=== PATIENT | female | born 1940 | race Caucasian/White ===

== ENCOUNTER → 2017-12-20 08:28 | Outpatient (CLI) | payer OTHER, MEDICARE, SELFPAY ==
[2017-12-20 09:33] LABS: Alanine Aminotransferase 24 IU/L (9-52); Albumin 4.3 g/dL (3.5-5.0); Albumin Globulin Ratio 1.3 (1.0-2.8); Alkaline Phosphatase 76 U/L (38-126); Aspartate Aminotransferase 29 IU/L (14-36); BUN Creatinine Ratio 16.3 (6-22); Bilirubin Total 0.6 mg/dL (0.2-1.3); Blood Urea Nitrogen 13 mg/dL (7-17); Calcium 9.3 mg/dL (8.4-10.2); Carbon Dioxide 28 mmol/L (22-32); Chloride 103 mmol/L (98-107); Cholesterol 238 mg/dL (140-199); Estimated Glomerular Filt Rate > 60.0 mL/min (>60); Globulin 3.3 g/dL (1.7-4.1); Glucose 97 mg/dL (80-110); HDL Cholesterol 75 mg/dL (40-60); HEMOLYSIS < 15 (0-50); LDL Cholesterol Calculated 138 mg/dL (<100); Potassium 4.2 mmol/L (3.4-5.1); Sodium 141 mmol/L (137-145); Total Protein 7.6 g/dL (6.3-8.2); Triglycerides 125 mg/dL (35-150)
[2017-12-20 09:49] LABS: Vitamin D 25 Hydroxy (D3) 48.3 ng/mL (30.0-100.0)
[2017-12-20 10:40] LABS: Folate 6.3 ng/mL (2.76-20.0); Vitamin B12 503 pg/mL (239-931)
== END ==
PROVIDERS: PCP Family Medicine; Visit Provider Physician Assistant
DX: E78.5 Hyperlipidemia, unspecified (principal); M81.0 Age-related osteoporosis without current pathological fracture; E55.9 Vitamin D deficiency, unspecified; R53.83 Other fatigue
CPT/HCPCS: 36415; 80053; 80061; 82306; 82607; 82746

== ENCOUNTER → 2017-12-28 07:53 | Outpatient (CLI) | payer OTHER, MEDICARE, SELFPAY | PROVIDERS: PCP Family Medicine; Visit Provider Internal Medicine | DX: E27.8 Other specified disorders of adrenal gland (principal) | CPT/HCPCS: 36415; 80299 ==

== ENCOUNTER → 2018-09-01 08:25 | Outpatient (CLI) | payer OTHER, MEDICARE, SELFPAY ==
[2018-09-01 09:17] LABS: Add Manual Diff / Slide Review NO; Basophils Absolute Auto 100 /uL (0-100); Basophils Percent Auto 1.4 % (0-2); Eosinophils Absolute Auto 100 /uL (0-450); Eosinophils Percent Auto 1.9 % (2-4); Hematocrit 44.1 % (36-46); Hemoglobin 14.6 g/dL (12.0-16.0); Lymphocytes Absolute Auto 1800 /uL (1100-4500); Lymphocytes Percent Auto 33.7 % (25-40); Mean Corpuscular HGB Conc 33.1 % (30-36); Mean Corpuscular Hemoglobin 29.9 PG (26-34); Mean Corpuscular Volume 90.2 fL (80-100); Monocytes Absolute Auto 400 /uL (0-900); Neutrophils Absolute Auto 3000 /uL (1500-7000); Platelet Count 214 X10^3/uL (150-400); Red Blood Cell Count 4.89 X10^6/uL (4.0-5.2); White Blood Cell Count 5.4 X10^3/uL (4.5-11.0)
[2018-09-01 09:25] LABS: Alanine Aminotransferase 23 IU/L (9-52); Albumin 4.4 g/dL (3.5-5.0); Albumin Globulin Ratio 1.4 (1.0-2.8); Alkaline Phosphatase 69 U/L (38-126); Aspartate Aminotransferase 26 IU/L (14-36); BUN Creatinine Ratio 18.8 (6-22); Bilirubin Total 0.8 mg/dL (0.2-1.3); Blood Urea Nitrogen 15 mg/dL (7-17); Calcium 9.5 mg/dL (8.4-10.2); Carbon Dioxide 29 mmol/L (22-32); Chloride 103 mmol/L (98-107); Cholesterol 248 mg/dL (140-199); Estimated Glomerular Filt Rate > 60.0 mL/min (>60); Globulin 3.1 g/dL (1.7-4.1); Glucose 104 mg/dL (80-110); HDL Cholesterol 93 mg/dL (40-60); HEMOLYSIS < 15 (0-50); LDL Cholesterol Calculated 138 mg/dL (<100); Potassium 4.2 mmol/L (3.4-5.1); Sodium 140 mmol/L (137-145); Total Protein 7.5 g/dL (6.3-8.2); Triglycerides 85 mg/dL (35-150)
== END ==
PROVIDERS: PCP Family Medicine; Visit Provider Family Medicine
DX: E78.5 Hyperlipidemia, unspecified (principal)
CPT/HCPCS: 36415; 80053; 80061; 85025

== ENCOUNTER → 2018-09-02 13:20 | Outpatient (CLI) | payer OTHER, MEDICARE, SELFPAY | PROVIDERS: PCP Family Medicine; Visit Provider Family Medicine ==

== ENCOUNTER → 2018-12-23 07:34 | Outpatient (CLI) | payer OTHER, MEDICARE, SELFPAY ==
[2018-12-23 09:04] LABS: Cortisol AM (Before 10AM) 1.67 ug/dL (4.46-22.7)
== END ==
PROVIDERS: Family Provider Internal Medicine; PCP Internal Medicine; Visit Provider Internal Medicine Endocrinology, Diabetes & Metabolism
DX: E27.8 Other specified disorders of adrenal gland (principal)
CPT/HCPCS: 36415; 80299; 82533

== ENCOUNTER → 2019-01-30 13:56 | Outpatient (CLI) | payer OTHER, MEDICARE, SELFPAY | PROVIDERS: Family Provider Internal Medicine; PCP Internal Medicine; Visit Provider Internal Medicine | DX: Z13.820 Encounter for screening for osteoporosis (principal); M81.0 Age-related osteoporosis without current pathological fracture; Z78.0 Asymptomatic menopausal state; Z90.722 Acquired absence of ovaries, bilateral | CPT/HCPCS: 77080 ==

== ENCOUNTER → 2019-07-21 13:15 | Outpatient (CLI) | payer OTHER, MEDICARE, SELFPAY ==
--- NOTE | 2019-08-14 15:59 | PM.CARDMON.1 ---
Treasury Management Sales Consultant Report Referral & Results Date Patient Seen: 07/21/19 Requesting provider: Chitra Lr Indication: Palpitations Duration of monitoring (days): 14 Diary information: There were 4 patient triggered events and 3 patient diary entries. These events were all associated with sinus rhythm and or PACs Data: Minimum heart rate identified was 50 beats per minute at 23:05 on 07/31/2019 Maximum sinus heart rate was 134 beats per minute at 07:50 on 07/27/2019 Maximum overall heart rate was 210 beats per minute at 10:14 on 07/23/2019 during a 5 beat run of SVT Approximately 1.4% of identified beats were supraventricular ectopic in origin or PACs Less than 1% of identified beats were PVCs or ventricular ectopic beats There were 9 runs of SVT/atrial tachycardia the longest lasting 13 beats at a rate of 121 beats per minute which was probably atrial tachycardia rather than true SVT Impression: Occasional PACs as above, perhaps associated patient's symptoms Clinical correlation suggested
== END ==
PROVIDERS: Family Provider Family Medicine; PCP Internal Medicine; Referring Provider Family Medicine; Visit Provider Family Medicine
DX: R00.2 Palpitations (principal)
CPT/HCPCS: 0296T; 0298T

== ENCOUNTER 2019-08-10 15:15 | Outpatient (RCR) | payer OTHER, MEDICARE, SELFPAY ==
--- NOTE | 2019-06-10 10:30 | PT.OPPOC ---
Physical, Occupational & Speech Therapy At [facility] Current Diagnoses Pain in right hip (06/10/19) Sacroiliitis, not elsewhere classified (06/10/19) Spinal stenosis, lumbar region without neurogenic claudication (06/10/19) Weakness (06/10/19) Visit Care Team Role Provider Type CARL Santana Primary Care Provider Advanced Supervisor [employer] Specialty: Family Practice Address: [address] [place] [address], [facility] [place], [address] Email: [email or web address] Jayy Zelaya MD Attending Provider Non-Staff Specialty: Orthopedics Address: [address] [place] [address], [id number] Email: Plan Of Care PT-OP-T Assessment and Plan Start: 06/10/19 12:29 Freq: Status: Active Protocol: Document 06/10/19 09:45 DCW (Rec: 06/11/19 11:21 DCW [id number]) Physical Therapy Assessment Rehab Potential Rehabilitation Potential Good Evaluation Complexity Number of Personal Factors/Comorbidities 1-2 Number of Body Systems Impaired 3 Clinical Presentation at Evaluation Stable Impairments Impairments Activity Tolerance,Pain,ROM, Soft Tissue Mobility,Strength, Tone Other Impairments history of R anterior-approach PATTI Goals Four Impairment Pt exhibits a 3-/5 MMT of her right hip internal rotators Usp Goal (LTG) Pt to present with a gross LE MMT of 4+/5 LTG Duration 08/09/19 Three Impairment Pt experiences increased pain when carrying a half gallon of milk Usp Goal (LTG) Pt to tolerate lifting ten pounds with no increased back or hip pain to improve her ability to carry groceries in from her car. LTG Duration 08/09/19 Two Impairment Pt unable to ascend and descend stairs with a step- over gait pattern Usp Goal (LTG) Pt to utilizer a step-over- step gait pattern 100% of the time when ascending or descending stairs LTG Duration 08/09/19 One Impairment Pt does not have an appropiate home exercise program Short Term Goal (STG) Pt to be independent and compliant with an appropriate HEP STG Duration 07/11/19 Assessment Summary Assessment Pt presents with right hip dysfunction caused by very weak R internal rotators combined with hypertonic external rotators, resulting in a changed gait pattern and sciaticia along her bilateral LEs, R>L. Pt has difficulty with ascending and descending stairs secondary to right leg weakness, and also struggles with lifting/carrying anything heavier than 4-5 pounds. Pt should benefit from skilled therapy focusing on hip strengthening, decreasing tone in her piriformis, QL, and ITB, core strengthening, and flexibility training. Physical Therapy Plan Frequency and Duration Frequency of Treatment 2x/Week Duration of Treatment 12 weeks Plan of Care Start Date 06/10/19 Plan of Care End Date 09/02/19 Therapeutic Interventions Therapeutic Interventions Gait Training,Home Exercise Program,Joint Mobilizations, Manual Therapy,Neuromuscular Re-education,Patient/Caregiver Education,Self-Care/Home Management,Soft Tissue Mobilization,Therapeutic Exercises Modalities Cold Pack/Ice Massage,Electric Stimulation,Hot Packs, Ultrasound Plan of Care Dates Plan of Care Start Date 06/10/19 Plan of Care End Date 09/02/19 Electronically Signed by: Rosendo Galan, PT 06/11/19 1125 Please Sign and Return: I have reviewed this Plan of Care and certify that the skilled therapy services above are required to meet the patient?s needs. Physician Signature Date Printed Name and Credentials Clinical Instructor Signature Printed Name and Credentials
--- NOTE | 2019-06-10 10:30 | PT.OIE ---
Current Diagnoses Pain in right hip (06/10/19) Sacroiliitis, not elsewhere classified (06/10/19) Spinal stenosis, lumbar region without neurogenic claudication (06/10/19) Weakness (06/10/19) Past Medical History (Last Updated 11/05/17 @ 16:30 by Rose Justin LPN) Abnormal Pap smear of cervix (Resolved ~1986) Bilateral tinnitus (Chronic Unknown) Cataracts, bilateral (Resolved 2014) Chickenpox (Resolved Unknown) Chronic back pain (Chronic 2006) Depression (Chronic Unknown) Fractures (Resolved 1999) GERD (gastroesophageal reflux disease) (Chronic ~2004) Hypercholesterolemia (Chronic ~2017) Measles (Resolved Unknown) Mumps (Resolved Unknown) Muscle spasm (Resolved 2011) Osteoarthritis (Chronic Unknown) Vertigo (Chronic 1981) Past Surgical History History of hip replacement History of total mastectomy Status post hysterectomy with oophorectomy Visit Care Team Role Provider Type CARL Santana Primary Care Provider Advanced Dry Cleaning Attendant Specialty: Family Practice Address: [address] [place] [address], [facility] Email: [email or web address] Jayy Zelaya MD Attending Provider Non-Staff Specialty: Orthopedics Address: [address] [place] [address], [facility] Email: Physical Therapy Initial Evaluation PT-OP-A Visit Information Start: 06/10/19 12:29 Freq: Status: Active Protocol: Document 06/10/19 09:45 DCW (Rec: 06/10/19 18:26 [facility] [id number]) Out-Patient Physical Therapy Visit Information Visit Information Visit Type Initial Evaluation Visit Start Time 09:45 Visit Stop Time 10:30 Total Visit Minutes 45 Visit Number 1 Number of PLASTERER APPRENTICE Visits 0 Evaluation Information Evaluation Date 06/10/19 PT-OP-B Current Condition Start: 06/10/19 12:29 Freq: Status: Active Protocol: Document 06/10/19 09:45 DCW (Rec: 06/10/19 18:26 [facility] [id number]) Current Condition History of Current Condition Onset Date one year Current Complaints Back pain and R leg pain/ weakness History of Current Condition Pt is a 78 year old female presenting with a one year history of low back and leg pain R>L, complete with occasional weakness. Pt reports that it feels like something slips out around L4, L5, and goes down my leg, mostly the right, sometimes bilaterally, and my right leg just gets really weak, and I can't go up stairs with it. I will go to the chiropractor, and he'll get me back in place , and it lasts about a day. I' ll go to a massage therapist, and she'll really work on soft tissue, and I'll feel better , but it still only lasts about one day. Pt also reports that if she lifts something, even carrying a half gallon of milk in from her car, she'll feel it in my SI. Prior Treatments and Tests 4 years s/p R anterior approach PATTI PT-OP-C Subjective Start: 06/10/19 12:29 Freq: Status: Active Protocol: Document 06/10/19 09:45 DCW (Rec: 06/10/19 18:26 [facility] [id number]) OP-PT Subjective Patient Comments Patient Comments Pt reports that the difficulty lifting is probably the worst thing about it, but that the difficulty on stairs affects her more frequently. Patient Reported Progress Worse Patient Questionnaires Oswestry Low Back Index Oswestry Score 19/50 = 38% OP-PT Pain Assessment Pain Assessment Grid Paper Pain Assessment Grid Completed Yes Location Right Lower Back Intensity 5 Scale Used Numeric (1 - 10) PT-OP-F Manual Assessment Start: 06/10/19 12:29 Freq: Status: Active Protocol: Document 06/10/19 09:45 DCW (Rec: 06/10/19 18:26 [facility] [id number]) Manual Assessments Soft Tissue Assessment Soft Tissue Mobility Assessment Severe tone and tenderness to palpation 3/4 - pain with wincing along right QL, right piriformis, right ITB Mild tone and tenderness to palpation 1/4 - complaint of pain along left QL and Piriformis PT-OP-K Range of Motion Start: 06/10/19 12:29 Freq: Status: Active Protocol: Document 06/10/19 09:45 DCW (Rec: 06/10/19 18:26 [facility] [id number]) Lumbar Spine Range of Motion Lumbar Spine Active Degrees Testing Position Standing Flexion 53 Extension 25 Lateral Flexion Left 45 Lateral Flexion Right 41 ROM Limitations Muscle Tone,Pain Comments Lateral flexion measured in cm from floor to finger tips PT-OP-L Special Tests Start: 06/10/19 12:29 Freq: Status: Active Protocol: Document 06/10/19 09:45 DCW (Rec: 06/10/19 18:26 [facility] [id number]) Special Tests Lumbar Spine Special Tests Straight Leg Raise Test Results HS tightness Comments R=50?, L=65? Slump Test Results Negative A-P Shearing Test Results R SI pain Compression Test Results Negative Hip Special Tests Nona's Test Test Results B positive Piriformis Test Results R positive IFEOMA Test Results R posterior hip pain PT-OP-M Strength Start: 06/10/19 12:29 Freq: Status: Active Protocol: Document 06/10/19 09:45 DC (Rec: 06/10/19 18:26 [facility] [id number]) Hip Strength Hip Manual Muscle Testing Right Flexion (L2) 4 Good Abduction 4 Good Adduction 4+ Good+ External Rotation 4 Good Internal Rotation 3- Fair- Left Flexion (L2) 4+ Good+ Abduction 4+ Good+ Adduction 4+ Good+ External Rotation 4+ Good+ Internal Rotation 4+ Good+ Knee Strength Knee Manual Muscle Testing Right Flexion (S2) 4+ Good+ Extension (L3) 4+ Good+ Left Flexion (S2) 4+ Good+ Extension (L3) 4+ Good+ PT-OP-Q Treatments Start: 06/10/19 12:29 Freq: Status: Active Protocol: Document 06/10/19 09:45 DC (Rec: 06/10/19 18:26 [facility] [id number]) Therapeutic Exercises Sitting Exercises 2 Sitting Exercise Name Resisted hip IR Side right 1 Sitting Exercise Name Seated Figure-4 piriformis stretch Side bilateral PT-OP-T Assessment and Plan Start: 06/10/19 12:29 Freq: Status: Active Protocol: Document 06/10/19 09:45 DC (Rec: 06/11/19 11:21 [facility] [id number]) Physical Therapy Assessment Rehab Potential Rehabilitation Potential Good Evaluation Complexity Number of Personal Factors/Comorbidities 1-2 Number of Body Systems Impaired 3 Clinical Presentation at Evaluation Stable Impairments Impairments Activity Tolerance,Pain,ROM, Soft Tissue Mobility,Strength, Tone Other Impairments history of R anterior-approach PATTI Goals Four Impairment Pt exhibits a 3-/5 MMT of her right hip internal rotators Jail Goal (LTG) Pt to present with a gross LE MMT of 4+/5 LTG Duration 08/09/19 Three Impairment Pt experiences increased pain when carrying a half gallon of milk Retail [employer] Specialist Goal (LTG) Pt to tolerate lifting ten pounds with no increased back or hip pain to improve her ability to carry groceries in from her car. LTG Duration 08/09/19 Two Impairment Pt unable to ascend and descend stairs with a step- over gait pattern Jail Goal (LTG) Pt to utilizer a step-over- step gait pattern 100% of the time when ascending or descending stairs LTG Duration 08/09/19 One Impairment Pt does not have an appropiate home exercise program Short Term Goal (STG) Pt to be independent and compliant with an appropriate HEP STG Duration 07/11/19 Assessment Summary Assessment Pt presents with right hip dysfunction caused by very weak R internal rotators combined with hypertonic external rotators, resulting in a changed gait pattern and sciaticia along her bilateral LEs, R>L. Pt has difficulty with ascending and descending stairs secondary to right leg weakness, and also struggles with lifting/carrying anything heavier than 4-5 pounds. Pt should benefit from skilled therapy focusing on hip strengthening, decreasing tone in her piriformis, QL, and ITB , core strengthening, and flexibility training. Physical Therapy Plan Frequency and Duration Frequency of Treatment 2x/Week Duration of Treatment 12 weeks Plan of Care Start Date 06/10/19 Plan of Care End Date 09/02/19 Therapeutic Interventions Therapeutic Interventions Gait Training,Home Exercise Program,Joint Mobilizations, Manual Therapy,Neuromuscular Re-education,Patient/Caregiver Education,Self-Care/Home Management,Soft Tissue Mobilization,Therapeutic Exercises Modalities Cold Pack/Ice Massage,Electric Stimulation,Hot Packs, Ultrasound
--- NOTE | 2019-06-12 09:43 | PT.OTN ---
Current Diagnoses Pain in right hip (06/12/19) Sacroiliitis, not elsewhere classified (06/12/19) Spinal stenosis, lumbar region without neurogenic claudication (06/12/19) Weakness (06/12/19) Physical Therapy Treatment Note PT-OP-A Visit Information Start: 06/10/19 12:29 Freq: Status: Active Protocol: Document 06/12/19 09:00 DCW (Rec: 06/12/19 09:43 DCW [id number]) Out-Patient Physical Therapy Visit Information Visit Information Visit Type Treatment Note Visit Start Time 09:00 Visit Stop Time 09:45 Total Visit Minutes 45 Visit Number 2 Number of DELIVERER MERCHANDISE Visits 0 Evaluation Information Evaluation Date 06/10/19 PT-OP-B Current Condition Start: 06/10/19 12:29 Freq: Status: Active Protocol: Document 06/10/19 09:45 DCW (Rec: 06/10/19 18:26 DCW [id number]) Current Condition History of Current Condition Onset Date one year Current Complaints Back pain and R leg pain/ weakness History of Current Condition Pt is a 78 year old female presenting with a one year history of low back and leg pain R>L, complete with occasional weakness. Pt reports that it feels like something slips out around L4, L5, and goes down my leg, mostly the right, sometimes bilaterally, and my right leg just gets really weak, and I can't go up stairs with it. I will go to the chiropractor, and he'll get me back in place , and it lasts about a day. I' ll go to a massage therapist, and she'll really work on soft tissue, and I'll feel better, but it still only lasts about one day. Pt also reports that if she lifts something, even carrying a half gallon of milk in from her car, she'll feel it in my SI. Prior Treatments and Tests 4 years s/p R anterior approach PATTI PT-OP-C Subjective Start: 06/10/19 12:29 Freq: Status: Active Protocol: Document 06/12/19 09:00 DCW (Rec: 06/12/19 09:43 DCW [id number]) OP-PT Subjective Patient Comments Patient Comments Surprisingly, it is feeling better. I was able to get up in the middle of the night and stretch it out, and I've already noticed that steps have been easier. PT-OP-F Manual Assessment Start: 06/10/19 12:29 Freq: Status: Active Protocol: Document 06/10/19 09:45 DCW (Rec: 06/10/19 18:26 DCW [id number]) Manual Assessments Soft Tissue Assessment Soft Tissue Mobility Assessment Severe tone and tenderness to palpation 3/4 - pain with wincing along right QL, right piriformis, right ITB Mild tone and tenderness to palpation 1/4 - complaint of pain along left QL and Piriformis PT-OP-K Range of Motion Start: 06/10/19 12:29 Freq: Status: Active Protocol: Document 06/10/19 09:45 DCW (Rec: 06/10/19 18:26 DCW [id number]) Lumbar Spine Range of Motion Lumbar Spine Active Degrees Testing Position Standing Flexion 53 Extension 25 Lateral Flexion Left 45 Lateral Flexion Right 41 ROM Limitations Muscle Tone,Pain Comments Lateral flexion measured in cm from floor to finger tips PT-OP-L Special Tests Start: 06/10/19 12:29 Freq: Status: Active Protocol: Document 06/10/19 09:45 DCW (Rec: 06/10/19 18:26 DCW [id number]) Special Tests Lumbar Spine Special Tests Straight Leg Raise Test Results HS tightness Comments R=50?, L=65? Slump Test Results Negative A-P Shearing Test Results R SI pain Compression Test Results Negative Hip Special Tests Nona's Test Test Results B positive Piriformis Test Results R positive IFEOMA Test Results R posterior hip pain PT-OP-M Strength Start: 06/10/19 12:29 Freq: Status: Active Protocol: Document 06/10/19 09:45 DCW (Rec: 06/10/19 18:26 DCW [id number]) Hip Strength Hip Manual Muscle Testing Right Flexion (L2) 4 Good Abduction 4 Good Adduction 4+ Good+ External Rotation 4 Good Internal Rotation 3- Fair- Left Flexion (L2) 4+ Good+ Abduction 4+ Good+ Adduction 4+ Good+ External Rotation 4+ Good+ Internal Rotation 4+ Good+ Knee Strength Knee Manual Muscle Testing Right Flexion (S2) 4+ Good+ Extension (L3) 4+ Good+ Left Flexion (S2) 4+ Good+ Extension (L3) 4+ Good+ PT-OP-Q Treatments Start: 06/10/19 12:29 Freq: Status: Active Protocol: Document 06/12/19 09:00 DCW (Rec: 06/12/19 09:43 DCW [id number]) Cardio Equipment Recumbent Elliptical (Biodex) Duration (Minutes) 5 Resistance 3 Seat Position 7 Gym Equipment Cable Column (Body Solid) Hip Adduction Resistance 40# Hip Abduction Resistance 20# Shuttle Recovery Unilateral Squats Resistance 37# Shuttle Recovery Platform Stable Bilateral Squats Resistance 75# Shuttle Recovery Platform Stable Therapeutic Exercises Supine Exercises Piriformis Stretch Supine Exercise Name [id number] chest Side right Standing Exercises Resisted hip rotation Standing Exercise Name Knee on stool, rotate ER/IR vs resistance Side right Resistance Lv 1 Equipment Used T-band Other Exercises Resisted Ambulation Other Exercise Name Resisted side-stepping, forward, backward Manual Therapy Treatment Soft Tissue Mobilization Piriformis Body Location R Piriformis Mobilization Type Strumming,Sustained Pressure Intensity/Depth Deep Psoas Body Location R Psoas Mobilization Type Strumming,Sustained Pressure Intensity/Depth Deep PT-OP-T Assessment and Plan Start: 06/10/19 12:29 Freq: Status: Active Protocol: Document 06/12/19 09:00 DCW (Rec: 06/12/19 09:43 DCW [id number]) Physical Therapy Assessment Impairments Impairments Activity Tolerance,Pain,ROM, Soft Tissue Mobility,Strength, Tone Other Impairments history of R anterior-approach PATTI Goals Four Impairment Pt exhibits a 3-/5 MMT of her right hip internal rotators Silk Soaker Goal (LTG) Pt to present with a gross LE MMT of 4+/5 LTG Duration 08/09/19 Three Impairment Pt experiences increased pain when carrying a half gallon of milk Group Home Goal (LTG) Pt to tolerate lifting ten pounds with no increased back or hip pain to improve her ability to carry groceries in from her car. LTG Duration 08/09/19 Two Impairment Pt unable to ascend and descend stairs with a step- over gait pattern Silk Soaker Goal (LTG) Pt to utilizer a step-over- step gait pattern 100% of the time when ascending or descending stairs LTG Duration 08/09/19 One Impairment Pt does not have an appropiate home exercise program Short Term Goal (STG) Pt to be independent and compliant with an appropriate HEP STG Duration 07/11/19 Assessment Summary Assessment Pt tolerated treatment very well, still demonstrates very limited IR strength, but improving overall with piriformis tone and gross LE strength. Physical Therapy Plan Frequency and Duration Frequency of Treatment 2x/Week Duration of Treatment 12 weeks Plan of Care Start Date 06/10/19 Plan of Care End Date 09/02/19 Therapeutic Interventions Therapeutic Interventions Gait Training,Home Exercise Program,Joint Mobilizations, Manual Therapy,Neuromuscular Re-education,Patient/Caregiver Education,Self-Care/Home Management,Soft Tissue Mobilization,Therapeutic Exercises Modalities Cold Pack/Ice Massage,Electric Stimulation,Hot Packs, Ultrasound
--- NOTE | 2019-06-29 10:30 | PT.OTN ---
Current Diagnoses Pain in right hip (06/29/19) Sacroiliitis, not elsewhere classified (06/29/19) Spinal stenosis, lumbar region without neurogenic claudication (06/29/19) Weakness (06/29/19) Physical Therapy Treatment Note PT-OP-A Visit Information Start: 06/10/19 12:29 Freq: Status: Active Protocol: Document 06/29/19 09:45 DCW (Rec: 06/29/19 10:30 DCW [id number]) Out-Patient Physical Therapy Visit Information Visit Information Visit Type Treatment Note Visit Start Time 09:45 Visit Stop Time 10:30 Total Visit Minutes 45 Visit Number 3 Number of BALANCE CLERK Visits 0 Evaluation Information Evaluation Date 06/10/19 PT-OP-B Current Condition Start: 06/10/19 12:29 Freq: Status: Active Protocol: Document 06/10/19 09:45 DCW (Rec: 06/10/19 18:26 DCW [id number]) Current Condition History of Current Condition Onset Date one year Current Complaints Back pain and R leg pain/ weakness History of Current Condition Pt is a 78 year old female presenting with a one year history of low back and leg pain R>L, complete with occasional weakness. Pt reports that it feels like something slips out around L4, L5, and goes down my leg, mostly the right, sometimes bilaterally, and my right leg just gets really weak, and I can't go up stairs with it. I will go to the chiropractor, and he'll get me back in place , and it lasts about a day. I' ll go to a massage therapist, and she'll really work on soft tissue, and I'll feel better, but it still only lasts about one day. Pt also reports that if she lifts something, even carrying a half gallon of milk in from her car, she'll feel it in my SI. Prior Treatments and Tests 4 years s/p R anterior approach PATTI PT-OP-C Subjective Start: 06/10/19 12:29 Freq: Status: Active Protocol: Document 06/29/19 09:45 DCW (Rec: 06/29/19 10:30 DCW [id number]) OP-PT Subjective Patient Comments Patient Comments Whatever you did last time worked wonders, so I've felt a big leap forward. PT-OP-F Manual Assessment Start: 06/10/19 12:29 Freq: Status: Active Protocol: Document 06/10/19 09:45 DCW (Rec: 06/10/19 18:26 [facility] [id number]) Manual Assessments Soft Tissue Assessment Soft Tissue Mobility Assessment Severe tone and tenderness to palpation 3/4 - pain with wincing along right QL, right piriformis, right ITB Mild tone and tenderness to palpation 1/4 - complaint of pain along left QL and Piriformis PT-OP-K Range of Motion Start: 06/10/19 12:29 Freq: Status: Active Protocol: Document 06/10/19 09:45 DCW (Rec: 06/10/19 18:26 DC [id number]) Lumbar Spine Range of Motion Lumbar Spine Active Degrees Testing Position Standing Flexion 53 Extension 25 Lateral Flexion Left 45 Lateral Flexion Right 41 ROM Limitations Muscle Tone,Pain Comments Lateral flexion measured in cm from floor to finger tips PT-OP-L Special Tests Start: 06/10/19 12:29 Freq: Status: Active Protocol: Document 06/10/19 09:45 DCW (Rec: 06/10/19 18:26 [facility] [id number]) Special Tests Lumbar Spine Special Tests Straight Leg Raise Test Results HS tightness Comments R=50?, L=65? Slump Test Results Negative A-P Shearing Test Results R SI pain Compression Test Results Negative Hip Special Tests Nona's Test Test Results B positive Piriformis Test Results R positive IFEOMA Test Results R posterior hip pain PT-OP-M Strength Start: 06/10/19 12:29 Freq: Status: Active Protocol: Document 06/10/19 09:45 DCW (Rec: 06/10/19 18:26 DC [id number]) Hip Strength Hip Manual Muscle Testing Right Flexion (L2) 4 Good Abduction 4 Good Adduction 4+ Good+ External Rotation 4 Good Internal Rotation 3- Fair- Left Flexion (L2) 4+ Good+ Abduction 4+ Good+ Adduction 4+ Good+ External Rotation 4+ Good+ Internal Rotation 4+ Good+ Knee Strength Knee Manual Muscle Testing Right Flexion (S2) 4+ Good+ Extension (L3) 4+ Good+ Left Flexion (S2) 4+ Good+ Extension (L3) 4+ Good+ PT-OP-Q Treatments Start: 06/10/19 12:29 Freq: Status: Active Protocol: Document 06/29/19 09:45 DCW (Rec: 06/29/19 10:30 DCW [id number]) Cardio Equipment Recumbent Elliptical (Biodex) Duration (Minutes) 5 Resistance 5 Seat Position 6 Gym Equipment Cable Column (Body Solid) Hip Adduction Resistance 40# Hip Abduction Resistance 20# Shuttle Recovery Unilateral Squats Resistance 37# Shuttle Recovery Platform Stable Bilateral Squats Resistance 75# Shuttle Recovery Platform Stable Therapeutic Exercises Standing Exercises Resisted hip rotation Standing Exercise Name Knee on stool, rotate ER/IR vs resistance Side right Resistance Lv 1 Equipment Used T-band Other Exercises Resisted Ambulation Other Exercise Name Resisted side-stepping, forward, backward Resistance Yellow Equipment Used T-band Manual Therapy Treatment Soft Tissue Mobilization Piriformis Body Location R Piriformis Mobilization Type Strumming,Sustained Pressure Intensity/Depth Deep Psoas Body Location R Psoas Mobilization Type Strumming,Sustained Pressure Intensity/Depth Deep PT-OP-T Assessment and Plan Start: 06/10/19 12:29 Freq: Status: Active Protocol: Document 06/29/19 09:45 DCW (Rec: 06/29/19 10:30 DCW [id number]) Physical Therapy Assessment Impairments Impairments Activity Tolerance,Pain,ROM, Soft Tissue Mobility,Strength, Tone Other Impairments history of R anterior-approach PATTI Goals Four Impairment Pt exhibits a 3-/5 MMT of her right hip internal rotators Group Home Goal (LTG) Pt to present with a gross LE MMT of 4+/5 LTG Duration 08/09/19 Three Impairment Pt experiences increased pain when carrying a half gallon of milk Marble Rubber Goal (LTG) Pt to tolerate lifting ten pounds with no increased back or hip pain to improve her ability to carry groceries in from her car. LTG Duration 08/09/19 Two Impairment Pt unable to ascend and descend stairs with a step- over gait pattern Group Home Goal (LTG) Pt to utilizer a step-over- step gait pattern 100% of the time when ascending or descending stairs LTG Duration 08/09/19 One Impairment Pt does not have an appropriate home exercise program Short Term Goal (STG) Pt to be independent and compliant with an appropriate HEP STG Duration 07/11/19 Assessment Summary Assessment Pt noticeably improved from her last appointment, moving with less pain and stiffness, able to perform exercises with minimal complaints of difficulty. Physical Therapy Plan Frequency and Duration Frequency of Treatment 2x/Week Duration of Treatment 12 weeks Plan of Care Start Date 06/10/19 Plan of Care End Date 09/02/19 Therapeutic Interventions Therapeutic Interventions Gait Training,Home Exercise Program,Joint Mobilizations, Manual Therapy,Neuromuscular Re-education,Patient/Caregiver Education,Self-Care/Home Management,Soft Tissue Mobilization,Therapeutic Exercises Modalities Cold Pack/Ice Massage,Electric Stimulation,Hot Packs, Ultrasound
--- NOTE | 2019-07-08 16:00 | PT.OTN ---
Current Diagnoses Pain in right hip (07/08/19) Sacroiliitis, not elsewhere classified (07/08/19) Spinal stenosis, lumbar region without neurogenic claudication (07/08/19) Weakness (07/08/19) Physical Therapy Treatment Note PT-OP-A Visit Information Start: 06/10/19 12:29 Freq: Status: Active Protocol: Document 07/08/19 15:15 DCW (Rec: 07/08/19 16:00 DCW [id number]) Out-Patient Physical Therapy Visit Information Visit Information Visit Type Treatment Note Visit Start Time 15:15 Visit Stop Time 16:00 Total Visit Minutes 45 Visit Number 4 Number of CRUSHER LOADER OPERATOR Visits 0 Evaluation Information Evaluation Date 06/10/19 PT-OP-B Current Condition Start: 06/10/19 12:29 Freq: Status: Active Protocol: Document 06/10/19 09:45 DCW (Rec: 06/10/19 18:26 DCW [id number]) Current Condition History of Current Condition Onset Date one year Current Complaints Back pain and R leg pain/ weakness History of Current Condition Pt is a 78 year old female presenting with a one year history of low back and leg pain R>L, complete with occasional weakness. Pt reports that it feels like something slips out around L4, L5, and goes down my leg, mostly the right, sometimes bilaterally, and my right leg just gets really weak, and I can't go up stairs with it. I will go to the chiropractor, and he'll get me back in place , and it lasts about a day. I' ll go to a massage therapist, and she'll really work on soft tissue, and I'll feel better, but it still only lasts about one day. Pt also reports that if she lifts something, even carrying a half gallon of milk in from her car, she'll feel it in my SI. Prior Treatments and Tests 4 years s/p R anterior approach PATTI PT-OP-C Subjective Start: 06/10/19 12:29 Freq: Status: Active Protocol: Document 07/08/19 15:15 DCW (Rec: 07/08/19 16:00 DCW [id number]) OP-PT Subjective Patient Comments Patient Comments My back hasn't hurt since my first visit. Pt notes she woke up today with everything hurting, but that her hip and back are not the issue. PT-OP-F Manual Assessment Start: 06/10/19 12:29 Freq: Status: Active Protocol: Document 06/10/19 09:45 DCW (Rec: 06/10/19 18:26 DCW [id number]) Manual Assessments Soft Tissue Assessment Soft Tissue Mobility Assessment Severe tone and tenderness to palpation 3/4 - pain with wincing along right QL, right piriformis, right ITB Mild tone and tenderness to palpation 1/4 - complaint of pain along left QL and Piriformis PT-OP-K Range of Motion Start: 06/10/19 12:29 Freq: Status: Active Protocol: Document 06/10/19 09:45 DCW (Rec: 06/10/19 18:26 DCW [id number]) Lumbar Spine Range of Motion Lumbar Spine Active Degrees Testing Position Standing Flexion 53 Extension 25 Lateral Flexion Left 45 Lateral Flexion Right 41 ROM Limitations Muscle Tone,Pain Comments Lateral flexion measured in cm from floor to finger tips PT-OP-L Special Tests Start: 06/10/19 12:29 Freq: Status: Active Protocol: Document 06/10/19 09:45 DCW (Rec: 06/10/19 18:26 DCW [id number]) Special Tests Lumbar Spine Special Tests Straight Leg Raise Test Results HS tightness Comments R=50?, L=65? Slump Test Results Negative A-P Shearing Test Results R SI pain Compression Test Results Negative Hip Special Tests Nona's Test Test Results B positive Piriformis Test Results R positive IFEOMA Test Results R posterior hip pain PT-OP-M Strength Start: 06/10/19 12:29 Freq: Status: Active Protocol: Document 06/10/19 09:45 DCW (Rec: 06/10/19 18:26 DCW [id number]) Hip Strength Hip Manual Muscle Testing Right Flexion (L2) 4 Good Abduction 4 Good Adduction 4+ Good+ External Rotation 4 Good Internal Rotation 3- Fair- Left Flexion (L2) 4+ Good+ Abduction 4+ Good+ Adduction 4+ Good+ External Rotation 4+ Good+ Internal Rotation 4+ Good+ Knee Strength Knee Manual Muscle Testing Right Flexion (S2) 4+ Good+ Extension (L3) 4+ Good+ Left Flexion (S2) 4+ Good+ Extension (L3) 4+ Good+ PT-OP-Q Treatments Start: 06/10/19 12:29 Freq: Status: Active Protocol: Document 07/08/19 15:15 DCW (Rec: 07/08/19 16:00 DCW [id number]) Cardio Equipment Recumbent Elliptical (Biodex) Duration (Minutes) 6 Resistance 5 Seat Position 6 Gym Equipment Cable Column (Body Solid) Hip Adduction Resistance 40# Hip Abduction Resistance 30# Shuttle Recovery Unilateral Squats Resistance 50# Shuttle Recovery Platform Stable Bilateral Squats Resistance 87# Shuttle Recovery Platform Stable Therapeutic Exercises Standing Exercises Resisted hip rotation Standing Exercise Name Knee on stool, rotate ER/IR vs resistance Side right Resistance Lv 2 Equipment Used T-band Other Exercises Resisted Ambulation Other Exercise Name Resisted side-stepping, forward, backward Resistance Green Equipment Used T-band Manual Therapy Treatment Soft Tissue Mobilization Piriformis Body Location R Piriformis Mobilization Type Strumming,Sustained Pressure Intensity/Depth Deep Psoas Body Location R Psoas Mobilization Type Strumming,Sustained Pressure Intensity/Depth Deep PT-OP-T Assessment and Plan Start: 06/10/19 12:29 Freq: Status: Active Protocol: Document 07/08/19 15:15 DCW (Rec: 07/08/19 16:00 DCW [id number]) Physical Therapy Assessment Impairments Impairments Activity Tolerance,Pain,ROM, Soft Tissue Mobility,Strength, Tone Other Impairments history of R anterior-approach PATTI Goals Four Impairment Pt exhibits a 3-/5 MMT of her right hip internal rotators Skilled Nursing Goal (LTG) Pt to present with a gross LE MMT of 4+/5 LTG Duration 08/09/19 Three Impairment Pt experiences increased pain when carrying a half gallon of milk Skilled Nursing Goal (LTG) Pt to tolerate lifting ten pounds with no increased back or hip pain to improve her ability to carry groceries in from her car. LTG Duration 08/09/19 Two Impairment Pt unable to ascend and descend stairs with a step- over gait pattern Skilled Nursing Goal (LTG) Pt to utilize a step-over- step gait pattern 100% of the time when ascending or descending stairs LTG Duration 08/09/19 One Impairment Pt does not have an appropriate home exercise program Short Term Goal (STG) Pt to be independent and compliant with an appropriate HEP STG Duration 07/11/19 Assessment Summary Assessment Pt continuing to show progress with her pain management and strength, still mostly limited with right IR. Physical Therapy Plan Frequency and Duration Frequency of Treatment 2x/Week Duration of Treatment 12 weeks Plan of Care Start Date 06/10/19 Plan of Care End Date 09/02/19 Therapeutic Interventions Therapeutic Interventions Gait Training,Home Exercise Program,Joint Mobilizations, Manual Therapy,Neuromuscular Re-education,Patient/Caregiver Education,Self-Care/Home Management,Soft Tissue Mobilization,Therapeutic Exercises Modalities Cold Pack/Ice Massage,Electric Stimulation,Hot Packs, Ultrasound
--- NOTE | 2019-07-10 16:40 | PT.OTN ---
Current Diagnoses Pain in right hip (07/10/19) Sacroiliitis, not elsewhere classified (07/10/19) Spinal stenosis, lumbar region without neurogenic claudication (07/10/19) Weakness (07/10/19) Physical Therapy Treatment Note PT-OP-A Visit Information Start: 06/10/19 12:29 Freq: Status: Active Protocol: Document 07/10/19 12:24 EG (Rec: 07/10/19 12:43 EG [id number]) Out-Patient Physical Therapy Visit Information Visit Information Visit Type Treatment Note Visit Start Time 09:00 Visit Stop Time 09:45 Total Visit Minutes 45 Visit Number 5 Number of WOOD STAINER Visits 0 PT-OP-B Current Condition Start: 06/10/19 12:29 Freq: Status: Active Protocol: Document 06/10/19 09:45 DCW (Rec: 06/10/19 18:26 DCW [id number]) Current Condition History of Current Condition Onset Date one year Current Complaints Back pain and R leg pain/ weakness History of Current Condition Pt is a 78 year old female presenting with a one year history of low back and leg pain R>L, complete with occasional weakness. Pt reports that it feels like something slips out around L4, L5, and goes down my leg, mostly the right, sometimes bilaterally, and my right leg just gets really weak, and I can't go up stairs with it. I will go to the chiropractor, and he'll get me back in place , and it lasts about a day. I' ll go to a massage therapist, and she'll really work on soft tissue, and I'll feel better, but it still only lasts about one day. Pt also reports that if she lifts something, even carrying a half gallon of milk in from her car, she'll feel it in my SI. Prior Treatments and Tests 4 years s/p R anterior approach PATTI PT-OP-C Subjective Start: 06/10/19 12:29 Freq: Status: Active Protocol: Document 07/10/19 12:24 EG (Rec: 07/10/19 12:43 EG [id number]) OP-PT Subjective Patient Comments Patient Comments The patient reported that she was doing okay today. She mentioned that she really enjoyed the soft tissue release that was done last time and thinks that really helped with her back. Patient also reported that her SI joint was acting up a little today. PT-OP-F Manual Assessment Start: 06/10/19 12:29 Freq: Status: Active Protocol: Document 06/10/19 09:45 DCW (Rec: 06/10/19 18:26 DCW [id number]) Manual Assessments Soft Tissue Assessment Soft Tissue Mobility Assessment Severe tone and tenderness to palpation 3/4 - pain with wincing along right QL, right piriformis, right ITB Mild tone and tenderness to palpation 1/4 - complaint of pain along left QL and Piriformis PT-OP-K Range of Motion Start: 06/10/19 12:29 Freq: Status: Active Protocol: Document 06/10/19 09:45 DCW (Rec: 06/10/19 18:26 DCW [id number]) Lumbar Spine Range of Motion Lumbar Spine Active Degrees Testing Position Standing Flexion 53 Extension 25 Lateral Flexion Left 45 Lateral Flexion Right 41 ROM Limitations Muscle Tone,Pain Comments Lateral flexion measured in cm from floor to finger tips PT-OP-L Special Tests Start: 06/10/19 12:29 Freq: Status: Active Protocol: Document 06/10/19 09:45 DCW (Rec: 06/10/19 18:26 DCW [id number]) Special Tests Lumbar Spine Special Tests Straight Leg Raise Test Results HS tightness Comments R=50?, L=65? Slump Test Results Negative A-P Shearing Test Results R SI pain Compression Test Results Negative Hip Special Tests Nona's Test Test Results B positive Piriformis Test Results R positive IFEOMA Test Results R posterior hip pain PT-OP-M Strength Start: 06/10/19 12:29 Freq: Status: Active Protocol: Document 06/10/19 09:45 DCW (Rec: 06/10/19 18:26 DCW [id number]) Hip Strength Hip Manual Muscle Testing Right Flexion (L2) 4 Good Abduction 4 Good Adduction 4+ Good+ External Rotation 4 Good Internal Rotation 3- Fair- Left Flexion (L2) 4+ Good+ Abduction 4+ Good+ Adduction 4+ Good+ External Rotation 4+ Good+ Internal Rotation 4+ Good+ Knee Strength Knee Manual Muscle Testing Right Flexion (S2) 4+ Good+ Extension (L3) 4+ Good+ Left Flexion (S2) 4+ Good+ Extension (L3) 4+ Good+ PT-OP-Q Treatments Start: 06/10/19 12:29 Freq: Status: Active Protocol: Document 07/10/19 12:24 EG (Rec: 07/10/19 12:43 EG [id number]) Cardio Equipment Recumbent Elliptical (Biodex) Duration (Minutes) 6 Resistance 5 Seat Position 6 Gym Equipment Cable Column (Body Solid) Hip Adduction Resistance 40# Reps/Time 20x Hip Abduction Resistance 30# Reps/Time 20x Therapeutic Exercises Supine Exercises Bridge with Adduction Supine Exercise Name Bridge with adduction Equipment Used green pilates ball Reps/Minutes 15x Comments attempted 1-legged - unable to do Sidelying Exercises Clams Sidelying Exercise Name Clams Resistance green TB Reps/Minutes 10x each side Standing Exercises Unilateral side step off step Standing Exercise Name Side step off 6 inch and 3 inch step Side bilateral Equipment Used 6 inch step, 3 inch step Reps/Minutes 8x each side Comments too advanced for patient - could not perform without knee or SI pain Standing Squats Standing Exercise Name Squats Equipment Used held on to wall railing Reps/Minutes 20x Other Exercises Resisted Ambulation Other Exercise Name Resisted side-stepping Resistance Green Equipment Used T-band Reps/Minutes [address] Comments Also performed without band - R hip was feeling weaker today Manual Therapy Treatment Soft Tissue Mobilization Psoas Body Location R Psoas Mobilization Type Sustained Pressure Intensity/Depth Deep PT-OP-T Assessment and Plan Start: 06/10/19 12:29 Freq: Status: Active Protocol: Document 07/10/19 12:24 EG (Rec: 07/10/19 12:43 EG [id number]) Physical Therapy Assessment Assessment Summary Assessment Patient tolerated therapeutic exercise fair today. She did have pain in SI joint intermittently and complained of hamstring and adductor cramping in the RLE during exercises. Patient should continue to strengthen the R hip abductors to help with SIJ stabilization when performing assymetrical activities such as stairs. Patient felt relief with psoas release and was shown psoas stretch (standing lunge) to do at home to continue with soft tissue lengthening of this area. Physical Therapy Plan Next Visit Focus/Plan Next Note Type Treatment Note Next Visit Plan Continue with hip abduction strengthening and R IR strengthening. Rena Verdin DPT, supervised all treatment performed by, and agreed with the plan of care, as performed by YOSHI Barney.
--- NOTE | 2019-07-13 14:30 | PT.OTN ---
Current Diagnoses Pain in right hip (07/13/19) Sacroiliitis, not elsewhere classified (07/13/19) Spinal stenosis, lumbar region without neurogenic claudication (07/13/19) Weakness (07/13/19) Physical Therapy Treatment Note PT-OP-A Visit Information Start: 06/10/19 12:29 Freq: Status: Active Protocol: Document 07/13/19 13:45 DCW (Rec: 07/13/19 14:30 DCW [id number]) Out-Patient Physical Therapy Visit Information Visit Information Visit Type Treatment Note Visit Start Time 13:45 Visit Stop Time 14:30 Total Visit Minutes 45 Visit Number 6 Number of WATER COMMISSIONER Visits 0 Evaluation Information Evaluation Date 06/10/19 PT-OP-B Current Condition Start: 06/10/19 12:29 Freq: Status: Active Protocol: Document 06/10/19 09:45 DCW (Rec: 06/10/19 18:26 DCW [id number]) Current Condition History of Current Condition Onset Date one year Current Complaints Back pain and R leg pain/ weakness History of Current Condition Pt is a 78 year old female presenting with a one year history of low back and leg pain R>L, complete with occasional weakness. Pt reports that it feels like something slips out around L4, L5, and goes down my leg, mostly the right, sometimes bilaterally, and my right leg just gets really weak, and I can't go up stairs with it. I will go to the chiropractor, and he'll get me back in place , and it lasts about a day. I' ll go to a massage therapist, and she'll really work on soft tissue, and I'll feel better, but it still only lasts about one day. Pt also reports that if she lifts something, even carrying a half gallon of milk in from her car, she'll feel it in my SI. Prior Treatments and Tests 4 years s/p R anterior approach PATTI PT-OP-C Subjective Start: 06/10/19 12:29 Freq: Status: Active Protocol: Document 07/13/19 13:45 DCW (Rec: 07/13/19 14:30 DCW [id number]) OP-PT Subjective Patient Comments Patient Comments Pt feels that something has shifted out of place in the L4 -L5 region, and I've had hip pain and haile splints since Saturday. PT-OP-F Manual Assessment Start: 06/10/19 12:29 Freq: Status: Active Protocol: Document 06/10/19 09:45 DCW (Rec: 06/10/19 18:26 DCW [id number]) Manual Assessments Soft Tissue Assessment Soft Tissue Mobility Assessment Severe tone and tenderness to palpation 3/4 - pain with wincing along right QL, right piriformis, right ITB Mild tone and tenderness to palpation 1/4 - complaint of pain along left QL and Piriformis PT-OP-K Range of Motion Start: 06/10/19 12:29 Freq: Status: Active Protocol: Document 06/10/19 09:45 DCW (Rec: 06/10/19 18:26 DCW [id number]) Lumbar Spine Range of Motion Lumbar Spine Active Degrees Testing Position Standing Flexion 53 Extension 25 Lateral Flexion Left 45 Lateral Flexion Right 41 ROM Limitations Muscle Tone,Pain Comments Lateral flexion measured in cm from floor to finger tips PT-OP-L Special Tests Start: 06/10/19 12:29 Freq: Status: Active Protocol: Document 06/10/19 09:45 DCW (Rec: 06/10/19 18:26 DCW [id number]) Special Tests Lumbar Spine Special Tests Straight Leg Raise Test Results HS tightness Comments R=50?, L=65? Slump Test Results Negative A-P Shearing Test Results R SI pain Compression Test Results Negative Hip Special Tests Nona's Test Test Results B positive Piriformis Test Results R positive IFEOMA Test Results R posterior hip pain PT-OP-M Strength Start: 06/10/19 12:29 Freq: Status: Active Protocol: Document 06/10/19 09:45 DCW (Rec: 06/10/19 18:26 DCW [id number]) Hip Strength Hip Manual Muscle Testing Right Flexion (L2) 4 Good Abduction 4 Good Adduction 4+ Good+ External Rotation 4 Good Internal Rotation 3- Fair- Left Flexion (L2) 4+ Good+ Abduction 4+ Good+ Adduction 4+ Good+ External Rotation 4+ Good+ Internal Rotation 4+ Good+ Knee Strength Knee Manual Muscle Testing Right Flexion (S2) 4+ Good+ Extension (L3) 4+ Good+ Left Flexion (S2) 4+ Good+ Extension (L3) 4+ Good+ PT-OP-Q Treatments Start: 06/10/19 12:29 Freq: Status: Active Protocol: Document 07/13/19 13:45 DCW (Rec: 07/13/19 14:30 DCW [id number]) Manual Therapy Treatment Soft Tissue Mobilization QL Body Location R QL Mobilization Type Sustained Pressure,Trigger Point Release Intensity/Depth Moderate Multifidi Body Location R Lumbar Multifidi Mobilization Type Sustained Pressure,Trigger Point Release Intensity/Depth Moderate Piriformis Body Location R Piriformis Mobilization Type Strumming,Sustained Pressure Intensity/Depth Deep Psoas Body Location R Psoas Mobilization Type Strumming,Sustained Pressure Intensity/Depth Deep Manual Traction Lower Extremity Details Long-axis R LE Body Position Supine PT-OP-T Assessment and Plan Start: 06/10/19 12:29 Freq: Status: Active Protocol: Document 07/13/19 13:45 DCW (Rec: 07/13/19 14:30 DCW [id number]) Physical Therapy Assessment Impairments Impairments Activity Tolerance,Pain,ROM, Soft Tissue Mobility,Strength, Tone Other Impairments history of R anterior-approach PATTI Goals Four Impairment Pt exhibits a 3-/5 MMT of her right hip internal rotators Residential Goal (LTG) Pt to present with a gross LE MMT of 4+/5 LTG Duration 08/09/19 Three Impairment Pt experiences increased pain when carrying a half gallon of milk Residential Goal (LTG) Pt to tolerate lifting ten pounds with no increased back or hip pain to improve her ability to carry groceries in from her car. LTG Duration 08/09/19 Two Impairment Pt unable to ascend and descend stairs with a step- over gait pattern Real Estate Leasing Agent Goal (LTG) Pt to utilize a [id number] gait pattern 100% of the time when ascending or descending stairs LTG Duration 08/09/19 One Impairment Pt does not have an appropriate home exercise program Short Term Goal (STG) Pt to be independent and compliant with an appropriate HEP STG Duration 07/11/19 Assessment Summary Assessment Focused on manual therapy today in an effort to combat pt's continuing muscle tightness and recent increased pain. Pt showed hypertonia in R QL, Multifidi, and Psoas. STM and manual stretching was effective in decreasing pt's discomfort. Physical Therapy Plan Frequency and Duration Frequency of Treatment 2x/Week Duration of Treatment 12 weeks Plan of Care Start Date 06/10/19 Plan of Care End Date 09/02/19 Therapeutic Interventions Therapeutic Interventions Gait Training,Home Exercise Program,Joint Mobilizations, Manual Therapy,Neuromuscular Re-education,Patient/Caregiver Education,Self-Care/Home Management,Soft Tissue Mobilization,Therapeutic Exercises Modalities Cold Pack/Ice Massage,Electric Stimulation,Hot Packs, Ultrasound Next Visit Focus/Plan Next Note Type Treatment Note Next Visit Plan Continue with hip abduction strengthening and R IR strengthening.
--- NOTE | 2019-07-15 12:09 | PT.OTN ---
Current Diagnoses Pain in right hip (07/15/19) Sacroiliitis, not elsewhere classified (07/15/19) Spinal stenosis, lumbar region without neurogenic claudication (07/15/19) Weakness (07/15/19) Physical Therapy Treatment Note PT-OP-A Visit Information Start: 06/10/19 12:29 Freq: Status: Active Protocol: Document 07/15/19 10:30 DCW (Rec: 07/15/19 12:09 DCW [id number]) Out-Patient Physical Therapy Visit Information Visit Information Visit Type Treatment Note Visit Start Time 10:30 Visit Stop Time 11:15 Total Visit Minutes 45 Visit Number 7 Number of TAPE LIBRARIAN Visits 0 Evaluation Information Evaluation Date 06/10/19 PT-OP-B Current Condition Start: 06/10/19 12:29 Freq: Status: Active Protocol: Document 06/10/19 09:45 DCW (Rec: 06/10/19 18:26 DCW [id number]) Current Condition History of Current Condition Onset Date one year Current Complaints Back pain and R leg pain/ weakness History of Current Condition Pt is a 78 year old female presenting with a one year history of low back and leg pain R>L, complete with occasional weakness. Pt reports that it feels like something slips out around L4, L5, and goes down my leg, mostly the right, sometimes bilaterally, and my right leg just gets really weak, and I can't go up stairs with it. I will go to the chiropractor, and he'll get me back in place , and it lasts about a day. I' ll go to a massage therapist, and she'll really work on soft tissue, and I'll feel better, but it still only lasts about one day. Pt also reports that if she lifts something, even carrying a half gallon of milk in from her car, she'll feel it in my SI. Prior Treatments and Tests 4 years s/p R anterior approach PATTI PT-OP-C Subjective Start: 06/10/19 12:29 Freq: Status: Active Protocol: Document 07/15/19 10:30 DCW (Rec: 07/15/19 12:09 DCW [id number]) OP-PT Subjective Patient Comments Patient Comments Pt feeling so much better, like a night and day difference. PT-OP-F Manual Assessment Start: 06/10/19 12:29 Freq: Status: Active Protocol: Document 06/10/19 09:45 DCW (Rec: 06/10/19 18:26 [facility] [id number]) Manual Assessments Soft Tissue Assessment Soft Tissue Mobility Assessment Severe tone and tenderness to palpation 3/4 - pain with wincing along right QL, right piriformis, right ITB Mild tone and tenderness to palpation 1/4 - complaint of pain along left QL and Piriformis PT-OP-K Range of Motion Start: 06/10/19 12:29 Freq: Status: Active Protocol: Document 06/10/19 09:45 DCW (Rec: 06/10/19 18:26 DC [id number]) Lumbar Spine Range of Motion Lumbar Spine Active Degrees Testing Position Standing Flexion 53 Extension 25 Lateral Flexion Left 45 Lateral Flexion Right 41 ROM Limitations Muscle Tone,Pain Comments Lateral flexion measured in cm from floor to finger tips PT-OP-L Special Tests Start: 06/10/19 12:29 Freq: Status: Active Protocol: Document 06/10/19 09:45 DCW (Rec: 06/10/19 18:26 [facility] [id number]) Special Tests Lumbar Spine Special Tests Straight Leg Raise Test Results HS tightness Comments R=50?, L=65? Slump Test Results Negative A-P Shearing Test Results R SI pain Compression Test Results Negative Hip Special Tests Nona's Test Test Results B positive Piriformis Test Results R positive IFEOMA Test Results R posterior hip pain PT-OP-M Strength Start: 06/10/19 12:29 Freq: Status: Active Protocol: Document 06/10/19 09:45 DCW (Rec: 06/10/19 18:26 [facility] [id number]) Hip Strength Hip Manual Muscle Testing Right Flexion (L2) 4 Good Abduction 4 Good Adduction 4+ Good+ External Rotation 4 Good Internal Rotation 3- Fair- Left Flexion (L2) 4+ Good+ Abduction 4+ Good+ Adduction 4+ Good+ External Rotation 4+ Good+ Internal Rotation 4+ Good+ Knee Strength Knee Manual Muscle Testing Right Flexion (S2) 4+ Good+ Extension (L3) 4+ Good+ Left Flexion (S2) 4+ Good+ Extension (L3) 4+ Good+ PT-OP-Q Treatments Start: 06/10/19 12:29 Freq: Status: Active Protocol: Document 07/15/19 10:30 DCW (Rec: 07/15/19 12:09 DCW [id number]) Cardio Equipment Recumbent Bicycle Duration (Minutes) 5 Resistance 3 Seat Position 4 Gym Equipment Shuttle Recovery Unilateral Squats Resistance 50# Shuttle Recovery Platform Stable Bilateral Squats Resistance 87# Shuttle Recovery Platform Stable Therapeutic Exercises Standing Exercises Resisted hip rotation Standing Exercise Name Knee on stool, rotate ER/IR vs resistance Side right Resistance Lv 2 Equipment Used T-band Other Exercises Resisted Ambulation Other Exercise Name Resisted side-stepping Resistance Green Equipment Used T-band Manual Therapy Treatment Soft Tissue Mobilization QL Body Location R QL Mobilization Type Sustained Pressure,Trigger Point Release Intensity/Depth Moderate Piriformis Body Location R Piriformis Mobilization Type Strumming,Sustained Pressure Intensity/Depth Deep Psoas Body Location R Psoas Mobilization Type Strumming,Sustained Pressure Intensity/Depth Deep Manual Techniques Pelvic rotation Type Resisted R flexion/L extension Comments anteriorly rotated innominate PT-OP-T Assessment and Plan Start: 06/10/19 12:29 Freq: Status: Active Protocol: Document 07/15/19 10:30 DCW (Rec: 07/15/19 12:09 DCW [id number]) Physical Therapy Assessment Impairments Impairments Activity Tolerance,Pain,ROM, Soft Tissue Mobility,Strength, Tone Other Impairments history of R anterior-approach PATTI Goals Four Impairment Pt exhibits a 3-/5 MMT of her right hip internal rotators Clinical Data Management Director Goal (LTG) Pt to present with a gross LE MMT of 4+/5 LTG Duration 08/09/19 Three Impairment Pt experiences increased pain when carrying a half gallon of milk Clinical Data Management Director Goal (LTG) Pt to tolerate lifting ten pounds with no increased back or hip pain to improve her ability to carry groceries in from her car. LTG Duration 08/09/19 Two Impairment Pt unable to ascend and descend stairs with a step- over gait pattern Assisted Goal (LTG) Pt to utilize a [id number] gait pattern 100% of the time when ascending or descending stairs LTG Duration 08/09/19 One Impairment Pt does not have an appropriate home exercise program Short Term Goal (STG) Pt to be independent and compliant with an appropriate HEP STG Duration 07/11/19 Assessment Summary Assessment Pt showing substantial improvement today. Significantly improved pain. Pt was previously unable to perform reverse clamshell due to IR weakness, but is now doing them with minimal difficulty. Physical Therapy Plan Frequency and Duration Frequency of Treatment 2x/Week Duration of Treatment 12 weeks Plan of Care Start Date 06/10/19 Plan of Care End Date 09/02/19 Therapeutic Interventions Therapeutic Interventions Gait Training,Home Exercise Program,Joint Mobilizations, Manual Therapy,Neuromuscular Re-education,Patient/Caregiver Education,Self-Care/Home Management,Soft Tissue Mobilization,Therapeutic Exercises Modalities Cold Pack/Ice Massage,Electric Stimulation,Hot Packs, Ultrasound Next Visit Focus/Plan Next Note Type Treatment Note Next Visit Plan Assess pt's retention of hip rotation
--- NOTE | 2019-07-20 15:16 | PT.OTN ---
Current Diagnoses Pain in right hip (07/20/19) Sacroiliitis, not elsewhere classified (07/20/19) Spinal stenosis, lumbar region without neurogenic claudication (07/20/19) Weakness (07/20/19) Physical Therapy Treatment Note PT-OP-A Visit Information Start: 06/10/19 12:29 Freq: Status: Active Protocol: Document 07/20/19 14:30 DCW (Rec: 07/20/19 15:16 DCW [id number]) Out-Patient Physical Therapy Visit Information Visit Information Visit Type Treatment Note Visit Start Time 14:30 Visit Stop Time 15:15 Total Visit Minutes 45 Visit Number 8 Number of FRUIT WASHER Visits 0 Evaluation Information Evaluation Date 06/10/19 PT-OP-B Current Condition Start: 06/10/19 12:29 Freq: Status: Active Protocol: Document 06/10/19 09:45 DCW (Rec: 06/10/19 18:26 DCW [id number]) Current Condition History of Current Condition Onset Date one year Current Complaints Back pain and R leg pain/ weakness History of Current Condition Pt is a 78 year old female presenting with a one year history of low back and leg pain R>L, complete with occasional weakness. Pt reports that it feels like something slips out around L4, L5, and goes down my leg, mostly the right, sometimes bilaterally, and my right leg just gets really weak, and I can't go up stairs with it. I will go to the chiropractor, and he'll get me back in place , and it lasts about a day. I' ll go to a massage therapist, and she'll really work on soft tissue, and I'll feel better, but it still only lasts about one day. Pt also reports that if she lifts something, even carrying a half gallon of milk in from her car, she'll feel it in my SI. Prior Treatments and Tests 4 years s/p R anterior approach PATTI PT-OP-C Subjective Start: 06/10/19 12:29 Freq: Status: Active Protocol: Document 07/20/19 14:30 DCW (Rec: 07/20/19 15:16 DCW [id number]) OP-PT Subjective Patient Comments Patient Comments Pt reports she was having some increased pain in her hip last night, potentially after moving a suitcase incorrectly, but she is feeling much better this afternoon. PT-OP-F Manual Assessment Start: 06/10/19 12:29 Freq: Status: Active Protocol: Document 06/10/19 09:45 DCW (Rec: 06/10/19 18:26 DCW [id number]) Manual Assessments Soft Tissue Assessment Soft Tissue Mobility Assessment Severe tone and tenderness to palpation 3/4 - pain with wincing along right QL, right piriformis, right ITB Mild tone and tenderness to palpation 1/4 - complaint of pain along left QL and Piriformis PT-OP-K Range of Motion Start: 06/10/19 12:29 Freq: Status: Active Protocol: Document 06/10/19 09:45 DCW (Rec: 06/10/19 18:26 DCW [id number]) Lumbar Spine Range of Motion Lumbar Spine Active Degrees Testing Position Standing Flexion 53 Extension 25 Lateral Flexion Left 45 Lateral Flexion Right 41 ROM Limitations Muscle Tone,Pain Comments Lateral flexion measured in cm from floor to finger tips PT-OP-L Special Tests Start: 06/10/19 12:29 Freq: Status: Active Protocol: Document 06/10/19 09:45 DCW (Rec: 06/10/19 18:26 DCW [id number]) Special Tests Lumbar Spine Special Tests Straight Leg Raise Test Results HS tightness Comments R=50?, L=65? Slump Test Results Negative A-P Shearing Test Results R SI pain Compression Test Results Negative Hip Special Tests Nona's Test Test Results B positive Piriformis Test Results R positive IFEOMA Test Results R posterior hip pain PT-OP-M Strength Start: 06/10/19 12:29 Freq: Status: Active Protocol: Document 06/10/19 09:45 DCW (Rec: 06/10/19 18:26 DCW [id number]) Hip Strength Hip Manual Muscle Testing Right Flexion (L2) 4 Good Abduction 4 Good Adduction 4+ Good+ External Rotation 4 Good Internal Rotation 3- Fair- Left Flexion (L2) 4+ Good+ Abduction 4+ Good+ Adduction 4+ Good+ External Rotation 4+ Good+ Internal Rotation 4+ Good+ Knee Strength Knee Manual Muscle Testing Right Flexion (S2) 4+ Good+ Extension (L3) 4+ Good+ Left Flexion (S2) 4+ Good+ Extension (L3) 4+ Good+ PT-OP-Q Treatments Start: 06/10/19 12:29 Freq: Status: Active Protocol: Document 07/20/19 14:30 DCW (Rec: 07/20/19 15:16 DCW [id number]) Cardio Equipment Recumbent Bicycle Duration (Minutes) 6 Resistance 3 Seat Position 4 Gym Equipment Shuttle Recovery Unilateral Squats Resistance 50# Shuttle Recovery Platform Stable Bilateral Squats Resistance 87# Shuttle Recovery Platform Stable Therapeutic Exercises Supine Exercises Piriformis Stretch Supine Exercise Name Atjc-[id number] chest Side right Standing Exercises Resisted hip rotation Standing Exercise Name Knee on stool, rotate ER/IR vs resistance Side right Resistance Lv 2 Equipment Used T-band Other Exercises Resisted Ambulation Other Exercise Name Resisted side-stepping Resistance Green Equipment Used T-band Manual Therapy Treatment Soft Tissue Mobilization QL Body Location R QL Mobilization Type Sustained Pressure,Trigger Point Release Intensity/Depth Moderate Multifidi Body Location R Lumbar Multifidi Mobilization Type Sustained Pressure,Trigger Point Release Intensity/Depth Moderate Piriformis Body Location R Piriformis Mobilization Type Strumming,Sustained Pressure Intensity/Depth Deep Psoas Body Location R Psoas Mobilization Type Strumming,Sustained Pressure Intensity/Depth Deep Manual Traction Lower Extremity Details Long-axis R LE Body Position Supine PT-OP-T Assessment and Plan Start: 06/10/19 12:29 Freq: Status: Active Protocol: Document 07/20/19 14:30 DCW (Rec: 07/20/19 15:16 DCW [id number]) Physical Therapy Assessment Impairments Impairments Activity Tolerance,Pain,ROM, Soft Tissue Mobility,Strength, Tone Other Impairments history of R anterior-approach PATTI Goals Four Impairment Pt exhibits a 3-/5 MMT of her right hip internal rotators Marketing Agent Goal (LTG) Pt to present with a gross LE MMT of 4+/5 LTG Duration 08/09/19 Three Impairment Pt experiences increased pain when carrying a half gallon of milk [facility] Goal (LTG) Pt to tolerate lifting ten pounds with no increased back or hip pain to improve her ability to carry groceries in from her car. LTG Duration 08/09/19 Two Impairment Pt unable to ascend and descend stairs with a step- over gait pattern [facility] Goal (LTG) Pt to utilize a [id number]-dmej-qycn gait pattern 100% of the time when ascending or descending stairs LTG Duration 3/8/20 One Impairment Pt does not have an appropriate home exercise program Short Term Goal (STG) Pt to be independent and compliant with an appropriate HEP STG Duration 07/11/19 Assessment Summary Assessment Pt continues to improve, having improved mobility and decreased complaints of pain. Pt should continue to perform HEP strengthening and stretching. Physical Therapy Plan Frequency and Duration Frequency of Treatment 2x/Week Duration of Treatment 12 weeks Plan of Care Start Date 06/10/19 Plan of Care End Date 09/02/19 Therapeutic Interventions Therapeutic Interventions Gait Training,Home Exercise Program,Joint Mobilizations, Manual Therapy,Neuromuscular Re-education,Patient/Caregiver Education,Self-Care/Home Management,Soft Tissue Mobilization,Therapeutic Exercises Modalities Cold Pack/Ice Massage,Electric Stimulation,Hot Packs, Ultrasound Next Visit Focus/Plan Next Note Type Treatment Note Next Visit Plan Assess pt's retention of hip rotation
--- NOTE | 2019-07-22 16:04 | PT.OTN ---
Current Diagnoses Pain in right hip (07/22/19) Sacroiliitis, not elsewhere classified (07/22/19) Spinal stenosis, lumbar region without neurogenic claudication (07/22/19) Weakness (07/22/19) Physical Therapy Treatment Note PT-OP-A Visit Information Start: 06/10/19 12:29 Freq: Status: Active Protocol: Document 07/22/19 15:15 DCW (Rec: 07/22/19 16:04 DCW [id number]) Out-Patient Physical Therapy Visit Information Visit Information Visit Type Treatment Note Visit Start Time 15:15 Visit Stop Time 16:00 Total Visit Minutes 45 Visit Number 9 Number of CLOTH EXAMINER Visits 0 Evaluation Information Evaluation Date 06/10/19 PT-OP-B Current Condition Start: 06/10/19 12:29 Freq: Status: Active Protocol: Document 06/10/19 09:45 DCW (Rec: 06/10/19 18:26 DCW [id number]) Current Condition History of Current Condition Onset Date one year Current Complaints Back pain and R leg pain/ weakness History of Current Condition Pt is a 78 year old female presenting with a one year history of low back and leg pain R>L, complete with occasional weakness. Pt reports that it feels like something slips out around L4, L5, and goes down my leg, mostly the right, sometimes bilaterally, and my right leg just gets really weak, and I can't go up stairs with it. I will go to the chiropractor, and he'll get me back in place , and it lasts about a day. I' ll go to a massage therapist, and she'll really work on soft tissue, and I'll feel better, but it still only lasts about one day. Pt also reports that if she lifts something, even carrying a half gallon of milk in from her car, she'll feel it in my SI. Prior Treatments and Tests 4 years s/p R anterior approach PATTI PT-OP-C Subjective Start: 06/10/19 12:29 Freq: Status: Active Protocol: Document 07/22/19 15:15 DCW (Rec: 07/22/19 16:04 DCW [id number]) OP-PT Subjective Patient Comments Patient Comments Pt reports her hip feels better today, but she has been having some issues with her left foot hurting whenever she puts on a different pair of shoes, until she has time to adjust. PT-OP-F Manual Assessment Start: 06/10/19 12:29 Freq: Status: Active Protocol: Document 06/10/19 09:45 DCW (Rec: 06/10/19 18:26 DCW [id number]) Manual Assessments Soft Tissue Assessment Soft Tissue Mobility Assessment Severe tone and tenderness to palpation 3/4 - pain with wincing along right QL, right piriformis, right ITB Mild tone and tenderness to palpation 1/4 - complaint of pain along left QL and Piriformis PT-OP-K Range of Motion Start: 06/10/19 12:29 Freq: Status: Active Protocol: Document 06/10/19 09:45 DCW (Rec: 06/10/19 18:26 DCW [id number]) Lumbar Spine Range of Motion Lumbar Spine Active Degrees Testing Position Standing Flexion 53 Extension 25 Lateral Flexion Left 45 Lateral Flexion Right 41 ROM Limitations Muscle Tone,Pain Comments Lateral flexion measured in cm from floor to finger tips PT-OP-L Special Tests Start: 06/10/19 12:29 Freq: Status: Active Protocol: Document 06/10/19 09:45 DCW (Rec: 06/10/19 18:26 DCW [id number]) Special Tests Lumbar Spine Special Tests Straight Leg Raise Test Results HS tightness Comments R=50?, L=65? Slump Test Results Negative A-P Shearing Test Results R SI pain Compression Test Results Negative Hip Special Tests Nona's Test Test Results B positive Piriformis Test Results R positive IFEOMA Test Results R posterior hip pain PT-OP-M Strength Start: 06/10/19 12:29 Freq: Status: Active Protocol: Document 06/10/19 09:45 DCW (Rec: 06/10/19 18:26 DCW [id number]) Hip Strength Hip Manual Muscle Testing Right Flexion (L2) 4 Good Abduction 4 Good Adduction 4+ Good+ External Rotation 4 Good Internal Rotation 3- Fair- Left Flexion (L2) 4+ Good+ Abduction 4+ Good+ Adduction 4+ Good+ External Rotation 4+ Good+ Internal Rotation 4+ Good+ Knee Strength Knee Manual Muscle Testing Right Flexion (S2) 4+ Good+ Extension (L3) 4+ Good+ Left Flexion (S2) 4+ Good+ Extension (L3) 4+ Good+ PT-OP-Q Treatments Start: 06/10/19 12:29 Freq: Status: Active Protocol: Document 07/22/19 15:15 DCW (Rec: 07/22/19 16:04 DCW [id number]) Cardio Equipment Recumbent Bicycle Duration (Minutes) 6 Resistance 3 Seat Position 4 Gym Equipment Shuttle Recovery Unilateral Squats Resistance 50# Shuttle Recovery Platform Stable Bilateral Squats Resistance 87# Shuttle Recovery Platform Stable Therapeutic Exercises Supine Exercises Hamstring Stretch Supine Exercise Name HS stretch Side bilateral Comments Manual Standing Exercises Lunges Standing Exercise Name Lunge onto BOSU Resisted hip rotation Standing Exercise Name Knee on stool, rotate ER/IR vs resistance Side right Resistance Lv 2 Equipment Used T-band Manual Therapy Treatment Soft Tissue Mobilization QL Body Location R QL Mobilization Type Sustained Pressure,Trigger Point Release Intensity/Depth Moderate Multifidi Body Location R Lumbar Multifidi Mobilization Type Sustained Pressure,Trigger Point Release Intensity/Depth Moderate Piriformis Body Location R Piriformis Mobilization Type Strumming,Sustained Pressure Intensity/Depth Deep Psoas Body Location R Psoas Mobilization Type Strumming,Sustained Pressure Intensity/Depth Deep Manual Traction Lower Extremity Details Long-axis R LE Body Position Supine PT-OP-T Assessment and Plan Start: 06/10/19 12:29 Freq: Status: Active Protocol: Document 07/22/19 15:15 DCW (Rec: 07/22/19 16:04 DCW [id number]) Physical Therapy Assessment Impairments Impairments Activity Tolerance,Pain,ROM, Soft Tissue Mobility,Strength, Tone Other Impairments history of R anterior-approach PATTI Goals Four Impairment Pt exhibits a 3-/5 MMT of her right hip internal rotators Telecommunications Field Engineer Goal (LTG) Pt to present with a gross LE MMT of 4+/5 LTG Duration 08/09/19 Three Impairment Pt experiences increased pain when carrying a half gallon of milk Telecommunications Field Engineer Goal (LTG) Pt to tolerate lifting ten pounds with no increased back or hip pain to improve her ability to carry groceries in from her car. LTG Duration 08/09/19 Two Impairment Pt unable to ascend and descend stairs with a step- over gait pattern Prison Goal (LTG) Pt to utilize a [id number] gait pattern 100% of the time when ascending or descending stairs LTG Duration 08/09/19 One Impairment Pt does not have an appropriate home exercise program Short Term Goal (STG) Pt to be independent and compliant with an appropriate HEP STG Duration 07/11/19 Assessment Summary Assessment Pt doing well, experiencing less overall pain. LE strength improving, particularly R hip IR. Physical Therapy Plan Frequency and Duration Frequency of Treatment 2x/Week Duration of Treatment 12 weeks Plan of Care Start Date 06/10/19 Plan of Care End Date 09/02/19 Therapeutic Interventions Therapeutic Interventions Gait Training,Home Exercise Program,Joint Mobilizations, Manual Therapy,Neuromuscular Re-education,Patient/Caregiver Education,Self-Care/Home Management,Soft Tissue Mobilization,Therapeutic Exercises Modalities Cold Pack/Ice Massage,Electric Stimulation,Hot Packs, Ultrasound Next Visit Focus/Plan Next Note Type Treatment Note Next Visit Plan Assess pt's retention of hip rotation
--- NOTE | 2019-08-10 16:00 | PT.OTN ---
Current Diagnoses Pain in right hip (08/10/19) Sacroiliitis, not elsewhere classified (08/10/19) Spinal stenosis, lumbar region without neurogenic claudication (08/10/19) Weakness (08/10/19) Physical Therapy Treatment Note PT-OP-A Visit Information Start: 06/10/19 12:29 Freq: Status: Active Protocol: Document 08/10/19 15:15 DCW (Rec: 08/10/19 15:59 DCW [id number]) Out-Patient Physical Therapy Visit Information Visit Information Visit Type Treatment Note Visit Start Time 15:15 Visit Stop Time 16:00 Total Visit Minutes 45 Visit Number 11 Number of GREASE RENDERER Visits 0 Evaluation Information Evaluation Date 06/10/19 PT-OP-B Current Condition Start: 06/10/19 12:29 Freq: Status: Active Protocol: Document 06/10/19 09:45 DCW (Rec: 06/10/19 18:26 DCW [id number]) Current Condition History of Current Condition Onset Date one year Current Complaints Back pain and R leg pain/ weakness History of Current Condition Pt is a 78 year old female presenting with a one year history of low back and leg pain R>L, complete with occasional weakness. Pt reports that it feels like something slips out around L4, L5, and goes down my leg, mostly the right, sometimes bilaterally, and my right leg just gets really weak, and I can't go up stairs with it. I will go to the chiropractor, and he'll get me back in place , and it lasts about a day. I' ll go to a massage therapist, and she'll really work on soft tissue, and I'll feel better, but it still only lasts about one day. Pt also reports that if she lifts something, even carrying a half gallon of milk in from her car, she'll feel it in my SI. Prior Treatments and Tests 4 years s/p R anterior approach PATTI PT-OP-C Subjective Start: 06/10/19 12:29 Freq: Status: Active Protocol: Document 08/10/19 15:15 DCW (Rec: 08/10/19 15:59 DCW [id number]) OP-PT Subjective Patient Comments Patient Comments I'm walking better. Pt notes she brought in a lot of groceries today, which typically causes some pain, but she has been fine. PT-OP-F Manual Assessment Start: 06/10/19 12:29 Freq: Status: Active Protocol: Document 06/10/19 09:45 DCW (Rec: 06/10/19 18:26 DCW [id number]) Manual Assessments Soft Tissue Assessment Soft Tissue Mobility Assessment Severe tone and tenderness to palpation 3/4 - pain with wincing along right QL, right piriformis, right ITB Mild tone and tenderness to palpation 1/4 - complaint of pain along left QL and Piriformis PT-OP-K Range of Motion Start: 06/10/19 12:29 Freq: Status: Active Protocol: Document 06/10/19 09:45 DCW (Rec: 06/10/19 18:26 DCW [id number]) Lumbar Spine Range of Motion Lumbar Spine Active Degrees Testing Position Standing Flexion 53 Extension 25 Lateral Flexion Left 45 Lateral Flexion Right 41 ROM Limitations Muscle Tone,Pain Comments Lateral flexion measured in cm from floor to finger tips PT-OP-L Special Tests Start: 06/10/19 12:29 Freq: Status: Active Protocol: Document 06/10/19 09:45 DCW (Rec: 06/10/19 18:26 DCW [id number]) Special Tests Lumbar Spine Special Tests Straight Leg Raise Test Results HS tightness Comments R=50?, L=65? Slump Test Results Negative A-P Shearing Test Results R SI pain Compression Test Results Negative Hip Special Tests Nona's Test Test Results B positive Piriformis Test Results R positive IFEOMA Test Results R posterior hip pain PT-OP-M Strength Start: 06/10/19 12:29 Freq: Status: Active Protocol: Document 06/10/19 09:45 DCW (Rec: 06/10/19 18:26 DCW [id number]) Hip Strength Hip Manual Muscle Testing Right Flexion (L2) 4 Good Abduction 4 Good Adduction 4+ Good+ External Rotation 4 Good Internal Rotation 3- Fair- Left Flexion (L2) 4+ Good+ Abduction 4+ Good+ Adduction 4+ Good+ External Rotation 4+ Good+ Internal Rotation 4+ Good+ Knee Strength Knee Manual Muscle Testing Right Flexion (S2) 4+ Good+ Extension (L3) 4+ Good+ Left Flexion (S2) 4+ Good+ Extension (L3) 4+ Good+ PT-OP-Q Treatments Start: 06/10/19 12:29 Freq: Status: Active Protocol: Document 08/10/19 15:15 DCW (Rec: 08/10/19 15:59 DCW [id number]) Cardio Equipment Recumbent Bicycle Duration (Minutes) 6 Resistance 5 Seat Position 4 Gym Equipment Shuttle Recovery Unilateral Squats Resistance 50# Shuttle Recovery Platform Stable Bilateral Squats Resistance 100# Shuttle Recovery Platform Stable Therapeutic Exercises Supine Exercises Piriformis Stretch Supine Exercise Name Dhim-fn-ukgbnbds chest Side right Sidelying Exercises Reverse Clams Sidelying Exercise Name Reverse Clamshells Clams Sidelying Exercise Name Clamshells Standing Exercises Resisted hip rotation Standing Exercise Name Knee on stool, rotate ER/IR vs resistance Side right Resistance Lv 2 Equipment Used T-band Other Exercises Resisted Ambulation Other Exercise Name Resisted side-stepping Resistance Green Equipment Used T-band Manual Therapy Treatment Soft Tissue Mobilization QL Body Location R QL Mobilization Type Sustained Pressure,Trigger Point Release Intensity/Depth Moderate Multifidi Body Location R Lumbar Multifidi Mobilization Type Sustained Pressure,Trigger Point Release Intensity/Depth Moderate Piriformis Body Location R Piriformis Mobilization Type Strumming,Sustained Pressure Intensity/Depth Deep Psoas Body Location B Psoas Mobilization Type Strumming,Sustained Pressure Intensity/Depth Deep Manual Traction Lower Extremity Details Long-axis R LE Body Position Supine PT-OP-T Assessment and Plan Start: 06/10/19 12:29 Freq: Status: Active Protocol: Document 08/10/19 15:15 DCW (Rec: 08/10/19 15:59 DCW [id number]) Physical Therapy Assessment Impairments Impairments Activity Tolerance,Pain,ROM, Soft Tissue Mobility,Strength, Tone Other Impairments history of R anterior-approach PATTI Goals Four Impairment Pt exhibits a 3-/5 MMT of her right hip internal rotators Care Home Goal (LTG) Pt to present with a gross LE MMT of 4+/5 LTG Duration 08/09/19 Three Impairment Pt experiences increased pain when carrying a half gallon of milk Care Home Goal (LTG) Pt to tolerate lifting ten pounds with no increased back or hip pain to improve her ability to carry groceries in from her car. LTG Duration 08/09/19 Two Impairment Pt unable to ascend and descend stairs with a step- over gait pattern Clinical Material Handler Goal (LTG) Pt to utilize a fffh-whoc-hjic gait pattern 100% of the time when ascending or descending stairs LTG Duration 08/09/19 One Impairment Pt does not have an appropriate home exercise program Short Term Goal (STG) Pt to be independent and compliant with an appropriate HEP STG Duration 07/11/19 Assessment Summary Assessment Pt continues to display improved R hip IR strength, however pt does still complain of increased pain/strain when performing most IR or abduction actions. Physical Therapy Plan Frequency and Duration Frequency of Treatment 2x/Week Duration of Treatment 12 weeks Plan of Care Start Date 06/10/19 Plan of Care End Date 09/02/19 Therapeutic Interventions Therapeutic Interventions Gait Training,Home Exercise Program,Joint Mobilizations, Manual Therapy,Neuromuscular Re-education,Patient/Caregiver Education,Self-Care/Home Management,Soft Tissue Mobilization,Therapeutic Exercises Modalities Cold Pack/Ice Massage,Electric Stimulation,Hot Packs, Ultrasound Next Visit Focus/Plan Next Note Type Treatment Note Next Visit Plan Assess pt's retention of hip rotation
--- NOTE | 2019-08-24 14:11 | PT.OPDS ---
Current Diagnoses Pain in right hip (08/10/19) Sacroiliitis, not elsewhere classified (08/10/19) Spinal stenosis, lumbar region without neurogenic claudication (08/10/19) Weakness (08/10/19) Visit Care Team Role Provider Type CARL Santana Primary Care Provider Advanced Guidance Secretary Specialty: Family Practice Address: [address] [place] [address], [facility] [place], [address] Email: [email or web address] Jayy Zelaya MD Attending Provider Non-Staff Specialty: Orthopedics Address: [address] [place] [address], [id number] Email: Visit Number Visit Number 11 Discharge Summary PT-OP-B Current Condition Start: 06/10/19 12:29 Freq: Status: Active Protocol: Document 06/10/19 09:45 DCW (Rec: 06/10/19 18:26 DCW [id number]) Current Condition History of Current Condition Onset Date one year Current Complaints Back pain and R leg pain/ weakness History of Current Condition Pt is a 78 year old female presenting with a one year history of low back and leg pain R>L, complete with occasional weakness. Pt reports that it feels like something slips out around L4, L5, and goes down my leg, mostly the right, sometimes bilaterally, and my right leg just gets really weak, and I can't go up stairs with it. I will go to the chiropractor, and he'll get me back in place , and it lasts about a day. I' ll go to a massage therapist, and she'll really work on soft tissue, and I'll feel better, but it still only lasts about one day. Pt also reports that if she lifts something, even carrying a half gallon of milk in from her car, she'll feel it in my SI. Prior Treatments and Tests 4 years s/p R anterior approach PATTI PT-OP-C Subjective Start: 06/10/19 12:29 Freq: Status: Active Protocol: Document 08/10/19 15:15 DCW (Rec: 03/09/20 15:59 DCW [id number]) OP-PT Subjective Patient Comments Patient Comments I'm walking better. Pt notes she brought in a lot of groceries today, which typically causes some pain, but she has been fine. PT-OP-F Manual Assessment Start: 06/10/19 12:29 Freq: Status: Active Protocol: Document 06/10/19 09:45 DCW (Rec: 06/10/19 18:26 DCW [id number]) Manual Assessments Soft Tissue Assessment Soft Tissue Mobility Assessment Severe tone and tenderness to palpation 3/4 - pain with wincing along right QL, right piriformis, right ITB Mild tone and tenderness to palpation 1/4 - complaint of pain along left QL and Piriformis PT-OP-K Range of Motion Start: 06/10/19 12:29 Freq: Status: Active Protocol: Document 06/10/19 09:45 DCW (Rec: 06/10/19 18:26 DCW [id number]) Lumbar Spine Range of Motion Lumbar Spine Active Degrees Testing Position Standing Flexion 53 Extension 25 Lateral Flexion Left 45 Lateral Flexion Right 41 ROM Limitations Muscle Tone,Pain Comments Lateral flexion measured in cm from floor to finger tips PT-OP-L Special Tests Start: 06/10/19 12:29 Freq: Status: Active Protocol: Document 06/10/19 09:45 DCW (Rec: 06/10/19 18:26 DCW [id number]) Special Tests Lumbar Spine Special Tests Straight Leg Raise Test Results HS tightness Comments R=50?, L=65? Slump Test Results Negative A-P Shearing Test Results R SI pain Compression Test Results Negative Hip Special Tests Nona's Test Test Results B positive Piriformis Test Results R positive IFEOMA Test Results R posterior hip pain PT-OP-M Strength Start: 06/10/19 12:29 Freq: Status: Active Protocol: Document 06/10/19 09:45 DCW (Rec: 06/10/19 18:26 DCW [id number]) Hip Strength Hip Manual Muscle Testing Right Flexion (L2) 4 Good Abduction 4 Good Adduction 4+ Good+ External Rotation 4 Good Internal Rotation 3- Fair- Left Flexion (L2) 4+ Good+ Abduction 4+ Good+ Adduction 4+ Good+ External Rotation 4+ Good+ Internal Rotation 4+ Good+ Knee Strength Knee Manual Muscle Testing Right Flexion (S2) 4+ Good+ Extension (L3) 4+ Good+ Left Flexion (S2) 4+ Good+ Extension (L3) 4+ Good+ PT-OP-T Assessment and Plan Start: 06/10/19 12:29 Freq: Status: Active Protocol: Document 08/24/19 14:08 DCW (Rec: 08/24/19 14:11 DCW [id number]) Physical Therapy Assessment Goals Four Impairment Pt exhibits a 3-/5 MMT of her right hip internal rotators Half-Way Goal (LTG) Pt to present with a gross LE MMT of 4+/5 LTG Duration 08/09/19 Three Impairment Pt experiences increased pain when carrying a half gallon of milk Business Technology Teacher Goal (LTG) Pt to tolerate lifting ten pounds with no increased back or hip pain to improve her ability to carry groceries in from her car. LTG Duration Met Two Impairment Pt unable to ascend and descend stairs with a step- over gait pattern Half-Way Goal (LTG) Pt to utilize a jqhq-oqim-qvde gait pattern 100% of the time when ascending or descending stairs LTG Duration Met One Impairment Pt does not have an appropriate home exercise program Short Term Goal (STG) Pt to be independent and compliant with an appropriate HEP STG Duration Met Progress Towards Goals Progress Towards Goals Progressing Toward Goals Assessment Summary Assessment Therapist spoke with pt on the phone today. Pt reports that she as had a cold, and didn't want to come in and spread it around, and also that she recently had an EKG, which showed that she has an enlarged L atrium. Pt reports that she has since been walking 2+ miles daily, and not having any pain. Since she is feeling better, and she is too concerned to come to PT with the ongoing COVID-19 outbreak, she would like to request discharge at this time . Physical Therapy Plan Discharge Physical Therapy Discharge Reasons Patient Request Next Visit Focus/Plan Next Note Type Discharge Summary
== END 2019-08-26 08:01 ==
LOC: PHYS 15:15
PROVIDERS: PCP Internal Medicine; Visit Provider Orthopaedic Surgery
DX: M25.551 Pain in right hip (principal); M48.061 Spinal stenosis, lumbar region without neurogenic claudication; R53.1 Weakness; M46.1 Sacroiliitis, not elsewhere classified
CPT/HCPCS: 97110; 97140; 97161

== ENCOUNTER → 2019-08-12 07:53 | Outpatient (CLI) | payer OTHER, MEDICARE, SELFPAY ==
--- NOTE | 2019-08-12 | DI.ECHO.S_ITS ---
[facility] +---------+ : : [address] : [place] : : : : [id number] : : : : Phone: [phone]+ Echocardiogram Report + + :Name: SHERRY QUESADA Study Date: 08/12/2019 Height: 63 in : :[facility] Exam Location: [facility] Weight: 135 lb : : Gender: Female BSA: 1.6 m2 : :: 1940 Age: 79 yrs BP: 159/90 mmHg: :Reason For Study: Palpitations : :Ordering Physician: Sabiha Carlos Performed By: Steffanie Page : + + Interpretation Summary The left ventricle is normal in size, wall thickness, and systolic function without any focal wall motion abnormalities with the ejection fraction visually estimated to be 60-65%. Diastolic parameters suggest probable normal left ventricular diastolic function and normal filling pressures. The right ventricle is normal in size and function. Pulmonary artery pressures cannot be estimated because of the lack of a measurable TR jet velocity but the IVC suggests a CVP of around 3 mmHg. The left atrium is severely dilated while the right atrium is moderately dilated. There is no significant valvular heart disease. The ascending aorta is mildly enlarged. Procedure: A two-dimensional transthoracic echocardiogram with color flow and Doppler was performed. The study quality was technically adequate. There is no prior echocardiogram noted for this patient. The patient was in normal sinus rhythm during the exam. Left Ventricle: The left ventricle is normal in size, wall thickness, and systolic function without any focal wall motion abnormalities. The ejection fraction is estimated to be 60-65%. Diastolic parameters suggest probable normal left ventricular diastolic function and normal filling pressures. Right Ventricle: The right ventricle is normal in size and function. Atria: The left atrium is severely dilated. The right atrium is moderately dilated. There is no Doppler evidence for an interatrial shunt. Mitral Valve: The mitral valve leaflets appear mildly thickened, but open well. There is trace mitral regurgitation. Aortic Valve: The aortic valve is trileaflet. There is discrete nodular thickening of the non- coronary cusp. The aortic valve opens well. No aortic regurgitation is present. Tricuspid Valve: The tricuspid valve is normal in structure and function. There is a trace or physiologic amount of tricuspid regurgitation. Pulmonary artery pressures cannot be estimated because of the lack of a measurable TR jet velocity but the IVC suggests a CVP of around 3 mmHg. Pulmonic Valve: The pulmonic valve is not well seen, but is grossly normal. There is a trace or physiologic amount of pulmonic regurgitation. There is no significant valvular heart disease. Great Vessels: The aortic root is normal size. The ascending aorta is mildly enlarged. The pulmonary artery is not well visualized, but is probably normal size. The IVC is of normal diameter and collapses greater than 50% with a sniff. This suggests a low right atrial pressure of 3 mm Hg. Pericardium/ Pleura There is no pericardial effusion. There is no pleural effusion. MMode/2D Measurements & Calculations LVIDd: 4.5 cm LVOT diam: 2.1 cm LVIDs: 3.2 cm Ao root diam: 3.4 cm FS: 28.1 % asc Aorta Diam: 3.6 cm EPSS: 0.63 cm IVSd: 0.70 cm LVPWd: 0.67 cm LV quintero. diameter/BSA (cm/m^2): 2.8 LV sys. diameter/BSA (cm/m^2): 2.0 LA A2 area: 26.8 cm2 RA long axis: 5.4 cm LA A4 area: 24.5 cm2 RA area: 20.1 cm2 LA length (vol): 5.4 cm RA vol: 63.4 ml LA vol: 103.9 ml RA : 38.8 ml/m2 LA vol index: 63.5 ml/m2 IVC diam: 1.8 cm RVD1 (basal): 3.5 cm RVD2 (mid): 3.2 cm TAPSE: 1.9 cm Doppler Measurements & Calculations Ao V2 max: 101.3 cm/sec LVOT Max Darine: 71.2 cm/sec Ao V2 mean: 63.2 cm/sec LV V1 max P.0 mmHg Ao max P.1 mmHg LV V1 VTI: 16.1 cm Ao mean P.8 mmHg ZACH(I,D): 2.4 cm2 Ao V2 VTI: 22.1 cm ZACH(V,D): 2.3 cm2 sev ratio: 0.73 ZACH indexed to BSA (cm^2/m^2): 1.5 MV E max darien: 59.1 cm/sec TR max darien: 180.1 cm/sec MV A max darien: 50.1 cm/sec TR max P.0 mmHg MV E/A: 1.2 PA V2 max: 65.9 cm/sec Med Peak E' Darien: 7.9 cm/sec PA V2 mean: 49.3 cm/sec E/E' med: 7.5 PA mean P.0 mmHg Lat Peak E' Darien: 9.6 cm/sec PA Accel Time: 0.08 sec E/E' lat: 6.2 E/e' average: 6.8 MV P1/2t: 67.6 msec MV 2t max darien: 59.1 cm/sec SV(LVOT): 53.4 ml MVA(2t): 3.3 cm2 Reading Physician:MARYANA
== END ==
PROVIDERS: Family Provider Family Medicine; PCP Internal Medicine; Referring Provider Internal Medicine; Visit Provider Internal Medicine
DX: R00.2 Palpitations (principal); I77.89 Other specified disorders of arteries and arterioles
CPT/HCPCS: 93306

== ENCOUNTER 2020-02-09 19:48 | Inpatient (IN) | payer OTHER, MEDICARE, SELFPAY ==
[2020-02-09 19:52] VITALS: BP 162/70; PULSE 92; RESP 15; TEMP 36.8; O2SAT 98; BMI 24.7
--- NOTE | 2020-02-09 20:51 | ED_ITS ---
HPI - Extremity Injury (Lower) General Chief Complaint: Extremity Injury, Lower Stated Complaint: rt knee went out on her Time Seen by Provider: 02/09/20 20:41 Source: patient Mode of arrival: Family Vehicle Limitations: no limitations History of Present Illness HPI Narrative: 79-year-old female former smoker without significant past medical history presents with a family friend in the chief complaint of inability to walk secondary to weakness in her right leg over the past day or 2. She denies any blurred vision, trouble with speech or other focal neurologic findings. She has been dealing with low back pain and states that she had been having increasing pain in her right lower back which was on helped by the Toradol injection. Now over the past day or 2 she has had increasing weakness as well as numbness and tingling. She denies any fever or chills. She denies any loss of control of bowel or bladder. She states that she has been having back pain off and on since a work related injury in the but things seem to have been triggered by an episode when she was bending over lifting up a heavy object a few days ago. Injury as a consequence of her fall Related Data Home Medications Medication Instructions Recorded Confirmed [id number] PO 11/07/17 04/15/19 cholecalciferol (vitamin D3) 50 2,000 unit PO DAILY 12/18/17 04/15/19 mcg (2,000 unit) tablet vitamin B complex 1 tab PO DAILY PRN 12/18/17 04/15/19 Tumeric 1 each PO .QDAY 12/19/17 04/15/19 Vitamin D3/K2 1 each PO .QDAY 12/19/17 04/15/19 Previous Rx's Medication Instructions Recorded conjugated estrogens [Premarin] 0.625 mg VAGINAL SEE INSTRUCTIONS 09/13/16 #1 trena methylprednisolone [Medrol (Mckay)] See Rx Instructions .ROUTE 02/09/20 .COMPLEX #21 each Allergies Allergy/AdvReac Type Severity Reaction Status Date / Time atropine [From ] AdvReac Intermediate SLOW TO Verified 04/15/19 08:21 METABOLIZE gluten [GLUTEN] AdvReac Intermediate JOINT PAIN Verified 04/15/19 08:21 hyoscyamine [From ] AdvReac Intermediate SLOW TO Verified 04/15/19 08:21 METABOLIZE latex [LATEX] AdvReac Intermediate SKIN Verified 04/15/19 08:21 IRRITATION phenobarbital [From ] AdvReac Intermediate SLOW TO Verified 04/15/19 08:21 METABOLIZE ranitidine [RANITIDINE] AdvReac Intermediate DEPRESSION, Verified 04/15/19 08:21 ITCHING Review of Systems Constitutional Constitutional: Denies chills, Denies fatigue, Denies fever(s), Denies frequent falls, Denies lethargy and Reports weakness Eyes Eyes: Denies change in vision, Denies eye discharge, Denies irritation and Denies loss of vision ENT Ears, Nose, Mouth, and Throat: Denies change in voice, Denies dizziness, Denies neck pain, Denies sore throat and Denies throat swelling Cardiovascular Cardiovascular: Denies chest pain, Denies irregular heart rhythm, Denies lightheadedness, Denies palpitations, Denies dyspnea, Denies dyspnea on exertion and Denies orthopnea Respiratory Respiratory: Denies cough, Denies dyspnea, Denies dyspnea on exertion and Denies wheezing Gastrointestinal Gastrointestinal: Denies abdominal pain, Denies change in bowel habits, Denies diarrhea, Denies nausea and Denies vomiting Musculoskeletal Musculoskeletal: Denies neck pain and Reports numbness Integumentary/Breasts Skin/Breast: Denies pruritus, Denies erythema, Denies rash and Denies wounds Neurologic Neurologic: Denies behavioral changes, Denies confusion, Denies dizziness, Denies frequent falls, Reports localized weakness, Denies loss of vision, Reports numbness and Reports weakness Psychiatric Psychiatric: Denies anxiety, Denies behavioral changes, Denies confusion, Denies depression, Denies homicidal ideation and Denies suicidal ideation Endocrine Endocrine: Denies fatigue, Denies flushing and Denies palpitations Hematologic/Lymphatic Hematologic/Lymphatic: Denies easy bruising Allergic/Immunologic Allergic/Immunologic: Denies urticaria, Denies throat swelling and Denies wheezing Patient History Medical History Abnormal Pap smear of cervix (Resolved ~1986) Bilateral tinnitus (Chronic Unknown) Cataracts, bilateral (Resolved 2014) Chickenpox (Resolved Unknown) Chronic back pain (Chronic 2006) Depression (Chronic Unknown) Fractures (Resolved 1999) GERD (gastroesophageal reflux disease) (Chronic ~2004) Hypercholesterolemia (Chronic ~2017) Measles (Resolved Unknown) Mumps (Resolved Unknown) Muscle spasm (Resolved 2011) Osteoarthritis (Chronic Unknown) Vertigo (Chronic 1981) Surgical History History of hip replacement History of total mastectomy Status post hysterectomy with oophorectomy Family History Family/Other Adopted Social History Smoking Status: Former smoker Smoking Status: Former smoker alcohol intake frequency: a few times a month Substance Use Type: does not use Exam Narrative Exam Narrative: GENERAL: [79] year old patient appears stated age. Well- nourished, well-developed patient, in mild distress. HEAD: Atraumatic. Normocephalic. EYES: Pupils equal round and reactive. Extraocular motions intact. No scleral icterus. No injection or drainage. ENT: Nose without bleeding, purulent drainage. Throat without erythema, tonsillar hypertrophy or exudate. Airway patent. NECK: Trachea midline. Non tender CARDIOVASCULAR: Regular rate and rhythm without murmurs, gallops, or rubs. RESPIRATORY: Clear to auscultation. Breath sounds equal bilaterally. No wheezes, rales, or rhonchi. GASTROINTESTINAL: Abdomen soft, non-tender, nondistended. EXTREMITIES: No edema or joint tenderness. BACK: Decreased sensation, reflex and strength of right lower extremity. No saddle anesthesia. NEURO: AOx3. SKIN: No rash or erythema of visible areas Initial Vital Signs Initial Vital Signs: Vital Signs Temperature 98.3 F 02/09/20 19:52 Pulse Rate 92 H 02/09/20 19:52 Respiratory Rate 15 02/09/20 19:52 Blood Pressure 162/70 H 02/09/20 19:52 Pulse Oximetry 98 02/09/20 19:52 Scores ABCD2 Citation: Lancet. 2006Jun 29;369(7974):283-92. Validation and refinement of scores to predict very early stroke risk after transient ischaemic attack. Jennifer HAZEL1, Brinda PM, Romaine MN, aDnk MF, Edvin JS, Sourav AL, Jarvis S. Course Course Course Narrative: Patient has evidence of lumbar radiculopathy resulting in a measurable weakness of the muscles of her lower extremity as well as reflexes. Other neurologic symptoms such as blurred vision, trouble with speech or balance are absent. We are unable to safely ambulate the patient and for that reason she must come into the hospital. I have been in contact with the orthopedist who is happy to admit her to his service, recommends NPO, steroids, MRI in the morning and he will evaluate. Orders Ordered: ED Orders 02/09/20 21:25 XR lumbar spine 2-3V Stat 02/09/20 21:55 COVID19 -ED/INPAT/OR/L&D Stat Discontinued Medications Dexamethasone (Decadron) 8 mg IV NOW ONE Stop: 02/09/20 21:43 Last Admin: 02/09/20 22:28 Dose: 8 mg Documented by: ALEXANDER Vital Signs Vital signs: Vital Signs - 8 hr 02/09/20 19:52 Temperature 98.3 F Pulse Rate 92 H Respiratory Rate 15 Blood Pressure 162/70 H Pulse Oximetry 98 Discharge Plan Departure Patient Disposition: Admitted As Inpatient Clinical Impression: Radiculopathy of lumbar region, Right leg weakness Admit Date/Time: 02/09/20 21:43 Admit Provider: Nunu Panchal
--- NOTE | 2020-02-09 21:25 | DI.RAD.S_ITS ---
PROCEDURE: XR LUMBAR SPINE 2-3V INDICATIONS: pain, right leg weakness TECHNIQUE: 3 views of the lumbar spine were acquired. COMPARISON: [facility], , L-SPINE 2-3 VIEWS, 05/16/2010, 10:09. FINDINGS: Bones: 5 [id number] vertebrae are present. There is there is grade 1 anterolisthesis of L4 on L5. Severe disc space narrowing is present at L5-S1 with moderate foraminal narrowing. Endplate deformities are present at L2 new since 2009. No vertebral body compression fractures. No suspicious bony lesions. Soft tissues: Overlying bowel gas pattern is normal. Significant colonic stool is present. No suspicious soft tissue calcifications. IMPRESSION: Degenerative changes most notable at L5-S1. Significant colonic stool consistent with constipation. Dictated by: Elinor Moser M.D. on 02/09/2020 at 21:39 Approved by: Elinor Moser M.D. on 02/09/2020 at 21:40
[2020-02-09 22:20] LABS: COVID19 -Nasal RAPID Negative (Negative)
[2020-02-09] MEDS: DEXAMETHASONE 10 MG/ML VIAL 8 MG IV (22:28)
[2020-02-09 22:44] VITALS: BP 155/67; PULSE 90; RESP 16; O2SAT 99
[2020-02-09 22:53] VITALS: BMI 24.7
--- NOTE | 2020-02-09 23:08 | DI.MRI.S_ITS ---
PROCEDURE: MR LUMBAR SPINE WO CON INDICATIONS: lumbar radiculopathy, right leg weakness TECHNIQUE: Noncontrast sagittal T1 spin echo and T2 fast echo, sagittal STIR, axial T1 and T2 fast spin echo through the lumbar spine. In cases with scoliosis, additional coronal T2 fast spin echo may be performed. COMPARISON: [facility], MR, L-SPINE WITHOUT CONTRAST, 01/13/2014, 8:21. [facility], CR, L-SPINE 2-3 VIEWS, 05/16/2010, 10:09. FINDINGS: Image quality: Excellent. Alignment and Curvature: 5 lumbar type vertebral bodies are present by plain film. There is mild, grade 1 anterolisthesis of L4 on L5. Mild grade 1 retrolisthesis of L5 on S1. Bone Marrow: Marrow is of normal overall signal. No acute vertebral body compression fractures. Mild reactive signal within the endplates adjacent to the T12-L1, L1-L2, L2-L3, L3-L4, L4-L5, and L5-S1 intervertebral discs. No change in 12 mm cystic focus within the left L4 pedicle. Spinal Cord: Conus medullaris terminates at the upper L1 level. Visualized cord demonstrates normal signal and size. Paraspinous Soft Tissues: No paravertebral masses. L1-L2: Moderate disc height loss and desiccation. Mild diffuse disc bulge. Mild facet and ligamentum flavum hypertrophy. Mild epidural lipomatosis. Mild canal stenosis. Mild bilateral foraminal stenosis. No significant change. L2-L3: Moderate disc height loss and desiccation. Mild diffuse disc bulge. Mild facet and ligamentum flavum hypertrophy. Mild epidural lipomatosis. Mild canal stenosis. Mild bilateral foraminal stenosis. No change. L3-L4: Moderate disc height loss and desiccation. Mild diffuse disc bulge with superimposed new right paracentral disc extrusion which extends superiorly within the lateral recess. Mild facet and ligamentum flavum hypertrophy. Mild epidural lipomatosis. Mild canal stenosis. Mild bilateral foraminal stenosis. Compression and posterior deviation of the right L3 nerve root at the mid/lower L3 level, new since the prior examination. L4-L5: Moderate disc height loss and desiccation. Mild diffuse disc bulge. Moderate facet and ligamentum flavum hypertrophy. Mild canal stenosis. Mild bilateral foraminal stenosis. No significant change. L5-S1: Severe disc height loss and desiccation. Moderate bilateral facet hypertrophy. Mild epidural lipomatosis. Mild canal stenosis. Mild bilateral foraminal stenosis. No significant change IMPRESSION: 1. Multilevel degenerative disc and facet disease, as well as ligamentum flavum hypertrophy and epidural lipomatosis. 2. Mild multilevel canal and foraminal stenosis. 3. L3-L4 disc extrusion, causing right L3 nerve root compression as described above. Recommend correlation with clinical symptoms to ascertain relevance of this finding. Dictated by: Amaya De Dios M.D. on 02/10/2020 at 8:32 Approved by: Amaya De Dios M.D. on 02/10/2020 at 8:38
--- NOTE | 2020-02-09 23:40 | PC.NURSE ---
pt in room. comfortable. admit done by Ana. oriented pt to the room. call light in reach. bed alarm active.
[2020-02-10] VITALS (14 sets, daily range): BP systolic 94–149; BP diastolic 40–80; PULSE 67–108; RESP 12–19; TEMP 35.8–37.4; O2SAT 96–100; BMI 24.7
--- NOTE | 2020-02-10 | DI.RAD.S_ITS ---
PROCEDURE: XR LUMBAR SPINE 2-3V INDICATIONS: MICRODISCECTOMY L3-4 TECHNIQUE: 2 intraoperative fluoroscopic views of the lumbar spine were acquired. COMPARISON: [facility], , XR LUMBAR SPINE 2-3V, 02/09/2020, 21:20. FINDINGS: 2 limited intraoperative fluoroscopic images of the lumbar spine were acquired. Redemonstration of severe disc space narrowing at L5-S1. Instrumentation projects over the L3-4 level. IMPRESSION: Intraoperative fluoroscopic support for lumbar spine procedure. Please see procedural note for further details. Dictated by: Hank Howard M.D. on 02/10/2020 at 17:22 Approved by: Hank Howard M.D. on 02/10/2020 at 17:25
[2020-02-10] MEDS: SODIUM CHLORIDE 0.9% 1,000 ML 125 ML IV ×2 (00:52→10:43)
--- NOTE | 2020-02-10 02:40 | PC.ADMIT ---
[email or web address] Admission Note:Pt arrived to unit without issues. Denied any pain. Reports muscle spasms at times, none currently. Voiding to bed chaudhry without issues. Alert and oriented x4. Skin check done with CURTIS RN The patient,Olena Kaur,79 y/o, was given written information regarding hospital policies, unit procedures and contact persons. Patient's smoking status: Former smoker. Vital Signs - 8 hr 02/09/20 19:52 02/09/20 22:44 Temperature 98.3 F Pulse Rate 92 H 90 Respiratory Rate 15 16 Blood Pressure 162/70 H 155/67 H Pulse Oximetry 98 99
[2020-02-10] MEDS: ACETAMINOPHEN 325 MG TABLET 650 MG PO ×2 (03:12→21:49)
--- NOTE | 2020-02-10 10:06 | PC.NURSE ---
Addendum entered by Tatiana Gage R.N. 02/10/20 15:35: Pt left to OR around 1500. Addendum entered by Tatiana Gage R.N. 02/10/20 11:10: At 1055, per Dr. Panchal pt to remain NPO, surgery today around 1600. Holding PT eval until after surgery. Original Note: Day Shift- Pt A&OX4, able to make her needs known using call light. Bedrest for now until PT eval. Pt using bedpan to void. Able to turn self. States having discomfort to right hip area, ice pack in place. Pt states also having pain and weakness to right knee area. Upon pt trying to lift her leg of the bed. her RLE is weak compared to LLE. Pt states having intermittent numbness to bilateral bottoms of her feet that she had occurring at home as well. Pt went to MRI at 0800 and back at 0835. Pt remains NPO at this time, few ice chips given for oral comfort. IVF infusing well to Left AC PIV. bed alarm on.
--- NOTE | 2020-02-10 11:47 | PM.HP.1 ---
History of Present Illness History of Present Illness Date Patient Seen: 02/10/20 Time Patient Seen: 10:47 Date of Onset of Symptoms: 02/02/20 Chief complaint: rt knee went out on her Narrative: Ms. Hays is a 79 yo F with severe acute onset right leg radiculopathy and inability to walk started 1 week ago. She improved temporarily with resting and her symptoms worsened significantly started 2 days ago. She was admitted to [facility] through ED due to her progressive weakness and inability to support her own weight due to leg weakness. Patient History Medical History Abnormal Pap smear of cervix (Resolved ~1986) Bilateral tinnitus (Chronic Unknown) Cataracts, bilateral (Resolved 2014) Chickenpox (Resolved Unknown) Chronic back pain (Chronic 2006) Depression (Chronic Unknown) Fractures (Resolved 1999) GERD (gastroesophageal reflux disease) (Chronic ~2004) Hypercholesterolemia (Chronic ~2016) Measles (Resolved Unknown) Mumps (Resolved Unknown) Muscle spasm (Resolved 2011) Osteoarthritis (Chronic Unknown) Vertigo (Chronic 1981) Surgical History History of hip replacement History of total mastectomy Status post hysterectomy with oophorectomy Family & Social History Family History Family/Other Adopted Social History: household members none Prior Living Arrangements Apartment/Condo Safety & Behavioral: Feels Safe in Current Yes Environment Been Physically Hurt or No Threatened By a Person Suicidal Ideation Description None Suicide Plan Description No Plan Tobacco & Substance use: Smoking Status Former smoker alcohol intake current alcohol intake frequency a few times a month Substance Use Type does not use Meds Home Medications and Allergies Home Medications Medication Instructions Recorded Confirmed Type cholecalciferol (vitamin D3) 50 2,000 unit PO DAILY 12/18/17 02/09/20 History mcg (2,000 unit) tablet vitamin B complex 1 tab PO DAILY 12/18/17 02/09/20 History Tumeric 1 each PO .QDAY 12/19/17 02/09/20 History Premarin 0.625 mg VAGINAL SEE INSTRUCTIONS 02/09/20 02/09/20 History ascorbic acid (vitamin C) 500 mg PO DAILY 02/09/20 02/09/20 History Allergies Allergy/AdvReac Type Severity Reaction Status Date / Time atropine [From ] AdvReac Intermediate SLOW TO Verified 04/15/19 08:21 METABOLIZE gluten [GLUTEN] AdvReac Intermediate JOINT PAIN Verified 04/15/19 08:21 hyoscyamine [From ] AdvReac Intermediate SLOW TO Verified 04/15/19 08:21 METABOLIZE latex [LATEX] AdvReac Intermediate SKIN Verified 04/15/19 08:21 IRRITATION phenobarbital [From ] AdvReac Intermediate SLOW TO Verified 04/15/19 08:21 METABOLIZE ranitidine [RANITIDINE] AdvReac Intermediate DEPRESSION, Verified 04/15/19 08:21 ITCHING Review of Systems Review of Systems ROS: Yes All systems reviewed with the patient and are negative except as otherwise documented Exam Vital Signs (past 8 hours): - 02/10/20 05:46 02/10/20 09:17 Temperature 99.3 F 98.4 F Pulse Rate 74 91 H Respiratory Rate 16 16 Blood Pressure 111/59 L 125/71 Pulse Oximetry 97 96 Oxygen Delivery Method Room Air Oxygen Flow Rate 0 Neuro Other: RLE with + straight leg raise, 4-/5 TA and quadriceps in RLE, sensibility decreased in right L3, L4 dermatome, DTR 0/2 in right patella. Objective Imaging MRI L-spine: My impression: L4-5 spondylolisthesis, L5-S1 DDD, L3-4 with large extruded disc and right L3, L4 nerve root compression. Labs Labs: Laboratory Results - last 24 hr 02/09/20 21:55 COVID-19 PCR Negative Assessment & Plan Assessment & Plan narrative: 79 yo F with acute onset right leg weakness and inability to stand or walk due to progressive right leg weakness. Patient lives alone and was admitted through the ED. I discussed my findings and treatment options with risks and benefits. RIsks for surgery include but not limited to bleeding, infection, nerve/dura injury, drop foot, need for additional procedure, weakness, numbness, pain. Patient understands and elected to proceed with L3-4 microdisectomy surgery on urgent basis. Patient will have surgery today.
--- NOTE | 2020-02-10 12:35 | PT-IP ANOTE ---
Received PT eval. Dr Panchal order eval after 8 am MRI. checked on pt ~ 1030 am and PLOF and home set up obtained. Dr. Panchal came in prior to mobilizing pt. checked back on pt after ~ [address] min[address] pt [address] Panchal plans to do surgery at 4 pm today with her. nurse confirmed. opted to hold PT eval after surgery. Nurse agreed. pt also understood. will f/u after surgery
--- NOTE | 2020-02-10 12:44 | CM.IDA ---
Addendum entered by RASHID Nicholas 02/11/20 15:43: Discharge orders in 02.11.20 and patient eager to return home, has a friend to stay w/her this evening and will check in as needed. PT cleared patient for return home and patient planned for such. 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 CELSO Original Note: Initial DCP Assessment Note Patient is a 79 yo female, resident of [place]. Patient presents w/acute onset of severe pain and inability to walk, now awaiting L3-4 microdisectomy surgery on urgent basis w/ Dr Panchal, scheduled today PCP: Sabiha Carlos Payer: Manuel/JOAN Reviewed chart. Met w/ patient briefly this morning to introduce role. Patient eager to hear from Dr Panchal re: recommendations after MRI this morning. Patient lives alone, active and indp at baseline. Patient appreciative for the visit Later saw that patient scheduled for spinal surgery today, PT on hold, this GLUING MACHINE OPERATOR [employer] will assess DC needs post operatively. Following closely RASHID Nicholas Discharge Planning/Care Management CM Discharge Assessment Start: 02/10/20 12:39 Freq: Status: Active Protocol: Document 02/10/20 12:39 CELSO (Rec: 02/10/20 12:44 CELSO [id number]) Discharge Planning Assessment Assigned Binder Roller RASHID Daigle DPOA/Assigned Designee Name Sabiha Thomas dtr Contact Information [phone] Advance Directives? No History Provided By Patient Prior Living Arrangements Apartment/Condo Household Members none Type of transporation used prior to Drives own vehicle admit Independent with ADL's Yes Is patient alert and oriented? Yes Comment Lives alone Additional Comment Awaiting surgery and post operative course Review Status In Process
[2020-02-10] MEDS: LACTATED RINGERS 1,000 ML 42 ML IV (15:11)
[2020-02-10] MEDS: CEFAZOLIN 2 GM/100 ML FROZ.PIGGY IV (15:28)
--- NOTE | 2020-02-10 15:56 | SUR.OPER ---
Prone on spine table, head in foam head support, padded chest and pelvic supports, gel pad at knees, lower legs supported by pillows; nipples, genitalia and toes free of pressure, arms secured on foam padded arm boards at <90 degrees abduction. Tape over blanket at thigh secured to table.
[2020-02-10] MEDS: BUPIVACAINE 0.25% W/ EPI 30 ML VIAL INJ (16:00)
[2020-02-10] MEDS: methylPREDNISolone acet DEPO 40 MG/ML VIAL IM (16:01)
--- NOTE | 2020-02-10 16:59 | P.OP_ITS ---
Operative Date/Time/Diagnoses Date of procedure: 02/10/20 Time of procedure: 15:59 Pre-op diagnosis: 1. L3-4 disc extrusion 2. L3-4 lumbar radiculopathy Post-op diagnosis: same Procedure & Clinicians Procedure: 1. L3-4 right microdiscectomy 2. Utilization of microsurgical technique and operating microscope Same procedure as scheduled: Yes Indications: Patient has been having chronic back pain and worsening lumbar radiculopathy. Patient had acute worsening of her back pain started 1 week ago with progressive weakness to her right lower extremity. Patient has been unable to walk for the last 2 days due to right leg weakness. Patient was admitted to the inpatient hospital and had a emergent MRI performed. Patient's MRI showed a large extruded disc at L3-4 level with severe L3-L4 nerve root impingement. Patient has correlating radiculopathy with progressive weakness to her right lower extremity and inability to walk due to her weakness. Patient has been having difficulty performing activity of daily living. After discussing risks benefits of treatment options, patient elected proceed with surgery. Surgeon: Nunu Panchal [employer]alth [employer] Advisor: Geovanna Chávez Click Yes if Unassisted: No Anesthesia Type: General Operative Notes Closure Type: primary Specimen(s): none sent Estimated Blood Loss (mL): 10 Blood products transfused: none Procedure in detail: Patient was seen in the preoperative area. Risks and benefits of the surgery was discussed with the patient. Informed consent was obtained from the patient and placed in the chart. Surgical site was marked. Patient was taken to the operative room. General anesthesia was administered. Prophylactic antibiotic was given to the patient less than 30 min before the incision was made. Patient was placed into a prone position on the Glenn table. Patient's back was then prepped and draped in the sterile fashion. Time- out was performed at this time. Using AP and lateral C-arm imaging the interval between L3-4 was identified and marked on patient's back. A 1 inch incision 1 in from midline was made on the right side. The fascia was incised in line with skin incision. Globus MARS retractors was placed inside the incision and docked onto the L3 lamina. Using microsurgical technique and operating microscope, a L3-4 laminotomy was performed using a Kerrison rongeur. Liagamentum flavum was resected at the site of the laminotomy. The disc space at L3-4 was identified. Microdiscectomy was performed by incising the annulus with #11 blade. Microcurettes and pituitary was used to removed herniated disc fragments of disc from the epidural space. Patient has more than 10 pieces of small extruded disc fragments in epidural space most of the migrated towards the cephalad portion of patient's spine. The loose fragments was removed using micro pituitary and micro curettes. After the microdiskectomy was completed, the area medial lateral superior and inferior to the area of the microdiskectomy was inspected and explored using a micro curette. No other impinging structure was identified. The wound was then irrigated with sterile normal saline. 40 mg Depo-Medrol was placed into the epidural space. The deep fascia was closed with 1-0 Vicryl. The subcutaneous tissue was closed with 2-0 Vicryl. The skin was closed with 4-0 Monocryl. Patient tolerated the procedure well. There were no complications. Patient was transferred recovery room in stable condition. Complications: none Post-operative Condition: stable Disposition: PACU Plan for aftercare: Discharge to home when criteria is met
[2020-02-10] MEDS: ONDANSETRON 4 MG/2 ML INJ IV (17:44)
[2020-02-10] MEDS: METOCLOPRAMIDE 10 MG/2 ML INJ IV (17:44)
[2020-02-10] MEDS: SODIUM CHLORIDE 0.9% 1,000 ML 100 ML IV (18:26)
[2020-02-10] MEDS: DOCUSATE 100 MG CAPSULE PO (21:49)
[2020-02-10] MEDS: SENNOSIDES 8.6 MG TABLET 17.2 MG PO (21:49)
[2020-02-10] MEDS: CEFAZOLIN 1 GM/50 ML FROZ.PIGGY IV (22:51)
[2020-02-11 01:00] VITALS: BP 94/43
--- NOTE | 2020-02-11 01:15 | PC.NURSE ---
Pt having asymptomatic hypotension. Pt reports feeling fine, with no dizziness or lightheadedness. Reports my BP always gets low after surgeries Notified Dr Panchal via telephone. No orders given. Dr Panchal reports to continue to monitor BP. Pt alert and oriented x4. Denies any pain at this time. Back dressing CDI. Pt turning self in bed without issues. Voiding per bedpan. Reports not up to mobilize yet.
[2020-02-11] MEDS: SODIUM CHLORIDE 0.9% 1,000 ML 100 ML IV (04:08)
[2020-02-11] MEDS: ACETAMINOPHEN 325 MG TABLET 650 MG PO ×2 (04:29→13:24)
[2020-02-11 05:47] VITALS: BP 109/66; PULSE 79; RESP 16; TEMP 36.2; O2SAT 96
[2020-02-11] MEDS: CEFAZOLIN 1 GM/50 ML FROZ.PIGGY IV (06:30)
--- NOTE | 2020-02-11 08:35 | PM.PN.1 ---
Exam Vital Signs (past 8 hours): - 02/11/20 01:00 02/11/20 05:47 Temperature 97.2 F L Pulse Rate 79 Respiratory Rate 16 Blood Pressure 94/43 L 109/66 Pulse Oximetry 96 Oxygen Delivery Method Room Air Oxygen Flow Rate 0 Assessment & Plan Assessment & Plan narrative: POD#1 s/p right L3-4 microdiscectomy. Patient has improved pain and improved strength to her RLE. Will do PT/OT later and discharge to home later. Dressing clean and dry. Improved motor strength 4+/5 in RLE quadriceps and TA.
[2020-02-11] MEDS: DOCUSATE 100 MG CAPSULE PO (08:50)
[2020-02-11] MEDS: ASCORBIC ACID 500 MG TABLET PO (08:50)
[2020-02-11] MEDS: CHOLECALCIFEROL (VITAMIN D3) 1,000 UNIT TABLET 2000 UNIT PO (08:50)
--- NOTE | 2020-02-11 09:10 | PT.IIE ---
Surgery Performed Operation Date: 02/10/20 15:45 Actual Procedures p microdiscectomy L3-4(Right) - Nunu Panchal MD Surgical History (Last Reviewed 02/09/20 @ 22:43 by Wilber Trujillo DO) History of hip replacement History of total mastectomy Status post hysterectomy with oophorectomy Medical History (Last Reviewed 02/09/20 @ 22:43 by Wilber Trujillo DO) Abnormal Pap smear of cervix (Resolved ~1986) Bilateral tinnitus (Chronic Unknown) Cataracts, bilateral (Resolved 2014) Chickenpox (Resolved Unknown) Chronic back pain (Chronic 2006) Depression (Chronic Unknown) Fractures (Resolved 1999) GERD (gastroesophageal reflux disease) (Chronic ~2004) Hypercholesterolemia (Chronic ~2016) Measles (Resolved Unknown) Mumps (Resolved Unknown) Muscle spasm (Resolved 2011) Osteoarthritis (Chronic Unknown) Vertigo (Chronic 1981) Physical Therapy Inpatient Evaluation/Re-Eval M1 PT/OT-IP Prior Functional Status Start: 02/11/20 13:01 Freq: NEEDED Status: Active Protocol: Document 02/11/20 09:10 AB (Rec: 02/11/20 13:15 [email or web address]) Medical Review Prior Functional Status Medical History Reviewed Yes Communication able to make needs known Mobility and Gait pt stated that she is independent with all mobilities and ambulation without AD Social History Household Members none Living Arrangements Apartment/Condo Number of Floors (Floors) One Floor Number of Stairs To Enter/Railing? 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 PT-IP Current Condition Start: 02/11/20 13:01 Freq: NEEDED Status: Active Protocol: Document 02/11/20 09:10 AB (Rec: 02/11/20 13:15 [email or web address]) Physical Therapy Current Condition Current Condition Evaluation Date 02/11/20 Treatment Diagnosis L3-4 microdiscektomy; difficulty in walking Onset Date 02/09/20 Precautions Lumbar Precautions Log Roll,No Twisting,Limit Bending,Lifting Restriction of 10 lbs,Gait Belt above Incisional Area M3 PT-IP Subjective Start: 02/11/20 13:01 Freq: NEEDED Status: Active Protocol: Document 02/11/20 09:10 AB (Rec: 02/11/20 13:15 AB [email or web address]) Subjective Physical Therapy Visit Type Type Initial Evaluation Visit Start Time 09:10 Visit Stop Time 10:15 Total Visit Minutes 65 Number of CALENDER RUNNER Visits 0 Physical Therapy Visit Comments Patient Comments pt is agreeable to do PT Therapy Pain Assessment Pain When Pain Assessed At Rest Pain Present Pain Present Pain Reported Location Lower Back Intensity 2 Scale Used Numeric (0 - 10) Pain Management Techniques Distraction,Re-positioning, Timing of Activity with Medications M4 PT-IP Mobility and Gait Start: 02/11/20 13:01 Freq: NEEDED Status: Active Protocol: Document 02/11/20 09:10 AB (Rec: 02/11/20 13:15 AB [id number]) PT-Bed Mobility Assessment Rolling Type of Rolling Log Rolling Level of Assist Standby Assistance Supine to Sit Supine to Sit Standby Assistance Sit to Supine Sit to Supine Standby Assistance Scooting Scooting to Edge of Bed Standby Assistance PT-Transfer Assessment Sit to and From Stand Sit to and from Stand Contact Guard Assistance,Use of Upper Extremities Equipment Transfer Assistive Device Gait Belt,Front Wheeled Walker Orthotic/Prosthetic Devices or Brace: No Transfers Transfer Destination Chair,Toilet Transfer Technique Stand Step Pivot Transfer Ability Level of Assist Contact Guard Assistance,1 Person Assistance Comments Mobility Comments reviewed back precautions and log roll bed mobility. pt completed log roll supine to sit SBA and cues. pt was able to sit on EOB SBA. completed sit to stand CGA and step transfer to chair using FWW CGA. pt stated that she has crutches at home and prefers to use one instead of FWW. educated pt on benefits of crutches vs FWW use. pt stated that she has been using crutches for at least 5 months already and prefers to use that instead of FWW. ambualted training using bilateral axillary crutches conducted. educated on how to do sit to stand and pt completed SBA and ambulated ~ 60 ft SBA to occasional CGA. pt completed up/down steps x 2 sets CGA using L rail and crutches. pt ambulated back towards her room ~ 100 ft SBA. requested to use the toilet and ambulated towards the toilet using bilateral crutches SBA. completed sit to stand from the toilet CGA and ambulated towards sink using crutches SBA. pt was able to maintain standing using counter for support SBA. ambulated to chair using crutches SBA. positioned on chair. OT came in and took over. Gait Assessment Gait Gait Assistance Required: Standby Assistance,Contact Guard Assist Distance (Feet) 100 Able to Maintain Weight Bearing Status Yes During Gait Assistive Devices Assistive Device Gait Belt,Axillary Crutches Orthotic/Prosthetic Devices or Brace: No Gait Deviations General Gait Pattern Decreased Stride Length, Decreased Feet Clearance Factors Limiting Gait Function Factors Limiting Gait Function Decreased Activity Tolerance, Limited Range of Motion,Pain, Poor Balance,Poor Safety Awareness Stair Climbing Assessment Evaluation Level of Assist On Stairs Contact Guard Assistance Devices Stair Climbing Assistive Devices Axillary Crutches,Left Railing Technique/Endurance Stair Climbing Direction Ascend and Descend Stair Climbing Technique Step to Step Number of Steps Climbed 3 Query Text: Stair Climbing Set # Repetitions (reps) 2 PT-Balance Assessment Sitting Balance and Reactions Static Sitting Balance Ability Good Dynamic Sitting Balance Ability Good Standing Balance and Reactions Static Standing Balance Ability Fair Dynamic Standing Balance Ability Fair Device Used crutches M5 PT-IP Objective Assessments Start: 02/11/20 13:01 Freq: NEEDED Status: Active Protocol: Document 02/11/20 09:10 AB (Rec: 02/11/20 13:15 AB [id number]) Orientation Orientation/Cognition Level of Alertness Alert Orientation Name,Age,Birthday,Month,Date, Year,Day of Week,Place, Situation Language Function Ability No Deficits Noted Safety Awareness Understands Safety Issues Memory Description No Deficits Noted Gross Range of Motion Lower Extremity ROM Assessment Within Functional Limits Strength Lower Extremity Strength Assessment Within Functional Limits Coordination Assessment Gross Coordination Gross Coordination WNL Sensation Assessment Sensation Gross Sensation WNL Muscle Tone Muscle Tone WNL Yes M6 PT-IP Treatment Start: 02/11/20 13:01 Freq: NEEDED Status: Active Protocol: Document 02/11/20 09:10 AB (Rec: 02/11/20 13:15 AB [id number]) Physical Therapy Treatment Education Education Provided Precautions,Weight Bearing Status,Post-Op Packet,Safety M7 PT-IP Assessment and Plan Start: 02/11/20 13:01 Freq: NEEDED Status: Active Protocol: Document 02/11/20 09:10 AB (Rec: 02/11/20 13:15 AB [email or web address]) PT Summary Assessment and Plan Potential Rehabilitation Potential Good Status of Condition at Evaluation Stable Summary Impairments Pain,ROM,Strength,Balance,Bed Mobility,Transfers,Gait, Activity Tolerance Assessment Summary pt requiring SBA to CGA with mobility using bilateral crutches. pt plans to go home later today. pt will require homehealth services/PT. Goals Bed Mobility Goal Independent Transfer Goal Independent,Crutches Gait Goal Independent,Crutches Gait Distance 200 Other Goals up/down 3 steps L rail SBA Days to Meet Goals 5 Frequency of Treatment Frequency Of Treatment Twice a Day Treatment Plan Physical Therapy Treatment Plan Bed Mobility Training,Transfer Training,Gait Training, Therapeutic Exercise,Balance Retraining,Post Op Education, Discharge Planning,Hot or Cold Pack,Neuromuscular Re-ed, Coordination Retraining,Manual Therapy Recommendations To Nursing Amount of Assist Needed 1 Person Assist Discharge Recommendations PT Discharge Recommendations Home with Assistance,Home Health Transportation Needs at Discharge Private Vehicle
[2020-02-11 09:20] VITALS: BP 120/64; PULSE 71; RESP 18; TEMP 37.1; O2SAT 96
--- NOTE | 2020-02-11 10:55 | OT.IP.EVAL ---
Surgery Performed Operation Date: 02/10/20 15:45 Actual Procedures p microdiscectomy L3-4(Right) - Nunu Panchal MD Past Medical History (Last Reviewed 02/09/20 @ 22:43 by Wilber Trujillo DO) Abnormal Pap smear of cervix (Resolved ~1986) Bilateral tinnitus (Chronic Unknown) Cataracts, bilateral (Resolved 2014) Chickenpox (Resolved Unknown) Chronic back pain (Chronic 2007) Depression (Chronic Unknown) Fractures (Resolved 1999) GERD (gastroesophageal reflux disease) (Chronic ~2004) Hypercholesterolemia (Chronic ~2016) Measles (Resolved Unknown) Mumps (Resolved Unknown) Muscle spasm (Resolved 2011) Osteoarthritis (Chronic Unknown) Vertigo (Chronic 1981) Surgical History (Last Reviewed 02/09/20 @ 22:43 by Wilber Trujillo DO) History of hip replacement History of total mastectomy Status post hysterectomy with oophorectomy Occupational Therapy Inpatient Evaluation/Re-Eval M1 PT/OT-IP Prior Functional Status Start: 02/11/20 13:14 Freq: NEEDED Status: Active Protocol: Document 02/11/20 10:11 [facility] (Rec: 02/11/20 13:39 [facility] [id number]) Medical Review Prior Functional Status Medical History Reviewed Yes Communication able to make needs known Mobility and Gait pt stated that she is independent with all mobilities and ambulation without AD Activities of Daily Living and IADL's Completely independent for all ADL, IADl, 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 Social History Household Members none Living Arrangements Apartment/Condo Number of Floors (Floors) One Floor Number of Stairs To Enter/Railing? 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 Current Condition Start: 02/11/20 13:14 Freq: Status: Active Protocol: Document 02/11/20 10:11 [facility] (Rec: 02/11/20 13:39 [facility] [id number]) Occupational Therapy Current Condition Current Condition Evaluation Date 02/11/20 Treatment Diagnosis L3-4 disc extrusion and nerve impingement, s/p L3-4 microdiscectomy Diagnosis Onset Date 02/09/20 Post Operative Precautions Lumbar Precautions Log Roll,No Twisting,Limit Bending,Lifting Restriction of 10 lbs,Gait Belt above Incisional Area M3 OT- IP Subjective and Pain Start: 02/11/20 13:14 Freq: Status: Active Protocol: Document 02/11/20 10:11 [facility] (Rec: 02/11/20 13:39 [facility] [id number]) OT- Subjective Occupational Therapy Visit Type Type Initial Evaluation Visit Start Time 10:11 Visit Stop Time 10:55 Total Visit Minutes 44 Occupational Therapy Visit Comments Patient Comments Pt agreed to get up for OT eval. Patient/Caregiver Goals TO go home. OT Pain Assessment Pain When Pain Assessed During Mobility Pain Present Pain Present Pain Reported Location Lower Back Intensity 3 Scale Used Numeric (0 - 10) M4 OT- IP ADL's Start: 02/11/20 13:14 Freq: Status: Active Protocol: Document 02/11/20 10:11 [facility] (Rec: 02/11/20 13:39 [facility] [id number]) OT ADL-Grooming General Evaluation Grooming Ability Independent OT ADL-Oral Care General Eval Oral Care Ability Independent OT ADL-Dressing General Eval Upper Body Dressing Ability Independent Lower Body Dressing Ability Maximum Assistance Areas Needing Assistance Socks Comments OT Dressing Comments Pt issued fire equipment operator and sock aid and now able to do LB dressing with increased ease and safety. OT ADL-Toileting Comments OT Toileting Comments Pt not having to go. Educated pt to stand to wipe to best follow her back precautions. Suggested may also benefit from a BSC, pt states for now does not want to use one. In addition to wear pads at night. OT ADL-Bathing Comments OT Bathing Comments Pt states to shower at home. Recommended pt to get a shower chair and have friend come by to assist. M5 OT- IP IADL's Start: 02/11/20 13:14 Freq: Status: Active Protocol: Document 02/11/20 10:11 [facility] (Rec: 02/11/20 13:39 [facility] [id number]) OT-Instrumental Activities of Daily Living Home Safety Awareness Awareness of Need for Assistance at Home Good Awareness Ability to Problem Solve Emergency Able to Problem Solve Situations Medication Management Medication Management No Deficits Identified Money Management Money Management No Deficits Identified Meal Preparation Meal Preparation Caregiver Provides Assist Desk Monitor Desk Monitor Caregiver Provides Assist M6 OT- IP Functional Cognition Start: 09/10/20 13:14 Freq: Status: Active Protocol: Document 02/11/20 10:11 [facility] (Rec: 02/11/20 13:39 [facility] [id number]) Cognitive Factors Limiting Selfcare Function Cognitive Ability Level of Alertness Alert Patient Orientation Name,Age,Birthday,Month,Date, Year,Day of Week,Place, Situation Attention Span Ability Capable of Focused Attention, Capable of Sustained Attention Ability to Follow Commands Able to Follow Multi-Step Commands Memory Description No Deficits Noted Safety Awareness Underestimates Need for Assistance Problem Solving Ability No deficits Noted Cognitive Comments Cognitive Assessment Comments Pt needing occasional vc to slow down and follow her back precautions. Able to talk through getting a FWW versus use of crutches would be easier for LB dressing and toileting needs while standing . The FWW would be safer to use as pt would not be able to pick and shovel worker the crutches just in case they were to fall down. In addition educated to pt bags can be placed on the FWW to help transport items and eventually transition to 4WW so able to move items around versus carry them. Suggested pt to carry her cell phone with her at all times. OT- Vision and Hearing OT- Hearing Assessment OT- Hearing Assessment WFL OT- Vision Assessment Visual Acuity Glasses For Reading M7 OT- IP Mobility and Balance Start: 02/11/20 13:14 Freq: Status: Active Protocol: Document 02/11/20 10:11 [facility] (Rec: 02/11/20 13:39 [facility] [id number]) OT- Bed Mobility Assessment Rolling Type of Rolling Roll to Right Level of Assistance Standby Assistance Supine to Sit Supine to Sit Assist Standby Assistance Sit to Supine Sit to Supine Assist Standby Assistance Scooting Scooting to Edge of Bed Standby Assistance OT-Transfer Assessment Sit to and From Stand Sit to and from Stand Standby Assistance Transfers Transfer Ability Standby Assistance Technique Transfer Destination Bed,Chair Transfer Technique Stand Step Pivot Devices Transfer Assistive Devices Gait Belt,Front Wheeled Walker OT- Gait Assessment Comments Gait Ability Comments SBA with FWW. OT- Balance Assessment Sitting Balance and Reactions Static Sitting Balance Ability Normal Dynamic Sitting Balance Ability Normal Standing Balance and Reactions Static Standing Balance Ability Good M8 OT- IP Objective Assessments Start: 02/11/20 13:14 Freq: Status: Active Protocol: Document 02/11/20 10:11 [facility] (Rec: 02/11/20 13:39 [facility] [id number]) OT Gross Range of Motion Upper Extremity Range of Motion Assessment Within Functional Limits OT-Muscle Tone Assessment Muscle Tone WNL Yes M9 OT- IP Assessment and Plan Start: 02/11/20 13:14 Freq: Status: Active Protocol: Document 02/11/20 10:11 [facility] (Rec: 02/11/20 13:39 [facility] [id number]) OT Summary Assessment and Plan Potential Rehabilitation Potential Good Analytic Complexity at Evaluation Low Summary OT Impairments Functional Mobility,Dressing, Bathing Progress Towards Goals Progressing Toward Goals Assessment Summary Pt low complexity and main barriers are steps and needing to slow down remember to incorporate her back precautions. Pt given sock aid , fire equipment operator and friends looking to get her a shower chair and FWW. Pt to have her massage therapist stay with her tonight. Pt would benefit from home health. Goals Grooming Goal Independent Dressing Goal Independent Toileting Goal Independent Bathing Goal Independent Toilet Transfer Goal Independent Shower Transfer Goal Independent Days to Meet Goals 1 Frequency of Treatment Frequency Of Treatment Once a Day Treatment Plan OT Treatment Plan ADL Training,Patient/Family Education,Discharge Planning Other Treatment Recommendations and Next Shower if still here. Treatment Focus Discharge Recommendations OT Discharge Recommendations Home with Assistance,Home Health Home Equipment Needs shower chair, FWW Transportation Needs at Discharge Private Vehicle
[2020-02-11 11:36] VITALS: BP 127/56; PULSE 63; RESP 18; TEMP 36.5; O2SAT 96
--- NOTE | 2020-02-11 13:46 | PC.NURSE ---
Addendum entered by Tatiana Gage R.N. 02/11/20 14:28: Pt left at 1428 via wheelchair in no distress with CATTLE MANAGER escort. pt's friend Elenita Fowler present on unit to drive pt home. pt left unit with all her belongings. Original Note: Day Shift- Pt states is ready to go home, worked with both OT and PT. Lower back dressing of gauze and tegaderm CDI. Pt states pain controlled with prn Tylenol. Last given at 1324 for 2.5/10 incision aching. pt states right knee area she is aware of something there, no pain. Discharge summary packet reviewed with pt around 1130, aware of S/S of infection, follow up appointment made. Pt states she thinks she has stool softeners at home as she has had post surgery constipation in the past. Encouraged ambulation every couple of hours. States her friend will be saying the night with her tonight and another friend will be driving pt home. Aware of need to have prescriptions filled. No further voiced concerns. Pt expresses thanks for her care from all the care team. pt states she has all her personal belongings upon discharge.
== END 2020-02-11 14:28 | disposition home or self-care (01) | DRG 520 ==
LOC: ED 21:36 → AC 21:45
PROVIDERS: Admitting Provider Orthopaedic Surgery Orthopaedic Surgery of the Spine; Emergency Provider Emergency Medicine; Family Provider Family Medicine; PCP Internal Medicine; Referring Provider Emergency Medicine; Visit Provider Orthopaedic Surgery Orthopaedic Surgery of the Spine
PROC: 0SB20ZZ Excision of Lumbar Vertebral Disc, Open Approach (ICD-10-PCS; principal; 2020-02-10 15:45)
DX: M51.16 Intervertebral disc disorders with radiculopathy, lumbar region (principal); Z85.3 Personal history of malignant neoplasm of breast
CPT/HCPCS: 72100; 72148; 76000; 87635; 96374; 97116; 97161; 97165; 97530; 97535; 99283; 99284; J0690; J1030; J1100; J2250; J2405; J2704; J2765; J3010

== ENCOUNTER → 2020-04-14 08:14 | Outpatient (CLI) | payer OTHER, MEDICARE, SELFPAY ==
[2020-04-14 10:03] LABS: Cholesterol 226 mg/dL (140-199); HDL Cholesterol 72 mg/dL (40-60); LDL Cholesterol Calculated 135 mg/dL (<100); Triglycerides 94 mg/dL (35-150)
== END ==
PROVIDERS: Family Provider Internal Medicine; PCP Internal Medicine; Referring Provider Internal Medicine Cardiovascular Disease; Visit Provider Internal Medicine Cardiovascular Disease
DX: Z00.00 Encounter for general adult medical examination without abnormal findings (principal)
CPT/HCPCS: 36415; 80061

== ENCOUNTER 2020-04-21 16:45 | Outpatient (RCR) | payer OTHER, MEDICARE, SELFPAY ==
--- NOTE | 2020-04-05 17:30 | PT.OIE ---
Current Diagnoses Lumbago with sciatica, right side (04/05/20) Muscle weakness (generalized) (04/05/20) Other abnormalities of gait and mobility (04/05/20) Other specified postprocedural states (04/05/20) Past Medical History (Last Reviewed 02/09/20 @ 22:43 by Wilber Trujillo DO) Abnormal Pap smear of cervix (Resolved ~1986) Bilateral tinnitus (Chronic Unknown) Cataracts, bilateral (Resolved 2014) Chickenpox (Resolved Unknown) Chronic back pain (Chronic 2006) Depression (Chronic Unknown) Fractures (Resolved 1999) GERD (gastroesophageal reflux disease) (Chronic ~2004) Hypercholesterolemia (Chronic ~2017) Measles (Resolved Unknown) Mumps (Resolved Unknown) Muscle spasm (Resolved 2011) Osteoarthritis (Chronic Unknown) Vertigo (Chronic 1981) Past Surgical History (Last Reviewed 02/09/20 @ 22:43 by Wilber Trujillo DO) History of hip replacement History of total mastectomy Status post hysterectomy with oophorectomy Visit Care Team Role Provider Type CARL Santana Family Provider Advanced Pet Groomer Primary Care Provider Specialty: [facility] Practice Address: [address] [place] [address], [id number] Email: [email or web address] Nunu Panchal MD Attending Provider Physician Referring Provider Specialty: Orthopedic Surgery Address: [address] [place] [address], [id number] Email: [email or web address] Physical Therapy Initial Evaluation PT-OP-A Visit Information Start: 04/05/20 17:35 Freq: Status: Active Protocol: Document 04/05/20 16:45 DCW (Rec: 04/05/20 17:50 DCW [id number]) Out-Patient Physical Therapy Visit Information Visit Information Visit Type Initial Evaluation Visit Start Time 16:45 Visit Stop Time 17:25 Total Visit Minutes 40 Visit Number 1 Number of SENIOR FINANCIAL ANALYST Visits 0 Evaluation Information Evaluation Date 04/05/20 PT-OP-B Current Condition Start: 04/05/20 17:35 Freq: Status: Active Protocol: Document 04/05/20 16:45 DCW (Rec: 04/05/20 17:50 DCW [id number]) Current Condition History of Current Condition Onset Date 02/10/20 Current Complaints Weakness, imbalance following microdiscectomy History of Current Condition Pt is a 79 year old female presenting three months s/p L3 -4 Microdiscectomy. Pt notes she was walking up the stairs on or around 02/05/20, and her right leg just suddenly gave out. She had to crawl back up the stairs, call her neighbor for help, get her crutches, and she then suffered another fall on the stairs because her leg was still not working. After a few trips to the ED, she was found to have a fairly large L3-4 disc protrusion with severe L3-4 nerve root impingement. Pt was scheduled for surgery the next day, and on 02/10/20, had a microdiscectomy. Pt reports she has improved quite a bit since the surgery, her sensation has improved, she no longer has any tingling, and she has returned to walking ~2 miles daily, however she feels she still has noticeable weakness in her right leg, especially when fatigued, her balance has declined, and she will occasionally catch her right foot when walking. Prior Treatments and Tests Pt has been seen at this facility for various injuries over a number of years, including PATTI. Treatment Goals Patient/Caregiver Goals I want to be able to trust my balance again, and I want to learn some protective measures to make sure something like this doesn't happen again. PT-OP-C Subjective Start: 04/05/20 17:35 Freq: Status: Active Protocol: Document 04/05/20 16:45 DCW (Rec: 04/05/20 17:50 DCW [id number]) OP-PT Subjective Patient Comments Patient Comments I amgetting better, but it's like my balance is just gone. Patient Reported Progress Improving Patient Questionnaires Oswestry Low Back Index Oswestry Score 12% Oswestry Impairment 1 to 19% Impaired (Score 1-19) OP-PT Pain Assessment Pain Assessment Grid Paper Pain Assessment Grid Completed Yes Location Lower Back Intensity 3 Scale Used Numeric (0 - 10) PT-OP-D Balance Start: 04/05/20 17:35 Freq: Status: Active Protocol: Document 04/05/20 16:45 DCW (Rec: 04/05/20 17:56 DCW [id number]) OP-PT Balance Assessment Sitting Balance Static Sitting Balance Ability Normal Dynamic Sitting Balance Ability Normal Standing Balance Static Standing Balance Ability Good Dynamic Standing Balance Ability Normal Balance Tests Clark Balance Test Clark Balance Test Score 50/56 Clark Impairment Rating 1 to 19% Impaired (Score 45-55 ) mCTSIB mCTSIB Position 1 30 sec mCTSIB Position 2 30 sec mCTSIB Position 3 30 sec mCTSIB Position 4 30 sec Single Limb Standing Single Limb- Right 17 sec Single Limb- Left 7 sec Tandem Tandem Standing L forward: 30 seconds, R forward: 5 seconds Shaffer Fall Scale Copyright Permission PT-OP-E Functional Tests Start: 04/05/20 17:35 Freq: Status: Active Protocol: Document 04/05/20 16:45 DCW (Rec: 04/05/20 17:56 DCW [id number]) Functional Tests Timed Up and Go (TUG) Score 8.52 seconds Comments 3-trial average (9.45, 8.24, 7 .87) PT-OP-M Strength Start: 04/05/20 17:35 Freq: Status: Active Protocol: Document 04/05/20 16:45 DCW (Rec: 04/05/20 17:56 DCW [id number]) Hip Strength Hip Manual Muscle Testing Right Flexion (L2) 3+ Fair+ Extension (S1) 4+ Good+ Abduction 4- Good- Adduction 4- Good- External Rotation 4- Good- Internal Rotation 4 Good Left Flexion (L2) 4 Good Extension (S1) 4+ Good+ Abduction 4 Good Adduction 4+ Good+ External Rotation 4 Good Internal Rotation 4+ Good+ Knee Strength Knee Manual Muscle Testing Right Flexion (S2) 4 Good Extension (L3) 4- Good- Left Flexion (S2) 4+ Good+ Extension (L3) 4+ Good+ Ankle/Foot Strength Ankle and Foot Manual Muscle Testing Right Dorsiflexion (L4) 4- Good- Plantarflexion (S1) 4+ Good+ Left Dorsiflexion (L4) 4 Good Plantarflexion (S1) 4+ Good+ PT-OP-T Assessment and Plan Start: 04/05/20 17:35 Freq: Status: Active Protocol: Document 04/05/20 16:45 DCW (Rec: 04/06/20 17:39 DCW [id number]) Physical Therapy Assessment Rehab Potential Rehabilitation Potential Good Evaluation Complexity Number of Personal Factors/Comorbidities 1-2 Number of Body Systems Impaired 3 Clinical Presentation at Evaluation Stable Impairments Impairments Balance,Functional Activities, Functional Mobility,Pain, Strength Goals Four Impairment Pt shows LE weakness on right LE, especially hip flexion and add/abduction Shelter Goal (LTG) Pt to present with a gross LE MMT of 4+/5 LTG Duration 06/05/20 Three Impairment Pt experiencing decreased balance when donning socks Employment Programs Analyst Goal (LTG) Pt to improve SLS to 20 seconds bilaterally LTG Duration 06/05/20 Two Impairment Pt exhibits substantial decrease in tandem stance with R foot fwd=5 vs 30 Shelter Goal (LTG) Pt to hold tandem stance for 45 seconds both with left and with right foot forward LTG Duration 06/05/20 One Impairment Pt does not have an appropriate home exercise program Short Term Goal (STG) Pt to be independent and compliant with an appropriate HEP STG Duration 05/05/20 Assessment Summary Assessment Pt presents to skilled physical therapy nearly three months s/p L3-4 microdiscectomy. Pt is largely doing well, mobility and gait returning to pre-morbidity levels, however pt continues to exhibit right lower extremity weakness and decreased balance in some situations, which has affected her daily activities. Pt should benefit from skilled PT focusing on LE strengthening, balance training, and increased activity tolerance. Physical Therapy Plan Frequency and Duration Frequency of Treatment 2x/Week Duration of Treatment 10 weeks Plan of Care Start Date 04/05/20 Plan of Care End Date 06/14/20 Therapeutic Interventions Therapeutic Interventions Home Exercise Program,Joint Mobilizations,Manual Therapy, Neuromuscular Re-education, Patient/Caregiver Education, Self-Care/Home Management,Soft Tissue Mobilization, Therapeutic Activities, Therapeutic Exercises Modalities Cold Pack/Ice Massage,Electric Stimulation,Hot Packs, Ultrasound Next Visit Focus/Plan Next Note Type Treatment Note Next Visit Plan LE strengthening, balance training
--- NOTE | 2020-04-05 17:30 | PT.OPPOC ---
Physical, Occupational & Speech Therapy At [facility] Current Diagnoses Lumbago with sciatica, right side (04/05/20) Muscle weakness (generalized) (04/05/20) Other abnormalities of gait and mobility (04/05/20) Other specified postprocedural states (04/05/20) Visit Care Team Role Provider Type CARL Santana Family Provider Advanced Vamp Liner Primary Care Provider Specialty: Family Practice Address: [address] [place] [address], [facility], [place], [address] Email: [email or web address] Nunu Panchal MD Attending Provider Physician Referring Provider Specialty: Orthopedic Surgery Address: [address] [place] [address], [id number] Email: [email or web address] Plan Of Care PT-OP-T Assessment and Plan Start: 04/05/20 17:35 Freq: Status: Active Protocol: Document 04/05/20 16:45 DCW (Rec: 04/06/20 17:39 DCW [id number]) Physical Therapy Assessment Rehab Potential Rehabilitation Potential Good Evaluation Complexity Number of Personal Factors/Comorbidities 1-2 Number of Body Systems Impaired 3 Clinical Presentation at Evaluation Stable Impairments Impairments Balance,Functional Activities, Functional Mobility,Pain, Strength Goals Four Impairment Pt shows LE weakness on right LE, especially hip flexion and add/abduction Machine Operators Goal (LTG) Pt to present with a gross LE MMT of 4+/5 LTG Duration 06/05/20 Three Impairment Pt experiencing decreased balance when donning socks Chcf Goal (LTG) Pt to improve SLS to 20 seconds bilaterally LTG Duration 06/05/20 Two Impairment Pt exhibits substantial decrease in tandem stance with R foot fwd=5 vs 30 Chcf Goal (LTG) Pt to hold tandem stance for 45 seconds both with left and with right foot forward LTG Duration 06/05/20 One Impairment Pt does not have an appropriate home exercise program Short Term Goal (STG) Pt to be independent and compliant with an appropriate HEP STG Duration 05/05/20 Assessment Summary Assessment Pt presents to skilled physical therapy nearly three months s/p L3-4 microdiscectomy. Pt is largely doing well, mobility and gait returning to pre-morbidity levels, however pt continues to exhibit right lower extremity weakness and decreased balance in some situations, which has affected her daily activities. Pt should benefit from skilled PT focusing on LE strengthening, balance training, and increased activity tolerance. Physical Therapy Plan Frequency and Duration Frequency of Treatment 2x/Week Duration of Treatment 10 weeks Plan of Care Start Date 04/05/20 Plan of Care End Date 06/14/20 Therapeutic Interventions Therapeutic Interventions Home Exercise Program,Joint Mobilizations,Manual Therapy, Neuromuscular Re-education, Patient/Caregiver Education, Self-Care/Home Management,Soft Tissue Mobilization, Therapeutic Activities, Therapeutic Exercises Modalities Cold Pack/Ice Massage,Electric Stimulation,Hot Packs, Ultrasound Next Visit Focus/Plan Next Note Type Treatment Note Next Visit Plan LE strengthening, balance training Plan of Care Dates Plan of Care Start Date 04/05/20 Plan of Care End Date 06/14/20 Electronically Signed by: Rosendo Galan, PT 04/06/20 9222 Please Sign and Return: I have reviewed this Plan of Care and certify that the skilled therapy services above are required to meet the patient?s needs. Physician Signature Date Printed Name and Credentials Clinical Instructor Signature Printed Name and Credentials
--- NOTE | 2020-04-07 17:36 | PT.OTN ---
Current Diagnoses Lumbago with sciatica, right side (04/07/20) Muscle weakness (generalized) (04/07/20) Other abnormalities of gait and mobility (04/07/20) Other specified postprocedural states (04/07/20) Physical Therapy Treatment Note PT-OP-A Visit Information Start: 04/05/20 17:35 Freq: Status: Active Protocol: Document 04/07/20 16:45 DCW (Rec: 04/07/20 17:36 DCW [id number]) Out-Patient Physical Therapy Visit Information Visit Information Visit Type Treatment Note Visit Start Time 16:45 Visit Stop Time 17:30 Total Visit Minutes 45 Visit Number 2 Number of CAR PILOT Visits 0 Evaluation Information Evaluation Date 04/05/20 PT-OP-B Current Condition Start: 04/05/20 17:35 Freq: Status: Active Protocol: Document 04/05/20 16:45 DCW (Rec: 04/05/20 17:50 DCW [id number]) Current Condition History of Current Condition Onset Date 02/10/20 Current Complaints Weakness, imbalance following microdiscectomy History of Current Condition Pt is a 79 year old female presenting three months s/p L3 -4 Microdiscectomy. Pt notes she was walking up the stairs on or around 02/05/20, and her right leg just suddenly gave out. She had to crawl back up the stairs, call her neighbor for help, get her crutches, and she then suffered another fall on the stairs because her leg was still not working. After a few trips to the ED, she was found to have a fairly large L3-4 disc protrusion with severe L3-4 nerve root impingement. Pt was scheduled for surgery the next day, and on 02/10/20, had a microdiscectomy. Pt reports she has improved quite a bit since the surgery, her sensation has improved, she no longer has any tingling, and she has returned to walking ~2 miles daily, however she feels she still has noticeable weakness in her right leg, especially when fatigued, her balance has declined, and she will occasionally catch her right foot when walking. Prior Treatments and Tests Pt has been seen at this facility for various injuries over a number of years, including PATTI. Treatment Goals Patient/Caregiver Goals I want to be able to trust my balance again, and I want to learn some protective measures to make sure something like this doesn't happen again. PT-OP-C Subjective Start: 04/05/20 17:35 Freq: Status: Active Protocol: Document 04/07/20 16:45 DCW (Rec: 04/07/20 17:36 DCW [id number]) OP-PT Subjective Patient Comments Patient Comments I've been having some blood pressure issues today. PT-OP-D Balance Start: 04/05/20 17:35 Freq: Status: Active Protocol: Document 04/05/20 16:45 DCW (Rec: 04/05/20 17:56 DCW [id number]) OP-PT Balance Assessment Sitting Balance Static Sitting Balance Ability Normal Dynamic Sitting Balance Ability Normal Standing Balance Static Standing Balance Ability Good Dynamic Standing Balance Ability Normal Balance Tests Clark Balance Test Clark Balance Test Score 50/56 Clark Impairment Rating 1 to 19% Impaired (Score 45-55 ) mCTSIB mCTSIB Position 1 30 sec mCTSIB Position 2 30 sec mCTSIB Position 3 30 sec mCTSIB Position 4 30 sec Single Limb Standing Single Limb- Right 17 sec Single Limb- Left 7 sec Tandem Tandem Standing L forward: 30 seconds, R forward: 5 seconds Shaffer Fall Scale Copyright Permission PT-OP-E Functional Tests Start: 04/05/20 17:35 Freq: Status: Active Protocol: Document 04/05/20 16:45 DCW (Rec: 04/05/20 17:56 DCW [id number]) Functional Tests Timed Up and Go (TUG) Score 8.52 seconds Comments 3-trial average (9.45, 8.24, 7 .87) PT-OP-M Strength Start: 04/05/20 17:35 Freq: Status: Active Protocol: Document 04/05/20 16:45 DCW (Rec: 04/05/20 17:56 DCW [id number]) Hip Strength Hip Manual Muscle Testing Right Flexion (L2) 3+ Fair+ Extension (S1) 4+ Good+ Abduction 4- Good- Adduction 4- Good- External Rotation 4- Good- Internal Rotation 4 Good Left Flexion (L2) 4 Good Extension (S1) 4+ Good+ Abduction 4 Good Adduction 4+ Good+ External Rotation 4 Good Internal Rotation 4+ Good+ Knee Strength Knee Manual Muscle Testing Right Flexion (S2) 4 Good Extension (L3) 4- Good- Left Flexion (S2) 4+ Good+ Extension (L3) 4+ Good+ Ankle/Foot Strength Ankle and Foot Manual Muscle Testing Right Dorsiflexion (L4) 4- Good- Plantarflexion (S1) 4+ Good+ Left Dorsiflexion (L4) 4 Good Plantarflexion (S1) 4+ Good+ PT-OP-Q Treatments Start: 04/05/20 17:35 Freq: Status: Active Protocol: Document 04/07/20 16:45 DCW (Rec: 04/07/20 17:36 DCW [id number]) Gym Equipment Shuttle Recovery Bilateral Heel Raises Resistance 50# Unilateral Squats Resistance 37# Shuttle Recovery Platform Stable Bilateral Squats Resistance 75# Shuttle Recovery Platform Stable Shuttle Balance Red Details Wide RENATE, Staggered Therapeutic Exercises Other Exercises 1 Other Exercise Name Step-up with opposite leg march Side bilateral Resistance 5# Resisted Ambulation Other Exercise Name Resisted side-stepping, Forward, Backward Resistance Yellow Equipment Used T-band Neuro Re-Education Treatment Balance Activities 1 Details Tandem ambulation PT-OP-T Assessment and Plan Start: 04/05/20 17:35 Freq: Status: Active Protocol: Document 04/07/20 16:45 DCW (Rec: 04/07/20 17:36 DCW [id number]) Physical Therapy Assessment Impairments Impairments Balance,Functional Activities, Functional Mobility,Pain, Strength Goals Four Impairment Pt shows LE weakness on right LE, especially hip flexion and add/abduction Longterm Goal (LTG) Pt to present with a gross LE MMT of 4+/5 LTG Duration 06/05/20 Three Impairment Pt experiencing decreased balance when donning socks Card Painter Goal (LTG) Pt to improve SLS to 20 seconds bilaterally LTG Duration 06/05/20 Two Impairment Pt exhibits substantial decrease in tandem stance with R foot fwd=5 vs 30 Card Painter Goal (LTG) Pt to hold tandem stance for 45 seconds both with left and with right foot forward LTG Duration 06/05/20 One Impairment Pt does not have an appropriate home exercise program Short Term Goal (STG) Pt to be independent and compliant with an appropriate HEP STG Duration 05/05/20 Assessment Summary Assessment Pt requested BP measurement, showed 160/82. Pt walking with constantly scuffing both feet as well, assessed pt sensation, which was WNL, did show increased edema along B feet, discussed possibilities, likely due to recent inactivity after injury. Pt did tolerate all activities relatively well. Physical Therapy Plan Frequency and Duration Frequency of Treatment 2x/Week Duration of Treatment 10 weeks Plan of Care Start Date 04/05/20 Plan of Care End Date 06/14/20 Therapeutic Interventions Therapeutic Interventions Home Exercise Program,Joint Mobilizations,Manual Therapy, Neuromuscular Re-education, Patient/Caregiver Education, Self-Care/Home Management,Soft Tissue Mobilization, Therapeutic Activities, Therapeutic Exercises Modalities Cold Pack/Ice Massage,Electric Stimulation,Hot Packs, Ultrasound Next Visit Focus/Plan Next Note Type Treatment Note Next Visit Plan LE strengthening, balance training
--- NOTE | 2020-04-12 16:44 | PT.OTN ---
Current Diagnoses Lumbago with sciatica, right side (04/12/20) Muscle weakness (generalized) (04/12/20) Other abnormalities of gait and mobility (04/12/20) Other specified postprocedural states (04/12/20) Physical Therapy Treatment Note PT-OP-A Visit Information Start: 04/05/20 17:35 Freq: Status: Active Protocol: Document 04/12/20 16:00 DCW (Rec: 04/12/20 16:44 DCW [id number]) Out-Patient Physical Therapy Visit Information Visit Information Visit Type Treatment Note Visit Start Time 16:00 Visit Stop Time 16:45 Total Visit Minutes 45 Visit Number 3 Number of SERVICE OPERATOR Visits 0 Evaluation Information Evaluation Date 04/05/20 PT-OP-B Current Condition Start: 04/05/20 17:35 Freq: Status: Active Protocol: Document 04/05/20 16:45 DCW (Rec: 04/05/20 17:50 DCW [id number]) Current Condition History of Current Condition Onset Date 02/10/20 Current Complaints Weakness, imbalance following microdiscectomy History of Current Condition Pt is a 79 year old female presenting three months s/p L3 -4 Microdiscectomy. Pt notes she was walking up the stairs on or around 02/05/20, and her right leg just suddenly gave out. She had to crawl back up the stairs, call her neighbor for help, get her crutches, and she then suffered another fall on the stairs because her leg was still not working. After a few trips to the ED, she was found to have a fairly large L3-4 disc protrusion with severe L3-4 nerve root impingement. Pt was scheduled for surgery the next day, and on 02/10/20, had a microdiscectomy. Pt reports she has improved quite a bit since the surgery, her sensation has improved, she no longer has any tingling, and she has returned to walking ~2 miles daily, however she feels she still has noticeable weakness in her right leg, especially when fatigued, her balance has declined, and she will occasionally catch her right foot when walking. Prior Treatments and Tests Pt has been seen at this facility for various injuries over a number of years, including PATTI. Treatment Goals Patient/Caregiver Goals I want to be able to trust my balance again, and I want to learn some protective measures to make sure something like this doesn't happen again. PT-OP-C Subjective Start: 04/05/20 17:35 Freq: Status: Active Protocol: Document 04/12/20 16:00 DCW (Rec: 04/12/20 16:44 DCW [id number]) OP-PT Subjective Patient Comments Patient Comments I've been feeling better. Much better, actually. PT-OP-D Balance Start: 04/05/20 17:35 Freq: Status: Active Protocol: Document 04/05/20 16:45 DCW (Rec: 04/05/20 17:56 DCW [id number]) OP-PT Balance Assessment Sitting Balance Static Sitting Balance Ability Normal Dynamic Sitting Balance Ability Normal Standing Balance Static Standing Balance Ability Good Dynamic Standing Balance Ability Normal Balance Tests Clark Balance Test Clark Balance Test Score 50/56 Clark Impairment Rating 1 to 19% Impaired (Score 45-55 ) mCTSIB mCTSIB Position 1 30 sec mCTSIB Position 2 30 sec mCTSIB Position 3 30 sec mCTSIB Position 4 30 sec Single Limb Standing Single Limb- Right 17 sec Single Limb- Left 7 sec Tandem Tandem Standing L forward: 30 seconds, R forward: 5 seconds Shaffer Fall Scale Copyright Permission PT-OP-E Functional Tests Start: 04/05/20 17:35 Freq: Status: Active Protocol: Document 04/05/20 16:45 DCW (Rec: 04/05/20 17:56 DCW [id number]) Functional Tests Timed Up and Go (TUG) Score 8.52 seconds Comments 3-trial average (9.45, 8.24, 7 .87) PT-OP-M Strength Start: 04/05/20 17:35 Freq: Status: Active Protocol: Document 04/05/20 16:45 DCW (Rec: 04/05/20 17:56 DCW [id number]) Hip Strength Hip Manual Muscle Testing Right Flexion (L2) 3+ Fair+ Extension (S1) 4+ Good+ Abduction 4- Good- Adduction 4- Good- External Rotation 4- Good- Internal Rotation 4 Good Left Flexion (L2) 4 Good Extension (S1) 4+ Good+ Abduction 4 Good Adduction 4+ Good+ External Rotation 4 Good Internal Rotation 4+ Good+ Knee Strength Knee Manual Muscle Testing Right Flexion (S2) 4 Good Extension (L3) 4- Good- Left Flexion (S2) 4+ Good+ Extension (L3) 4+ Good+ Ankle/Foot Strength Ankle and Foot Manual Muscle Testing Right Dorsiflexion (L4) 4- Good- Plantarflexion (S1) 4+ Good+ Left Dorsiflexion (L4) 4 Good Plantarflexion (S1) 4+ Good+ PT-OP-Q Treatments Start: 04/05/20 17:35 Freq: Status: Active Protocol: Document 04/12/20 16:00 DCW (Rec: 04/12/20 16:44 DCW [id number]) Gym Equipment Shuttle Recovery Bilateral Heel Raises Resistance 50# Unilateral Squats Resistance 37# Shuttle Recovery Platform Stable Bilateral Squats Resistance 75# Shuttle Recovery Platform Stable Shuttle Balance Red Details Wide RENATE, Staggered, Lateral weight shift Therapeutic Exercises Other Exercises Resisted Ambulation Other Exercise Name Resisted side-stepping, Forward, Backward Resistance Yellow Equipment Used T-band Manual Therapy Treatment Soft Tissue Mobilization ITB Body Location R ITB Mobilization Type Strumming,Sustained Pressure Body Position Hooklying Neuro Re-Education Treatment Balance Activities Tandem Stance Details Tandem Stance Surface Blue Foam 2 Details SLS Surface Blue Foam 1 Details Tandem Ambulation PT-OP-T Assessment and Plan Start: 04/05/20 17:35 Freq: Status: Active Protocol: Document 04/12/20 16:00 DCW (Rec: 04/12/20 16:44 DCW [id number]) Physical Therapy Assessment Impairments Impairments Balance,Functional Activities, Functional Mobility,Pain, Strength Goals Four Impairment Pt shows LE weakness on right LE, especially hip flexion and add/abduction Usp Goal (LTG) Pt to present with a gross LE MMT of 4+/5 LTG Duration 06/05/20 Three Impairment Pt experiencing decreased balance when donning socks Transformer Shop Supervisor Goal (LTG) Pt to improve SLS to 20 seconds bilaterally LTG Duration 06/05/20 Two Impairment Pt exhibits substantial decrease in tandem stance with R foot fwd=5 vs 30 Transformer Shop Supervisor Goal (LTG) Pt to hold tandem stance for 45 seconds both with left and with right foot forward LTG Duration 06/05/20 One Impairment Pt does not have an appropriate home exercise program Short Term Goal (STG) Pt to be independent and compliant with an appropriate HEP STG Duration 05/05/20 Assessment Summary Assessment Pt walking better today, no foot scuffing, tolerated treatment very well, showed improvement in all balance challenges. Physical Therapy Plan Frequency and Duration Frequency of Treatment 2x/Week Duration of Treatment 10 weeks Plan of Care Start Date 04/05/20 Plan of Care End Date 06/14/20 Therapeutic Interventions Therapeutic Interventions Home Exercise Program,Joint Mobilizations,Manual Therapy, Neuromuscular Re-education, Patient/Caregiver Education, Self-Care/Home Management,Soft Tissue Mobilization, Therapeutic Activities, Therapeutic Exercises Modalities Cold Pack/Ice Massage,Electric Stimulation,Hot Packs, Ultrasound Next Visit Focus/Plan Next Note Type Treatment Note Next Visit Plan LE strengthening, balance training
--- NOTE | 2020-04-14 10:35 | PT.OTN ---
Current Diagnoses Lumbago with sciatica, right side (04/14/20) Muscle weakness (generalized) (04/14/20) Other abnormalities of gait and mobility (04/14/20) Other specified postprocedural states (04/14/20) Physical Therapy Treatment Note PT-OP-A Visit Information Start: 04/05/20 17:35 Freq: Status: Active Protocol: Document 04/14/20 09:45 DCW (Rec: 04/14/20 10:35 DCW [id number]) Out-Patient Physical Therapy Visit Information Visit Information Visit Type Treatment Note Visit Start Time 09:45 Visit Stop Time 10:30 Total Visit Minutes 45 Visit Number 4 Number of HVAC INSTALLATION TECHNICIAN Visits 0 Evaluation Information Evaluation Date 04/05/20 PT-OP-B Current Condition Start: 04/05/20 17:35 Freq: Status: Active Protocol: Document 04/05/20 16:45 DCW (Rec: 04/05/20 17:50 DCW [id number]) Current Condition History of Current Condition Onset Date 02/10/20 Current Complaints Weakness, imbalance following microdiscectomy History of Current Condition Pt is a 79 year old female presenting three months s/p L3 -4 Microdiscectomy. Pt notes she was walking up the stairs on or around 02/05/20, and her right leg just suddenly gave out. She had to crawl back up the stairs, call her neighbor for help, get her crutches, and she then suffered another fall on the stairs because her leg was still not working. After a few trips to the ED, she was found to have a fairly large L3-4 disc protrusion with severe L3-4 nerve root impingement. Pt was scheduled for surgery the next day, and on 02/10/20, had a microdiscectomy. Pt reports she has improved quite a bit since the surgery, her sensation has improved, she no longer has any tingling, and she has returned to walking ~2 miles daily, however she feels she still has noticeable weakness in her right leg, especially when fatigued, her balance has declined, and she will occasionally catch her right foot when walking. Prior Treatments and Tests Pt has been seen at this facility for various injuries over a number of years, including PATTI. Treatment Goals Patient/Caregiver Goals I want to be able to trust my balance again, and I want to learn some protective measures to make sure something like this doesn't happen again. PT-OP-C Subjective Start: 04/05/20 17:35 Freq: Status: Active Protocol: Document 04/14/20 09:45 DCW (Rec: 04/14/20 10:35 DCW [id number]) OP-PT Subjective Patient Comments Patient Comments I'm better. My legs aren't as swollen, and I'm thinking more clearly. PT-OP-D Balance Start: 04/05/20 17:35 Freq: Status: Active Protocol: Document 04/05/20 16:45 DCW (Rec: 04/05/20 17:56 DCW [id number]) OP-PT Balance Assessment Sitting Balance Static Sitting Balance Ability Normal Dynamic Sitting Balance Ability Normal Standing Balance Static Standing Balance Ability Good Dynamic Standing Balance Ability Normal Balance Tests Calrk Balance Test Clark Balance Test Score 50/56 Clark Impairment Rating 1 to 19% Impaired (Score 45-55 ) mCTSIB mCTSIB Position 1 30 sec mCTSIB Position 2 30 sec mCTSIB Position 3 30 sec mCTSIB Position 4 30 sec Single Limb Standing Single Limb- Right 17 sec Single Limb- Left 7 sec Tandem Tandem Standing L forward: 30 seconds, R forward: 5 seconds Shaffer Fall Scale Copyright Permission PT-OP-E Functional Tests Start: 04/05/20 17:35 Freq: Status: Active Protocol: Document 04/05/20 16:45 DCW (Rec: 04/05/20 17:56 DCW [id number]) Functional Tests Timed Up and Go (TUG) Score 8.52 seconds Comments 3-trial average (9.45, 8.24, 7 .87) PT-OP-M Strength Start: 04/05/20 17:35 Freq: Status: Active Protocol: Document 04/05/20 16:45 DCW (Rec: 04/05/20 17:56 DCW [id number]) Hip Strength Hip Manual Muscle Testing Right Flexion (L2) 3+ Fair+ Extension (S1) 4+ Good+ Abduction 4- Good- Adduction 4- Good- External Rotation 4- Good- Internal Rotation 4 Good Left Flexion (L2) 4 Good Extension (S1) 4+ Good+ Abduction 4 Good Adduction 4+ Good+ External Rotation 4 Good Internal Rotation 4+ Good+ Knee Strength Knee Manual Muscle Testing Right Flexion (S2) 4 Good Extension (L3) 4- Good- Left Flexion (S2) 4+ Good+ Extension (L3) 4+ Good+ Ankle/Foot Strength Ankle and Foot Manual Muscle Testing Right Dorsiflexion (L4) 4- Good- Plantarflexion (S1) 4+ Good+ Left Dorsiflexion (L4) 4 Good Plantarflexion (S1) 4+ Good+ PT-OP-Q Treatments Start: 04/05/20 17:35 Freq: Status: Active Protocol: Document 04/14/20 09:45 DCW (Rec: 04/14/20 10:35 DCW [id number]) Gym Equipment Shuttle Recovery Bilateral Heel Raises Resistance 50# Unilateral Squats Resistance 37# Shuttle Recovery Platform Stable Bilateral Squats Resistance 75# Shuttle Recovery Platform Stable Shuttle Balance Red Details Wide RENATE, Staggered Therapeutic Exercises Standing Exercises 2 Standing Exercise Name Hip Abduction Side bilateral Resistance Lv 2 Equipment Used T-band 1 Standing Exercise Name Hip Extension Side bilateral Resistance Lv 2 Equipment Used T-band Other Exercises 1 Other Exercise Name Step-up with opposite leg march Side bilateral Resistance 5# Equipment Used 6 step Resisted Ambulation Other Exercise Name Resisted side-stepping, Forward, Backward Resistance Yellow Equipment Used T-band Manual Therapy Treatment Soft Tissue Mobilization QL Body Location B QL Mobilization Type Sustained Pressure,Trigger Point Release Intensity/Depth Moderate Piriformis Body Location Piriformis Mobilization Type Strumming,Sustained Pressure Intensity/Depth Deep PT-OP-T Assessment and Plan Start: 04/05/20 17:35 Freq: Status: Active Protocol: Document 04/14/20 09:45 DCW (Rec: 04/14/20 10:35 DCW [id number]) Physical Therapy Assessment Impairments Impairments Balance,Functional Activities, Functional Mobility,Pain, Strength Goals Four Impairment Pt shows LE weakness on right LE, especially hip flexion and add/abduction Web User Experience Strategist Goal (LTG) Pt to present with a gross LE MMT of 4+/5 LTG Duration 06/05/20 Three Impairment Pt experiencing decreased balance when donning socks Web User Experience Strategist Goal (LTG) Pt to improve SLS to 20 seconds bilaterally LTG Duration 06/05/20 Two Impairment Pt exhibits substantial decrease in tandem stance with R foot fwd=5 vs 30 Web User Experience Strategist Goal (LTG) Pt to hold tandem stance for 45 seconds both with left and with right foot forward LTG Duration 06/05/20 One Impairment Pt does not have an appropriate home exercise program Short Term Goal (STG) Pt to be independent and compliant with an appropriate HEP STG Duration 05/05/20 Assessment Summary Assessment Pt continues to improve, had improved tone after STM to QL, piriformis, moving much better overall. Physical Therapy Plan Frequency and Duration Frequency of Treatment 2x/Week Duration of Treatment 10 weeks Plan of Care Start Date 04/05/20 Plan of Care End Date 06/14/20 Therapeutic Interventions Therapeutic Interventions Home Exercise Program,Joint Mobilizations,Manual Therapy, Neuromuscular Re-education, Patient/Caregiver Education, Self-Care/Home Management,Soft Tissue Mobilization, Therapeutic Activities, Therapeutic Exercises Modalities Cold Pack/Ice Massage,Electric Stimulation,Hot Packs, Ultrasound Next Visit Focus/Plan Next Note Type Treatment Note Next Visit Plan LE strengthening, balance training
--- NOTE | 2020-04-19 16:48 | PT.OTN ---
Current Diagnoses Lumbago with sciatica, right side (04/19/20) Muscle weakness (generalized) (04/19/20) Other abnormalities of gait and mobility (04/19/20) Other specified postprocedural states (04/19/20) Physical Therapy Treatment Note PT-OP-A Visit Information Start: 04/05/20 17:35 Freq: Status: Active Protocol: Document 04/19/20 16:00 DCW (Rec: 04/19/20 16:47 DCW [id number]) Out-Patient Physical Therapy Visit Information Visit Information Visit Type Treatment Note Visit Start Time 16:00 Visit Stop Time 16:45 Total Visit Minutes 45 Visit Number 5 Number of DRILL SETUP OPERATOR Visits 0 Evaluation Information Evaluation Date 04/05/20 PT-OP-B Current Condition Start: 04/05/20 17:35 Freq: Status: Active Protocol: Document 04/05/20 16:45 DCW (Rec: 04/05/20 17:50 DCW [id number]) Current Condition History of Current Condition Onset Date 02/10/20 Current Complaints Weakness, imbalance following microdiscectomy History of Current Condition Pt is a 79 year old female presenting three months s/p L3 -4 Microdiscectomy. Pt notes she was walking up the stairs on or around 02/05/20, and her right leg just suddenly gave out. She had to crawl back up the stairs, call her neighbor for help, get her crutches, and she then suffered another fall on the stairs because her leg was still not working. After a few trips to the ED, she was found to have a fairly large L3-4 disc protrusion with severe L3-4 nerve root impingement. Pt was scheduled for surgery the next day, and on 02/10/20, had a microdiscectomy. Pt reports she has improved quite a bit since the surgery, her sensation has improved, she no longer has any tingling, and she has returned to walking ~2 miles daily, however she feels she still has noticeable weakness in her right leg, especially when fatigued, her balance has declined, and she will occasionally catch her right foot when walking. Prior Treatments and Tests Pt has been seen at this facility for various injuries over a number of years, including PATTI. Treatment Goals Patient/Caregiver Goals I want to be able to trust my balance again, and I want to learn some protective measures to make sure something like this doesn't happen again. PT-OP-C Subjective Start: 04/05/20 17:35 Freq: Status: Active Protocol: Document 04/19/20 16:00 DCW (Rec: 04/19/20 16:47 DCW [id number]) OP-PT Subjective Patient Comments Patient Comments Whatever you did really fixed my back problem. PT-OP-D Balance Start: 04/05/20 17:35 Freq: Status: Active Protocol: Document 04/05/20 16:45 DCW (Rec: 04/05/20 17:56 DCW [id number]) OP-PT Balance Assessment Sitting Balance Static Sitting Balance Ability Normal Dynamic Sitting Balance Ability Normal Standing Balance Static Standing Balance Ability Good Dynamic Standing Balance Ability Normal Balance Tests Clark Balance Test Clark Balance Test Score 50/56 Clark Impairment Rating 1 to 19% Impaired (Score 45-55 ) mCTSIB mCTSIB Position 1 30 sec mCTSIB Position 2 30 sec mCTSIB Position 3 30 sec mCTSIB Position 4 30 sec Single Limb Standing Single Limb- Right 17 sec Single Limb- Left 7 sec Tandem Tandem Standing L forward: 30 seconds, R forward: 5 seconds Shaffer Fall Scale Copyright Permission PT-OP-E Functional Tests Start: 04/05/20 17:35 Freq: Status: Active Protocol: Document 04/05/20 16:45 DCW (Rec: 04/05/20 17:56 DCW [id number]) Functional Tests Timed Up and Go (TUG) Score 8.52 seconds Comments 3-trial average (9.45, 8.24, 7 .87) PT-OP-M Strength Start: 04/05/20 17:35 Freq: Status: Active Protocol: Document 04/05/20 16:45 DCW (Rec: 04/05/20 17:56 DCW [id number]) Hip Strength Hip Manual Muscle Testing Right Flexion (L2) 3+ Fair+ Extension (S1) 4+ Good+ Abduction 4- Good- Adduction 4- Good- External Rotation 4- Good- Internal Rotation 4 Good Left Flexion (L2) 4 Good Extension (S1) 4+ Good+ Abduction 4 Good Adduction 4+ Good+ External Rotation 4 Good Internal Rotation 4+ Good+ Knee Strength Knee Manual Muscle Testing Right Flexion (S2) 4 Good Extension (L3) 4- Good- Left Flexion (S2) 4+ Good+ Extension (L3) 4+ Good+ Ankle/Foot Strength Ankle and Foot Manual Muscle Testing Right Dorsiflexion (L4) 4- Good- Plantarflexion (S1) 4+ Good+ Left Dorsiflexion (L4) 4 Good Plantarflexion (S1) 4+ Good+ PT-OP-Q Treatments Start: 04/05/20 17:35 Freq: Status: Active Protocol: Document 04/19/20 16:00 DCW (Rec: 04/19/20 16:47 DCW [id number]) Gym Equipment Shuttle Recovery Bilateral Heel Raises Resistance 50# Unilateral Squats Resistance 37# Shuttle Recovery Platform Stable Bilateral Squats Resistance 75# Shuttle Recovery Platform Stable Shuttle Balance Red Details Wide RENATE, Staggered Therapeutic Exercises Standing Exercises 2 Standing Exercise Name Hip Abduction Side bilateral Resistance Lv 2 Equipment Used T-band 1 Standing Exercise Name Hip Extension Side bilateral Resistance Lv 2 Equipment Used T-band Other Exercises 1 Other Exercise Name Step-up with opposite leg march Side bilateral Resistance 5# Equipment Used 4 step Manual Therapy Treatment Soft Tissue Mobilization QL Body Location B QL Mobilization Type Sustained Pressure,Trigger Point Release Intensity/Depth Moderate Piriformis Body Location Piriformis Mobilization Type Strumming,Sustained Pressure Intensity/Depth Deep Neuro Re-Education Treatment Balance Activities 1 Details Tandem Ambulation PT-OP-T Assessment and Plan Start: 04/05/20 17:35 Freq: Status: Active Protocol: Document 04/19/20 16:00 DCW (Rec: 04/19/20 16:47 DCW [id number]) Physical Therapy Assessment Impairments Impairments Balance,Functional Activities, Functional Mobility,Pain, Strength Goals Four Impairment Pt shows LE weakness on right LE, especially hip flexion and add/abduction Communication Clerk Goal (LTG) Pt to present with a gross LE MMT of 4+/5 LTG Duration 06/05/20 Three Impairment Pt experiencing decreased balance when donning socks Communication Clerk Goal (LTG) Pt to improve SLS to 20 seconds bilaterally LTG Duration 06/05/20 Two Impairment Pt exhibits substantial decrease in tandem stance with R foot fwd=5 vs 30 Penitentiary Goal (LTG) Pt to hold tandem stance for 45 seconds both with left and with right foot forward LTG Duration 06/05/20 One Impairment Pt does not have an appropriate home exercise program Short Term Goal (STG) Pt to be independent and compliant with an appropriate HEP STG Duration 05/05/20 Assessment Summary Assessment Pt noting subjective improvement, feeling much more stable with mobility and ambulation. Physical Therapy Plan Frequency and Duration Frequency of Treatment 2x/Week Duration of Treatment 10 weeks Plan of Care Start Date 04/05/20 Plan of Care End Date 06/14/20 Therapeutic Interventions Therapeutic Interventions Home Exercise Program,Joint Mobilizations,Manual Therapy, Neuromuscular Re-education, Patient/Caregiver Education, Self-Care/Home Management,Soft Tissue Mobilization, Therapeutic Activities, Therapeutic Exercises Modalities Cold Pack/Ice Massage,Electric Stimulation,Hot Packs, Ultrasound Next Visit Focus/Plan Next Note Type Treatment Note Next Visit Plan LE strengthening, balance training
--- NOTE | 2020-04-21 17:42 | PT.OPDS ---
Current Diagnoses Lumbago with sciatica, right side (04/21/20) Muscle weakness (generalized) (04/21/20) Other abnormalities of gait and mobility (04/21/20) Other specified postprocedural states (04/21/20) Visit Care Team Role Provider Type CARL Santana Family Provider Advanced Special Investigation Unit Investigator Primary Care Provider Specialty: Family Practice Address: [address] [place] [address], [facility] [place], [address] Email: [email or web address] Attending Provider Physician Referring Provider Specialty: Orthopedic Surgery Address: [address] [place] [address], [place], [address] Email: [email or web address] Visit Number Visit Number 6 Discharge Summary PT-OP-B Current Condition Start: 04/05/20 17:35 Freq: Status: Active Protocol: Document 04/05/20 16:45 DCW (Rec: 04/05/20 17:50 DCW [id number]) Current Condition History of Current Condition Onset Date 02/10/20 Current Complaints Weakness, imbalance following microdiscectomy History of Current Condition Pt is a 79 year old female presenting three months s/p L3 -4 Microdiscectomy. Pt notes she was walking up the stairs on or around 02/05/20, and her right leg just suddenly gave out. She had to crawl back up the stairs, call her neighbor for help, get her crutches, and she then suffered another fall on the stairs because her leg was still not working. After a few trips to the ED, she was found to have a fairly large L3-4 disc protrusion with severe L3-4 nerve root impingement. Pt was scheduled for surgery the next day, and on 02/10/20, had a microdiscectomy. Pt reports she has improved quite a bit since the surgery, her sensation has improved, she no longer has any tingling, and she has returned to walking ~2 miles daily, however she feels she still has noticeable weakness in her right leg, especially when fatigued, her balance has declined, and she will occasionally catch her right foot when walking. Prior Treatments and Tests Pt has been seen at this facility for various injuries over a number of years, including PATTI. Treatment Goals Patient/Caregiver Goals I want to be able to trust my balance again, and I want to learn some protective measures to make sure something like this doesn't happen again. PT-OP-C Subjective Start: 04/05/20 17:35 Freq: Status: Active Protocol: Document 04/21/20 16:45 DCW (Rec: 04/21/20 17:41 DCW [id number]) OP-PT Subjective Patient Comments Patient Comments Pt reports she feels like she s doing very well right now. PT-OP-D Balance Start: 04/05/20 17:35 Freq: Status: Active Protocol: Document 04/21/20 16:45 DCW (Rec: 04/21/20 17:10 DCW [id number]) Balance Tests Single Limb Standing Single Limb- Right 17 sec Single Limb- Left 12 sec Tandem Tandem Standing L forward: 40 seconds, R forward: 40 seconds PT-OP-E Functional Tests Start: 04/05/20 17:35 Freq: Status: Active Protocol: Document 04/21/20 16:45 DCW (Rec: 04/21/20 17:10 DCW [id number]) Functional Tests Timed Up and Go (TUG) Score 8.23 seconds Comments 3-trial average (8.66, 8.41, 7 .62) PT-OP-M Strength Start: 04/05/20 17:35 Freq: Status: Active Protocol: Document 04/21/20 16:45 DCW (Rec: 04/21/20 17:10 DCW [id number]) Hip Strength Hip Manual Muscle Testing Right Flexion (L2) 4 Good Extension (S1) 4+ Good+ Abduction 4 Good Adduction 4 Good External Rotation 4- Good- Internal Rotation 4 Good Left Flexion (L2) 4 Good Extension (S1) 4+ Good+ Abduction 4 Good Adduction 4+ Good+ External Rotation 4 Good Internal Rotation 4+ Good+ Knee Strength Knee Manual Muscle Testing Right Flexion (S2) 4+ Good+ Extension (L3) 4+ Good+ Left Flexion (S2) 4+ Good+ Extension (L3) 4+ Good+ Ankle/Foot Strength Ankle and Foot Manual Muscle Testing Right Dorsiflexion (L4) 4+ Good+ Plantarflexion (S1) 4+ Good+ Left Dorsiflexion (L4) 4+ Good+ Plantarflexion (S1) 4+ Good+ PT-OP-T Assessment and Plan Start: 04/05/20 17:35 Freq: Status: Active Protocol: Document 04/21/20 16:45 DCW (Rec: 04/21/20 17:41 DCW [id number]) Physical Therapy Assessment Impairments Impairments Balance,Functional Activities, Functional Mobility,Pain, Strength Goals Four Impairment Pt shows LE weakness on right LE, especially hip flexion and add/abduction Long-Term Goal (LTG) Pt to present with a gross LE MMT of 4+/5 LTG Duration 06/05/20 - Improving Three Impairment Pt experiencing decreased balance when donning socks Long-Term Goal (LTG) Pt to improve SLS to 20 seconds bilaterally LTG Duration 06/05/20 - Improving Two Impairment Pt exhibits substantial decrease in tandem stance with R foot fwd=5 vs 30 Long-Term Goal (LTG) Pt to hold tandem stance for 45 seconds both with left and with right foot forward LTG Duration 06/05/20 - Improving One Impairment Pt does not have an appropriate home exercise program Short Term Goal (STG) Pt to be independent and compliant with an appropriate HEP STG Duration Met Assessment Summary Assessment Pt showing great improvement in all areas. While she has not met her goals per se, she is greatly approaching them, and does not appear to be having any lingering pain or difficulty in any areas. Pt agreeable to discharge at this time, no further skilled inpatient therapy indicated. Physical Therapy Plan Frequency and Duration Frequency of Treatment 2x/Week Duration of Treatment 10 weeks Plan of Care Start Date 04/05/20 Plan of Care End Date 06/14/20 Therapeutic Interventions Therapeutic Interventions Home Exercise Program,Joint Mobilizations,Manual Therapy, Neuromuscular Re-education, Patient/Caregiver Education, Self-Care/Home Management,Soft Tissue Mobilization, Therapeutic Activities, Therapeutic Exercises Modalities Cold Pack/Ice Massage,Electric Stimulation,Hot Packs, Ultrasound Next Visit Focus/Plan Next Note Type Treatment Note Next Visit Plan LE strengthening, balance training
--- NOTE | 2020-04-21 17:43 | PT.OPDS ---
Current Diagnoses Lumbago with sciatica, right side (04/21/20) Muscle weakness (generalized) (04/21/20) Other abnormalities of gait and mobility (04/21/20) Other specified postprocedural states (04/21/20) Visit Care Team Role Provider Type CARL Santana Family Provider Advanced Scrubber Machine Tender Primary Care Provider Specialty: Family Practice Address: [address] [place] [address], [facility] [[email or web address] [place], [address] Email: [email or web address] Attending Provider Physician Referring Provider Specialty: Orthopedic Surgery Address: [address] [place] [address], [place], [address] Email: [email or web address] Visit Number Visit Number 6 Discharge Summary PT-OP-B Current Condition Start: 04/05/20 17:35 Freq: Status: Active Protocol: Document 04/05/20 16:45 DCW (Rec: 04/05/20 17:50 DCW [id number]) Current Condition History of Current Condition Onset Date 02/10/20 Current Complaints Weakness, imbalance following microdiscectomy History of Current Condition Pt is a 79 year old female presenting three months s/p L3 -4 Microdiscectomy. Pt notes she was walking up the stairs on or around 02/05/20, and her right leg just suddenly gave out. She had to crawl back up the stairs, call her neighbor for help, get her crutches, and she then suffered another fall on the stairs because her leg was still not working. After a few trips to the ED, she was found to have a fairly large L3-4 disc protrusion with severe L3-4 nerve root impingement. Pt was scheduled for surgery the next day, and on 02/10/20, had a microdiscectomy. Pt reports she has improved quite a bit since the surgery, her sensation has improved, she no longer has any tingling, and she has returned to walking ~2 miles daily, however she feels she still has noticeable weakness in her right leg, especially when fatigued, her balance has declined, and she will occasionally catch her right foot when walking. Prior Treatments and Tests Pt has been seen at this facility for various injuries over a number of years, including PATTI. Treatment Goals Patient/Caregiver Goals I want to be able to trust my balance again, and I want to learn some protective measures to make sure something like this doesn't happen again. PT-OP-C Subjective Start: 04/05/20 17:35 Freq: Status: Active Protocol: Document 04/21/20 16:45 DCW (Rec: 04/21/20 17:41 DCW [id number]) OP-PT Subjective Patient Comments Patient Comments Pt reports she feels like she s doing very well right now. PT-OP-D Balance Start: 04/05/20 17:35 Freq: Status: Active Protocol: Document 04/21/20 16:45 DCW (Rec: 04/21/20 17:10 DCW [id number]) Balance Tests Single Limb Standing Single Limb- Right 17 sec Single Limb- Left 12 sec Tandem Tandem Standing L forward: 40 seconds, R forward: 40 seconds PT-OP-E Functional Tests Start: 04/05/20 17:35 Freq: Status: Active Protocol: Document 04/21/20 16:45 DCW (Rec: 04/21/20 17:10 DCW [id number]) Functional Tests Timed Up and Go (TUG) Score 8.23 seconds Comments 3-trial average (8.66, 8.41, 7 .62) PT-OP-M Strength Start: 04/05/20 17:35 Freq: Status: Active Protocol: Document 04/21/20 16:45 DCW (Rec: 04/21/20 17:10 DCW [id number]) Hip Strength Hip Manual Muscle Testing Right Flexion (L2) 4 Good Extension (S1) 4+ Good+ Abduction 4 Good Adduction 4 Good External Rotation 4- Good- Internal Rotation 4 Good Left Flexion (L2) 4 Good Extension (S1) 4+ Good+ Abduction 4 Good Adduction 4+ Good+ External Rotation 4 Good Internal Rotation 4+ Good+ Knee Strength Knee Manual Muscle Testing Right Flexion (S2) 4+ Good+ Extension (L3) 4+ Good+ Left Flexion (S2) 4+ Good+ Extension (L3) 4+ Good+ Ankle/Foot Strength Ankle and Foot Manual Muscle Testing Right Dorsiflexion (L4) 4+ Good+ Plantarflexion (S1) 4+ Good+ Left Dorsiflexion (L4) 4+ Good+ Plantarflexion (S1) 4+ Good+ PT-OP-T Assessment and Plan Start: 04/05/20 17:35 Freq: Status: Active Protocol: Document 04/21/20 16:45 DCW (Rec: 04/21/20 17:41 DCW [id number]) Physical Therapy Assessment Impairments Impairments Balance,Functional Activities, Functional Mobility,Pain, Strength Goals Four Impairment Pt shows LE weakness on right LE, especially hip flexion and add/abduction Shelter Goal (LTG) Pt to present with a gross LE MMT of 4+/5 LTG Duration 06/05/20 - Improving Three Impairment Pt experiencing decreased balance when donning socks Shelter Goal (LTG) Pt to improve SLS to 20 seconds bilaterally LTG Duration 06/05/20 - Improving Two Impairment Pt exhibits substantial decrease in tandem stance with R foot fwd=5 vs 30 Shelter Goal (LTG) Pt to hold tandem stance for 45 seconds both with left and with right foot forward LTG Duration 06/05/20 - Improving One Impairment Pt does not have an appropriate home exercise program Short Term Goal (STG) Pt to be independent and compliant with an appropriate HEP STG Duration Met Assessment Summary Assessment Pt showing great improvement in all areas. While she has not met her goals per se, she is greatly approaching them, and does not appear to be having any lingering pain or difficulty in any areas. Pt agreeable to discharge at this time, no further skilled inpatient therapy indicated. Physical Therapy Plan Frequency and Duration Frequency of Treatment 2x/Week Duration of Treatment 10 weeks Plan of Care Start Date 04/05/20 Plan of Care End Date 06/14/20 Therapeutic Interventions Therapeutic Interventions Home Exercise Program,Joint Mobilizations,Manual Therapy, Neuromuscular Re-education, Patient/Caregiver Education, Self-Care/Home Management,Soft Tissue Mobilization, Therapeutic Activities, Therapeutic Exercises Modalities Cold Pack/Ice Massage,Electric Stimulation,Hot Packs, Ultrasound Discharge Physical Therapy Discharge Comments Pt approaching all goals, no further skilled therapy indicated Next Visit Focus/Plan Next Note Type Discharge Summary
== END 2020-04-29 08:51 | disposition home or self-care (01) ==
LOC: PHYS 16:45
PROVIDERS: Family Provider Internal Medicine; PCP Internal Medicine; Referring Provider Orthopaedic Surgery Orthopaedic Surgery of the Spine; Visit Provider Orthopaedic Surgery Orthopaedic Surgery of the Spine
DX: Z98.890 Other specified postprocedural states (principal); M62.81 Muscle weakness (generalized); M54.41 Lumbago with sciatica, right side; R26.89 Other abnormalities of gait and mobility
CPT/HCPCS: 97110; 97112; 97140; 97161; 97530

== ENCOUNTER → 2020-07-01 09:48 | Outpatient (CLI) | payer OTHER, MEDICARE, SELFPAY ==
[2020-07-01] MEDS: COVID-19 VACC #1, MRNA(MOD) 100 MCG/0.5 ML VIAL IM (09:52)
== END ==
PROVIDERS: Family Provider Internal Medicine; PCP Internal Medicine; Visit Provider Internal Medicine
DX: Z23 Encounter for immunization (principal)
CPT/HCPCS: 0011A; 91301

== ENCOUNTER → 2020-07-29 09:50 | Outpatient (CLI) | payer OTHER, MEDICARE, SELFPAY ==
[2020-07-29] MEDS: COVID-19 VACC #2, MRNA(MOD) 100 MCG/0.5 ML VIAL IM (09:55)
== END ==
PROVIDERS: Family Provider Internal Medicine; PCP Internal Medicine; Visit Provider Internal Medicine
DX: Z23 Encounter for immunization (principal)
CPT/HCPCS: 0012A; 91301

== ENCOUNTER → 2021-06-13 14:11 | Outpatient (CLI) | payer OTHER, MEDICARE, SELFPAY ==
--- NOTE | 2021-06-13 | DI.US.S_ITS ---
LIMITED ULTRASOUND OF RIGHT BREAST AND AXILLA: 06/13/2021 CLINICAL: Focal right breast and axilla pain. Comparison is made to exam dated: 10/04/2016 breast MRI - [facility]. Real-time ultrasound of the right breast 9-10 o'clock, and axilla regions was performed. Willard scale images of the real-time examination were reviewed. No significant abnormalities were seen sonographically in the right breast or the right axilla in the region of pain. Left breast implant is noted. IMPRESSION: BENIGN There is no sonographic evidence of malignancy in the region of pain. Exam findings were conveyed to the patient. Patient is advised to monitor for significant change. Clinical follow-up as needed. The patient would benefit from mammogram which is commonly preformed in the setting of breast implants. The patient expresses concern for implant rupture with mammogram compression. This could be more of a concern in older implants or implants with prior defects. Breast MRI could also be considered for further evaluation of the region of pain and implant integrity. This exam was interpreted at Station ID: [id number]. Electronically Signed By: Christian Davies M.D. [facility]/:06/13/2021 14:58:14 letter sent: Normal Exam Ultrasound BI-RADS: 2 Benign
== END ==
PROVIDERS: Family Provider Internal Medicine; PCP Internal Medicine; Referring Provider Internal Medicine; Visit Provider Internal Medicine
DX: R59.0 Localized enlarged lymph nodes (principal); N64.4 Mastodynia
CPT/HCPCS: 76642

== ENCOUNTER → 2022-08-22 09:41 | Outpatient (CLI) | payer MEDICARE, OTHER, SELFPAY ==
--- NOTE | 2022-08-22 | DI.RAD.S_ITS ---
PROCEDURE: XR SHOULDER RT MIN 2V INDICATIONS: SHOULDER PAIN TECHNIQUE: 3 views of the shoulder were acquired. COMPARISON: None. FINDINGS: Bones: No fractures or dislocations. No suspicious bony lesions. Visualized ribs appear intact. Moderate to severe acromioclavicular as well as severe glenohumeral degenerative narrowing. Subchondral sclerosis as well as what appears to be small subchondral cysts are noted at the glenohumeral joint. Soft tissues: No suspicious soft tissue calcifications. 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 Dictated by: Elinor Moser M.D. on 08/22/2022 at 16:45 Approved by: Elinor Moser M.D. on 08/22/2022 at 16:47
--- NOTE | 2022-08-22 | DI.RAD.S_ITS ---
PROCEDURE: XR CERVICAL SPINE 2V OR 3V INDICATIONS: NECK PAIN TECHNIQUE: 3 view(s) of the cervical spine were acquired. COMPARISON: None. FINDINGS: Bones: No fractures or dislocations to the C7-T1 level. The lateral masses of C1 appear intact on the odontoid view. No suspicious bony lesions. Severe degenerative disc space narrowing is present from C3-4 through C6-7. Anterior osteophytes are present. Prominent multilevel uncovertebral arthropathy is present. Soft tissues: No prevertebral soft tissue swelling. IMPRESSION: Severe multilevel arthritic change. Dictated by: Elinor Moser M.D. on 08/22/2022 at 16:44 Approved by: Elinor Moser M.D. on 08/22/2022 at 16:45
== END ==
PROVIDERS: Family Provider Internal Medicine; PCP Internal Medicine; Referring Provider Internal Medicine; Visit Provider Internal Medicine
DX: M54.12 Radiculopathy, cervical region (principal); M25.511 Pain in right shoulder
CPT/HCPCS: 72040; 73030

== ENCOUNTER → 2023-01-15 12:35 | Outpatient (CLI) | payer MEDICARE, OTHER, SELFPAY ==
--- NOTE | 2023-01-15 12:37 | DI.MRI.S_ITS ---
BREAST MRI OF BOTH BREASTS: 01/15/2023 CLINICAL: Status post bilateral mastectomy with reconstruction. PROCEDURE: MR BREAST BI WO/W CON INDICATIONS: follow up S/P Bilateral Mastectomy w/ reconstruction TECHNIQUE: The patient was placed prone in a dedicated breast imaging coil. Precontrast axial STIR and 3D FLASH without fat saturation sequences were obtained. Both before and after bolus injection of contrast, sequential 1-minute axial 3D FLASH with fat saturation sequences for 3 time points, with subtraction images and maximum intensity projections (MIP's) generated. Delayed sagittal FLASH images with fat saturation were also obtained. CONTRAST: 20 cc ProHance IV contrast. Computer-aided detection, including computer algorithm analysis of MRI image data for lesion detection and characterization, pharmacokinetic analysis, with further physician review for interpretation, was performed. COMPARISON: [facility], CT, PE STUDY (CTA CHEST), 10/14/2014, 9:52. [facility], MR, BREAST BILATERAL, 04/14/2007, 8:26. [facility], US, US BREAST RT LIMITED, 06/13/2021, 14:21. [facility], MR, BILATERAL BREAST W FINDINGS: Image quality: Excellent. There is mild background parenchymal enhancement. Right breast: No mass or suspicious enhancement. Retropectoral silicone implant is intact. Left breast: No mass or suspicious enhancement. Retropectoral silicone implant is intact. Miscellaneous: No enlarged lymph nodes. IMPRESSION: BENIGN No mass or suspicious enhancement. Implants are intact. No enlarged lymph nodes. BIRADS 2 COMMENT: The imaging literature indicates that a negative contrast breast MRI examination has a high sensitivity and a moderate specificity for detecting and excluding invasive carcinomas to a detection threshold of 3-5 mm; nonetheless, appropriate clinical and mammographic follow-up are recommended. MRI is not sensitive for detecting DCIS (ductal carcinoma in situ) and may not detect large invasive neoplasms that show only minimal enhancement such as mucinous carcinoma. If there are suspicious calcifications or clinically worrisome palpable masses, then biopsy should still be considered. Invasive neoplasms can be hidden by co-existent and benign enhancement caused by mastitis, hormone therapy effects, radiation therapy, , and recent biopsy or surgery. False positive examinations can occur in a number of circumstances, including breasts that have recently been subject to invasive procedures and those that contain atypical ductal hyperplasia, hormonally stimulated glandular tissue, fat necrosis, or radial scars. Dictated by: Christian Davies M.D. on 01/15/2023 at 14:54 This exam was interpreted at Station ID: [id number]. Electronically Signed By: Christian Davies M.D. [facility]/:01/15/2023 15:22:29 letter sent: Clinical Evaluation ACR BI-RADS Category 2: Benign Finding(s) [id number]
== END ==
PROVIDERS: Family Provider Internal Medicine; PCP Internal Medicine; Referring Provider Obstetrics & Gynecology; Visit Provider Obstetrics & Gynecology
DX: Z98.890 Other specified postprocedural states (principal); Z98.82 Breast implant status; Z85.3 Personal history of malignant neoplasm of breast; Z08 Encounter for follow-up examination after completed treatment for malignant neoplasm
CPT/HCPCS: 77049; A9579

== ENCOUNTER → 2023-03-15 11:39 | Outpatient (CLI) | payer MEDICARE, OTHER, SELFPAY ==
--- NOTE | 2023-03-15 | DI.RAD.S_ITS ---
Bone Density Report Name: SHERRY QUESADA Age: 82 Sex: Female Ethnicity: White Date of : 1940 Indication: postmenopausal osteoporosis; Referring Provider: JUVENAL SAGE Study: Bone densitometry was performed. Exam Date: March 15, 2023 Accession number: [id number] Bone Density: Region BMD T-score Z-score Classification AP Spine(L2, L3, L4) 0.957 -1.1 1.7 Osteopenia Femoral Neck (Left) 0.546 -2.7 -0.4 Osteoporosis Total Hip (Left) 0.598 -2.8 -0.7 Osteoporosis Total Forearm (Left) 0.476 -1.9 1.2 Osteopenia 1/3 Forearm (Left) 0.572 -2.0 1.2 Osteopenia UD Forearm (Left) 0.371 -1.2 1.0 Osteopenia World Health Organization criteria for BMD impression classify patients as: Normal (T-score at or above -1.0), Osteopenia (T-score between -1.0 and -2.5), or Osteoporosis (T-score at or below -2.5). 10-year Fracture Risk: FRAX not reported because: Some T-score for Spine Total or Hip Total or Femoral Neck at or below -2.5 Previous Exams: -- Region Exam Age BMD T-score BMD Change BMD Change Date g/cm2 vs Baseline vs Previous -- AP Spine (L2-L4) 03/15/2023 82 0.957 -1.1 -0.034 (-3.5%)# -0.073 (-7.1%)# 01/30/2019 78 1.030 -0.4 0.039 (3.9%)* 0.025 (2.5%)* 12/01/2009 69 1.005 -0.7 0.014 (1.4%) 0.039 (4.1%)* 11/14/2007 67 0.966 -1.0 -0.026 (-2.6%)* -0.026 (-2.6%)* 10/10/2005 65 0.992 -0.8 Total Hip(Left) 03/15/2023 82 0.598 -2.8 -0.147 (-19.7%)# -0.043 (-6.6%)# 01/30/2019 78 0.641 -2.5 -0.104 (-14.0%)* -0.063 (-9.0%)* 12/01/2009 69 0.704 -1.9 -0.041 (-5.4%)* -0.037 (-5.0%)* 11/14/2007 67 0.741 -1.6 -0.004 (-0.5%) -0.004 (-0.5%) 10/10/2005 65 0.745 -1.6 -- *Denotes significance at 95% confidence level, LSC for AP Spine = 0.022 g/cm2, LSC for Total Hip = 0.027 g/cm2 Rate of change results reflect vertebral levels common to all scans # Denotes dissimilar scan types or analysis methods Impression: The patient has osteoporosis, based on the Left Total Hip T-score. No significant bone loss was observed. Discussion: INCREASED RISK OF FRACTURE. BONE DENSITY IS UNDESIRABLY LOW AT ONE OR MORE SKELETAL SITES, CONSISTENT WITH POSTMENOPAUSAL OSTEOPOROSIS. This patient's lowest T-score meets the World Health Organization's (WHO) criteria for osteoporosis at one or more sites (T-score -2.5 or below). In untreated patients, the risk of osteoporotic fracture increases approximately two-fold for each 1.0 SD decrease in T-score. Low bone density is not the only risk factor for fracture; also consider factors such as patient's age, frailty or poor health, risk of falling, risk of injury, previous osteoporotic fracture, family history of osteoporosis, cigarette smoking, low body weight, etc. Not everyone with low bone mineral density has osteoporosis; osteomalacia and other metabolic bone disorders should also be considered. Patients who have osteoporosis should be evaluated for specific diseases and conditions (secondary causes) that may cause or contribute to bone loss. The [place] [employer] Endocrinologists (AACE) and National Osteoporosis Foundation (NOF) recommend pharmacologic intervention for all postmenopausal women whose T-score is in this range. The patient should follow a healthful lifestyle (good nutrition with adequate calcium and vitamin D, and appropriate weight-bearing exercise). Follow-Up: Consider a repeat BMD and Vertebral Fracture Assessment (VFA) exam in 2 years or sooner if medically necessary, to reassess this patient's status. Reported by: ROMULO URBAN M.D. on 03/15/2023 12:18:00 PM.
== END ==
PROVIDERS: Family Provider Internal Medicine; PCP Internal Medicine; Referring Provider Internal Medicine; Visit Provider Internal Medicine
DX: M81.0 Age-related osteoporosis without current pathological fracture (principal); N95.1 Menopausal and female climacteric states; M85.89 Other specified disorders of bone density and structure, multiple sites
CPT/HCPCS: 77080; 77081

== ENCOUNTER 2024-01-07 08:16 | Day surgery (SDC) | payer MEDICARE, OTHER, SELFPAY ==
[2024-01-07] MEDS: LACTATED RINGERS 1,000 ML 42 ML IV (08:28)
[2024-01-07 08:40] VITALS: BP 157/78; PULSE 113; RESP 16; TEMP 36.7; O2SAT 97
--- NOTE | 2024-01-07 09:01 | P.HP_ITS ---
History of Present Illness History of Present Illness Date Patient Seen: 01/07/24 Time Patient Seen: 09:02 Date of Onset of Symptoms: 01/07/24 Chief complaint: Colonoscopy Narrative: 83-year-old woman here for diagnostic colonoscopy. Positive Cologuard test is a reason for her encounter today. She had a bout of ?food poisoning recently in his never felt quite the same. No visible blood per rectum unintentional weight loss. Family history unknown is adopted. [facility] Medical History (Updated 01/07/24 @ 09:04 by Geraldo Brennan MD) Depression (Unknown) Osteoarthritis (Unknown) Hypercholesterolemia (~2016) GERD (gastroesophageal reflux disease) (~2004) Muscle spasm (2011) Fractures (1999) Chronic back pain (2006) Mumps (Unknown) Measles (Unknown) Chickenpox (Unknown) Vertigo (1981) Bilateral tinnitus (Unknown) Cataracts, bilateral (2014) Abnormal Pap smear of cervix (~1986) Surgical History Status post hysterectomy with oophorectomy History of hip replacement History of total mastectomy Family History Family/Other Adopted Social History household members: none Smoking Status: Former smoker alcohol intake: current Meds Home Medications and Allergies Home Medications Medication Instructions Recorded Confirmed Type cholecalciferol (vitamin D3) 50 2,000 unit PO DAILY 12/18/17 01/07/24 History mcg (2,000 unit) tablet vitamin B complex 1 tab PO DAILY 12/18/17 01/07/24 History Tumeric 1 each PO .QDAY 12/19/17 01/07/24 History ascorbic acid (vitamin C) 500 mg 500 mg PO DAILY 02/09/20 01/07/24 History chewable tablet estradiol 0.01% (0.1 mg/gram) 1 g vaginal 3XW #42.5 grams 01/29/23 01/07/24 Rx vaginal cream sodium,potassium,mag sulfates 17.5 See Rx Instructions PO .COMPLEX 12/11/23 01/07/24 Rx gram-3.13 gram-1.6 gram oral soln #354 mL (Suprep Bowel Prep Kit) Allergies Allergy/AdvReac Type Severity Reaction Status Date / Time atropine [From ] AdvReac Intermediate SLOW TO Verified 01/07/24 08:28 METABOLIZE gluten [GLUTEN] AdvReac Intermediate JOINT PAIN Verified 01/07/24 08:28 hyoscyamine [From ] AdvReac Intermediate SLOW TO Verified 01/07/24 08:28 METABOLIZE latex [LATEX] AdvReac Intermediate SKIN Verified 01/07/24 08:28 IRRITATION phenobarbital [From ] AdvReac Intermediate SLOW TO Verified 01/07/24 08:28 METABOLIZE ranitidine [RANITIDINE] AdvReac Intermediate DEPRESSION, Verified 01/07/24 08:28 ITCHING Exam Vital Signs (past 8 hours): - 01/07/24 08:40 Temperature 98.1 F Pulse Rate 113 H Respiratory Rate 16 Blood Pressure 157/78 H Pulse Oximetry 97 Oxygen Delivery Method Room Air Oxygen Delivery Method Room Air Narrative Exam Narrative: General adult woman alert oriented no acute distress Chest nonlabored respiration Extremities warm well perfused Assessment & Plan Assessment and plan (1) Positive colorectal cancer screening using Cologuard test: Status: Acute Assessment & Plan narrative: Diagnostic colonoscopy indicated. Technical details were discussed. Risks, benefits, alternatives explained. Risks including but not limited to myocardial infarction, aspiration, bleeding, pain, missed lesion, incomplete examination, need for further radiographic studies, intestinal injury, and need for major abdominal surgery were discussed. All questions were answered to their satisfaction, and they are in agreement with this plan. Time-Based Coding :: [TOTAL MINUTES] spent with patient and on the chart (including review of chart, obtaining history, exam, reviewing outside data, placing orders, documenting exam and treatment plan, and counseling patient) on [DATE].
[2024-01-07 09:33] VITALS: BP 119/64; PULSE 96; RESP 18; TEMP 36.5; O2SAT 95
--- NOTE | 2024-01-07 09:37 | P.OP.COLON_ITS ---
Operative Date/Time/Diagnoses Date of procedure: 01/07/24 Time of procedure: 09:37 Pre-op diagnosis: Positive Cologuard test Procedure & Clinicians Study performed: Diagnostic colonoscopy Same procedure as scheduled: Yes Indications: Diagnostic colonoscopy for positive Cologuard test Surgeon: Geraldo Brennan Procedure Notes Procedure in detail: The history and physical was performed/updated and the patient is ASA class is 2. The procedure was discussed in detail with the patient. Potential risks complications including infection, bleeding, missed diagnosis, perforation, need for surgery, and were explained. Their questions were answered and informed consent was obtained. Patient was brought to the procedure room and placed standard monitoring equipment. The patient's vital signs were monitored continuously throughout the entire procedure. Prior to starting time-out was performed. The patient was placed in the left lateral recumbent position. Procedural sedation was administered by anesthesia. Examination began with a thorough inspection of the perianal area there was no evidence of fissures, fistulae, external hemorrhoids or cutaneous malignancy. The colonoscopy scope was then placed into the anal canal and was advanced to the cecum, which was identified by the ileocecal valve, the appendiceal orifice and the confluence of the taenia. The scope was then slowly withdrawn examining colon thoroughly in all directions, irrigating it of any residual stool. The scope was retroflexed within the rectum The patient tolerated the procedure well. They will be discharged once criteria are met. The prep was of good/excellent quality. The withdrawl time was 7 minutes. FINDINGS * Diverticulosis of descending colon * Internal hemorrhoids * Healthy colonic mucosa without mass or polyps. Specimen(s): none sent Impression: Diverticulosis, internal hemorrhoids Post-procedure Recommendations: High fiber diet Plan for aftercare: No need for further colonoscopy unless symptomatic Disposition: same day surgery
[2024-01-07 09:38] VITALS: BP 119/68; PULSE 86; RESP 19; TEMP 36.5; O2SAT 97
[2024-01-07 09:44] VITALS: BP 128/64; PULSE 83; RESP 13; TEMP 36.4; O2SAT 97
[2024-01-07 09:55] VITALS: BP 140/89; PULSE 89; RESP 14; TEMP 36.4; O2SAT 97
== END 2024-01-07 10:00 | disposition home or self-care (01) ==
PROVIDERS: Family Provider Internal Medicine; PCP Internal Medicine; Referring Provider Surgery; Visit Provider Surgery
PROC: 0DJD8ZZ Inspection of Lower Intestinal Tract, Via Natural or Artificial Opening Endoscopic (ICD-10-PCS; CPT 45378; principal; 2024-01-07 09:15)
DX: Z12.11 Encounter for screening for malignant neoplasm of colon (principal); R19.5 Other fecal abnormalities; K57.30 Diverticulosis of large intestine without perforation or abscess without bleeding; K64.8 Other hemorrhoids
CPT/HCPCS: G0121; J2704

== ENCOUNTER → 2024-05-15 10:15 | Outpatient (CLI) | payer MEDICARE, OTHER, SELFPAY ==
--- NOTE | 2024-05-15 | DI.RAD.S_ITS ---
PROCEDURE: XR HIP W PEL IF DONE RT 2V INDICATIONS: right hip pain, status post replacement TECHNIQUE: 2 view(s) of the hip acquired. COMPARISON: [facility], CR, XR LUMBAR SPINE 2-3V, 02/09/2020, 21:20. [facility], CR, XR LUMBAR SPINE 2-3V, 02/10/2020, 15:53. FINDINGS: Status post right hip total arthroplasty with the acetabular screw tip projecting over right greater sciatic notch, unchanged dating back to 02/09/2020. Otherwise, no hardware complication. No fracture or dislocation. Diffuse osseous demineralization. Mild left hip and bilateral sacroiliac joint osteoarthritis. Moderate lower lumbar osteoarthrosis. Vascular calcifications. IMPRESSION: Status post right hip total arthroplasty without hardware complication. Dictated by: Freddie Aguilar M.D. on 05/15/2024 at 12:39 Approved by: Freddie Aguilar M.D. on 05/15/2024 at 12:42
== END ==
LOC: RAD 10:17
PROVIDERS: Family Provider Internal Medicine; PCP Internal Medicine; Referring Provider Internal Medicine; Visit Provider Internal Medicine
DX: M16.12 Unilateral primary osteoarthritis, left hip (principal); M25.551 Pain in right hip; M47.816 Spondylosis without myelopathy or radiculopathy, lumbar region; M47.818 Spondylosis without myelopathy or radiculopathy, sacral and sacrococcygeal region; Z96.641 Presence of right artificial hip joint
CPT/HCPCS: 73502

== ENCOUNTER → 2024-07-07 11:35 | Outpatient (CLI) | payer MEDICARE, OTHER, SELFPAY ==
--- NOTE | 2024-07-07 11:37 | DI.CT.S_ITS ---
PROCEDURE: CT SINUS SCREEN WO CON INDICATIONS: tinnitus of right ear TECHNIQUE: Noncontrast 3.0 mm axial images acquired from the frontal sinuses to the mid-sella, with coronal and sagittal reformats. For radiation dose reduction, the following was used: automated exposure control, adjustment of mA and/or kV according to patient size. COMPARISON: None. FINDINGS: Image quality: Excellent. Maxillary Sinuses: No bony remodeling or destruction. Sinuses are clear. Ethmoid Air Cells: No bony remodeling or destruction. Sinuses are clear. Sphenoid Sinuses: No bony remodeling or destruction. Sinuses are clear. Frontal Sinuses: No bony remodeling or destruction. Sinuses are clear. Ostiomeatal Complexes: Ostiomeatal complexes are patent. Small bilateral Teresa cells. Miscellaneous: Visualized intra-orbital contents are normal. Lens replacements. No chriss bullosa or paradoxical turbinate curvature. Mild rightward nasal septal deviation with spurring. IMPRESSION: No significant paranasal sinus disease. Dictated by: Shola Ponce M.D. on 07/07/2024 at 12:26 Approved by: Shola Ponce M.D. on 07/07/2024 at 12:30
== END ==
LOC: CT 11:36
PROVIDERS: Family Provider Internal Medicine; PCP Internal Medicine; Referring Provider Family Medicine; Visit Provider Family Medicine
DX: H93.11 Tinnitus, right ear (principal); H69.93 Unspecified Eustachian tube disorder, bilateral; H91.93 Unspecified hearing loss, bilateral; J34.2 Deviated nasal septum
CPT/HCPCS: 70486

== ENCOUNTER 2024-07-16 11:10 | Outpatient (RCR) | payer MEDICARE, OTHER, SELFPAY ==
--- NOTE | 2024-07-16 14:31 | OT.OP.DC ---
Visit Care Team Role Provider Type CARL Santana Family Provider Advanced Java Programmer Primary Care Provider Address: [facility] [place]note [place], [address], [place], [address] Email: [email or web address] Chitra Lr MD Attending Provider Physician Referring Provider Address: [facility] [place]note [place], [address], [place], [address] Email: [email or web address] Outpatient OT Outpatient Adult Evaluation Start: 07/16/24 14:07 Freq: Status: Active Protocol: Document 07/16/24 14:08 AMS (Rec: 07/16/24 14:31 AMS [id number]) General Information - Adult Visit Information Insurance Information Medicare Session Time Visit Start Time 11:30 Visit Stop Time 12:00 Setting Treatment Setting Outpatient Care Visit Type Note Type Initial Evaluation Referral Referring Physician Sabiha Carlos MD Reason for Referral Pain in L hand Identification Identification Confirmed Yes Identification Confirmed By Self, MJ Assessment/Plan Assessment Treatment Assessment LESLEY was referred to outpatient OT d/t L hand pain; she is R hand dominant. Medical history is significant for arthritis, back pain, osteopenia, osteoporosis, R THR, and dupuytrens. Whole Body Pain Assessment Grid completed; indication of 1/10 on pain scale relative to R hip; 3/10 on pain scale relative to lower back; 3/10 on pain scale relative to dorsal L knee and 3/10 on pain scale relative to L dorsal ankle. Hand/Wrist Pain Assessment Grid completed ; indication of 7/10 relative to volar and dorsal surface L middle finger PIP -> distal/ tip of finger; 3/10 relative to volar surface R PIP -> DIP/ middle phalanx, 2/10 relative to dorsal surface R PIP -> distal/tip of finger. She reports taking Alleve every 4 wks; she reports a positive response to essential oils for pain relief and a significant (-) response to Mucinex. QuickDASH UE Outcome Measure Score = 38.64. 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 She reports h/o having x 3 treatments to the L hand for Dupuytren's; she received her first x 2 treatments in [place] in 2010 (enzyme treatments) and a 3rd treatment in [place] in 2013 ( aponeurotomy). She reports having numbness of the L 3rd digit particularly at night; she reports being previous instructed in hand/wrist range of motion exercises to maintain available range of motion of digits/wrists/hands. She has been provided w/ bilateral wrist/hand braces which she wears at night; she does alternate braces w/ hand warmers. She reports previously being instructed on use of heat, ice, paraffin bath, and stress ball for ROM/ functional strengthening. She denied any questions regarding joint protection and/or modification techniques and/or adaptive techniques. Thus, recommend d/c from outpatient at this clinic. Given ulnar drift of 3rd and 4th digits of the left hand, as well as the 2nd digit of the R hand, however, recommend obtaining a referral to [facility] to explore custom-made splinting for these digits/for the hands. Plan Patient Recommendations Discharge from Occupational Therapy Other Suggested Referrals Referral to see Certified Hand Therapist; [facility] Functional Wrist/Hand Scan Hand Side Sensory Assessment Sensory Profile2
== END 2024-07-20 11:25 | disposition home or self-care (01) ==
LOC: OT 11:10
PROVIDERS: Family Provider Internal Medicine; PCP Internal Medicine; Referring Provider Family Medicine; Visit Provider Family Medicine
DX: M79.642 Pain in left hand (principal)
CPT/HCPCS: 97165

== ENCOUNTER → 2024-10-16 15:58 | Outpatient (CLI) | payer MEDICARE, OTHER, SELFPAY ==
--- NOTE | 2024-10-16 15:59 | DI.MRI.S_ITS ---
PROCEDURE: MR LUMBAR SPINE WO CON INDICATIONS: LUMBAR RADICULOPATHY TECHNIQUE: Noncontrast sagittal T1 spin echo and T2 fast echo, sagittal STIR, and T2 fast spin echo through the lumbar spine. In cases with scoliosis, additional coronal T2 fast spin echo may be performed. COMPARISON: [facility], MR, MR LUMBAR SPINE WO CON, 02/10/2020, 8:07. FINDINGS: Image quality: Excellent. Alignment and Curvature: There is grade 1 L4 anterolisthesis as well as T12 retrolisthesis. Mild to moderate Modic type 1 reactive endplate changes at L5-S1 as well as T12-L1. Bone Marrow: Stable appearance of cystic lesion in the L4 vertebral body, therefore benign. No new suspicious osseous lesions seen. Spinal Cord: Conus medullaris terminates at the L1 level. Visualized cord demonstrates normal signal and size. Paraspinous Soft Tissues: No paravertebral masses. T12-L1: There is disc bulge and posterior osteophyte, with moderate left foraminal stenosis and mild left lateral recess stenosis, no significant central spinal stenosis. L1-L2: No significant spinal stenosis. Mild disc bulge. L2-L3: There is disc bulge as well as bilateral ligamentum flavum thickening and facet arthropathy. There is mild right foraminal narrowing. Mild central canal narrowing. L3-L4: There is disc bulge with superimposed right intra foraminal and lateral protrusion. There is mild central canal narrowing as well as moderate right lateral recess and mild right foraminal stenosis. L4-L5: There is disc bulge, with mild central canal narrowing due also to the spondylolisthesis. There is also bilateral ligamentum flavum thickening. No significant spinal stenosis. L5-S1: Bilateral facet arthropathy and mild disc bulge, without significant spinal stenosis. There is also a synovial cyst along the left lamina measuring 5.5 mm. IMPRESSION: 1. Multilevel degenerative changes as described, most prominent at L3-L4. These have progressed compared to prior study. There is also more prominent degenerative disc disease and spondylolisthesis. 2. The previously seen disc extrusion at L3-L4 has resolved. No new disc extrusion or acute focal osseous lesion seen. Dictated by: Corby Bettencourt M.D. on 10/17/2024 at 14:04 Approved by: Corby Bettencourt M.D. on 10/17/2024 at 14:14
== END ==
LOC: MRI 15:59
PROVIDERS: Family Provider Internal Medicine; PCP Family Medicine; Referring Provider Family Medicine; Visit Provider Family Medicine
DX: M51.372 Other intervertebral disc degeneration, lumbosacral region with discogenic back pain and lower extremity pain (principal); M51.16 Intervertebral disc disorders with radiculopathy, lumbar region; M51.17 Intervertebral disc disorders with radiculopathy, lumbosacral region; M47.26 Other spondylosis with radiculopathy, lumbar region; M47.27 Other spondylosis with radiculopathy, lumbosacral region; M48.061 Spinal stenosis, lumbar region without neurogenic claudication; M43.16 Spondylolisthesis, lumbar region
CPT/HCPCS: 72148

== ENCOUNTER → 2024-11-20 12:06 | Outpatient (CLI) | payer MEDICARE, OTHER, SELFPAY ==
--- NOTE | 2024-11-20 12:07 | DI.RAD.S_ITS ---
PROCEDURE: XR DEXA AXIAL SKELETON INDICATIONS: osteoporosis COMPARISON: [facility], , XR DEXA APPENDICULAR SKELETON, 03/15/2023, 11:55. FINDINGS: Lumbar Spine: Bone mineral density 0.926 (previously 0.957) g/cm2, T score -1.4 (previously -1.1). Left Femoral Neck: Bone mineral density 0.560 (previously 0.546) g/cm2, T score -2.6 (previously -2.7). Left Hip: Bone mineral density 0.590 (previously 0.598) g/cm2, T score -2.9 (previously -2.8). Fracture Risk Calculation (when applicable): 10-year fracture risk of a major osteoporotic fracture 20 percent and of a hip fracture 7.1 percent. (T score greater or equal to -1.0 to: NORMAL) (T score from -1.1 to -2.4: OSTEOPENIA) (T score less than or equal to -2.5: OSTEOPOROSIS) IMPRESSION: Osteoporosis--- recommend repeat DEXA in 2 years or less for reassessment of response to treatment. Follow-up guidelines as follows: Osteoporosis: Consider a repeat DEXA and Vertebral Fracture Assessment (VFA) exam in 2 years or sooner if medically necessary, to reassess this patient's status. Osteopenia: Consider a repeat DEXA in 2-3 years to reassess this patient's status, or if there is a new clinical indication. Normal: Consider a repeat DEXA in 5 years or sooner, or if there is a new clinical indication. All treatment decisions require clinical judgment and consideration of individual patient factors, including patient preferences, comorbidities, previous drug use, risk factors not captured in the FRAX model (e.g., frailty, falls, vitamin D deficiency, increased bone turnover, interval significant decline in bone density ) and possible under- or over-estimation of fracture risk by FRAX. In addition, the NOF Guide recommends that FDA-approved medical therapies be considered in postmenopausal women and men age >= 50 years with a: * Hip or vertebral (clinical or morphometric) fracture * T-score of <=-2.5 at the spine or hip * Ten-year fracture probability by FRAX of >= 3% for hip fracture or >=20% for major osteoporotic fracture. Dictated by: Freddie Akers M.D. on 11/20/2024 at 19:41 Approved by: Freddie Akers M.D. on 11/20/2024 at 19:46
== END ==
LOC: RAD 12:07
PROVIDERS: Family Provider Family Medicine; PCP Family Medicine; Referring Provider Family Medicine; Visit Provider Family Medicine
DX: M81.0 Age-related osteoporosis without current pathological fracture (principal); N30.90 Cystitis, unspecified without hematuria; M54.16 Radiculopathy, lumbar region; E78.00 Pure hypercholesterolemia, unspecified; E55.9 Vitamin D deficiency, unspecified; Z13.0 Encounter for screening for diseases of the blood and blood-forming organs and certain disorders involving the immune mechanism; R73.9 Hyperglycemia, unspecified
CPT/HCPCS: 77080

== ENCOUNTER 2024-11-26 14:30 | Outpatient (RCR) | payer MEDICARE, OTHER, SELFPAY ==
--- NOTE | 2024-10-27 18:18 | PT.OIE ---
Current Diagnoses Other intervertebral disc degeneration, lumbosacral region with discogenic back pain and lower extremity pain (10/27/24) Radiculopathy, lumbar region (10/27/24) Past Medical History (Last Reviewed 01/07/24 @ 09:04 by Geraldo Brennan MD) Abnormal Pap smear of cervix (~1986) Bilateral tinnitus (Unknown) Cataracts, bilateral (2014) Chickenpox (Unknown) Chronic back pain (2006) Depression (Unknown) Fractures (1999) GERD (gastroesophageal reflux disease) (~2004) Hypercholesterolemia (~2016) Measles (Unknown) Mumps (Unknown) Muscle spasm (2011) Osteoarthritis (Unknown) Vertigo (1981) Past Surgical History (Last Reviewed 01/07/24 @ 09:04 by Geraldo Brennan MD) History of hip replacement History of total mastectomy Status post hysterectomy with oophorectomy Visit Care Team Role Provider Type Chitra Lr MD Attending Provider Physician Family Provider Primary Care Provider Referring Provider Specialty: Family Practice Address: [address] [place] [address], [facility] Email: [email or web address] Physical Therapy Initial Evaluation PT-OP-A Visit Information Start: 10/27/24 10:21 Freq: Status: Active Protocol: Document 10/27/24 10:23 HOT METAL MIXER OPERATOR (Rec: 10/27/24 12:55 HOT METAL MIXER OPERATOR Laptop) Out-Patient Physical Therapy Visit Information Visit Information Visit Type Initial Evaluation Visit Start Time 11:35 Visit Stop Time 12:30 Visit Number 1 Number of DRAPERY AND UPHOLSTERY MEASURER Visits 0 Evaluation Information Evaluation Date 10/27/24 Precautions Precautions Mild Fall risk PT-OP-B Current Condition Start: 10/27/24 10:21 Freq: Status: Active Protocol: Document 10/27/24 10:23 HOT METAL MIXER OPERATOR (Rec: 10/27/24 12:55 HOT METAL MIXER OPERATOR Laptop) Current Condition History of Current Condition Onset Date 3 years ago Current Complaints low back pain, difficulty bending and lifting History of Current Condition 3 years ago had B leg weakness and falls, had MRI and found a herniated disc at L3-L4 and had emergency surgery. Prior Treatments and Tests R PATTI 2015 ant approach Treatment Goals Patient/Caregiver Goals Pt reports he daughter has been sick and she needs to go to [place] (36 hour trip) to take care of daughter December 08 for unknown amount of time. Pt reports she wakes up with back pain and uses ice or heat for pain management. She feels stiff in the morning and but better once she gets up and starts walking around. Pt reports she feels like she's leaning to her R and feels off balance when standing on her R leg. Pt has 3 stairs into her garage with 1 rail, has had a fall down front steps without a rail. Pt reports she normally walks about 2-3 miles a day, now walks about 3 ,000 steps a day. Pt reports bending and lifting cause back pain to be worse. 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 PT-OP-C Subjective Start: 10/27/24 10:21 Freq: Status: Active Protocol: Document 10/27/24 10:23 HOT METAL MIXER OPERATOR (Rec: 10/27/24 12:55 HOT METAL MIXER OPERATOR Laptop) Patient Questionnaires Oswestry Low Back Index Oswestry Score 11 OP-PT Pain Assessment Comments Pain Comments 1/10 pain in middle of low back. Occasionally feels radiated symptoms down L leg with worst being to ankle PT-OP-D Balance Start: 10/27/24 10:21 Freq: Status: Active Protocol: Document 10/27/24 10:23 HOT METAL MIXER OPERATOR (Rec: 10/27/24 12:55 HOT METAL MIXER OPERATOR Laptop) Balance Tests Single Limb Standing Single Limb- Right 9s with support on other leg Single Limb- Left 2s PT-OP-F Manual Assessment Start: 10/27/24 10:21 Freq: Status: Active Protocol: Document 10/27/24 10:23 HOT METAL MIXER OPERATOR (Rec: 10/27/24 12:55 HOT METAL MIXER OPERATOR Laptop) Manual Assessments Soft Tissue Assessment Soft Tissue Mobility Assessment Decreased soft tissue mobility to R lumbar paraspinals and R and L glute/piriformis with TTP to R lumbar paraspinals PT-OP-G Mobility & Gait Start: 10/27/24 10:21 Freq: Status: Active Protocol: Document 10/27/24 10:23 HOT METAL MIXER OPERATOR (Rec: 10/27/24 12:55 HOT METAL MIXER OPERATOR Laptop) OP Gait Assessment Comments Gait Comments Weight shift and lean to R side including lean to L hip and shoulder elevated, slight unsteadiness of gait but without LOB Stair Climbing Evaluation Comments Stair Climbing Comments 6 stairs with 1 HR Ascend and descend normal reciprocal pattern with B hip drop d/t weakness R>L PT-OP-H Neuro Start: 10/27/24 10:21 Freq: Status: Active Protocol: Document 10/27/24 10:23 HOT METAL MIXER OPERATOR (Rec: 10/27/24 12:55 HOT METAL MIXER OPERATOR Laptop) Sensation Evaluation Comments Summary Comments Reports tingling at times in her mid back but at this time no N/T anywhere PT-OP-L Special Tests Start: 10/27/24 10:21 Freq: Status: Active Protocol: Document 10/27/24 10:23 HOT METAL MIXER OPERATOR (Rec: 10/27/24 12:55 HOT METAL MIXER OPERATOR Laptop) Special Tests Lumbar Spine Special Tests Slump Test Results Positive on L Comments mildly positive PT-OP-M Strength Start: 10/27/24 10:21 Freq: Status: Active Protocol: Document 10/27/24 10:23 HOT METAL MIXER OPERATOR (Rec: 10/27/24 12:55 HOT METAL MIXER OPERATOR Laptop) Hip Strength Hip Manual Muscle Testing L Flexion (L2) 4 Good Extension (S1) 4- Good- Abduction 4 Good Comments Prone RLE heel to buttock: 14 Prone LLE heel to buttock: 11. 5 R Flexion (L2) 4 Good Extension (S1) 3- Fair- Abduction 4- Good- Knee Strength Knee Manual Muscle Testing L Flexion (S2) 3+ Fair+ Extension (L3) 4 Good R Flexion (S2) 4 Good Extension (L3) 4- Good- Ankle/Foot Strength Ankle and Foot Manual Muscle Testing L Dorsiflexion (L4) 4- Good- R Dorsiflexion (L4) 4 Good PT-OP-Q Treatments Start: 10/27/24 10:21 Freq: Status: Active Protocol: Document 10/27/24 10:23 HOT METAL MIXER OPERATOR (Rec: 10/27/24 12:55 HOT METAL MIXER OPERATOR Laptop) Therapeutic Exercises Supine Exercises Bridges Side bilateral Reps/Minutes 10x3 Sidelying Exercises Stretching Sidelying Exercise Name Quad stretch Side right Equipment Used sheet Comments attempted standing and sidelying quad stretch without success Clamshells Side bilateral Resistance gravity Reps/Minutes 10x3 Comments TC at hip to prevent roll back PT-OP-T Assessment and Plan Start: 10/27/24 10:21 Freq: Status: Active Protocol: Document 10/27/24 10:23 HOT METAL MIXER OPERATOR (Rec: 10/27/24 12:55 HOT METAL MIXER OPERATOR Laptop) Physical Therapy Assessment Rehab Potential Rehabilitation Potential Good Evaluation Complexity Number of Personal Factors/Comorbidities 1-2 Number of Body Systems Impaired 1-2 Clinical Presentation at Evaluation Stable Impairments Impairments Activity Tolerance,Balance, Functional Activities, Functional Mobility,Gait,Pain, ROM,Soft Tissue Mobility, Strength Goals 4. Impairment Function Impairment oswestry low back pain Short Term Goal (STG) Pt will improve oswestry score from 22% to 50% to improve functional mobility STG Duration 6 weeks Top Polisher Goal (LTG) Pt will improve oswestry score from 22% to 75% to improve functional mobility LTG Duration 12 weeks 3. Impairment Balance Impairment SLS Short Term Goal (STG) Pt will demonstrate improved balance with B SLS 30s on stable surface without UE suppport STG Duration 6 weeks Top Polisher Goal (LTG) Pt will demonstrate improved balance with B SLS 60s on stable surface without UE support LTG Duration 12 weeks 2. Impairment Strength Impairment BLE strength Short Term Goal (STG) Pt will improve BLE strength by 2 MMT scores to improve functional mobility STG Duration 6 weeks Top Polisher Goal (LTG) Pt will demonstrate picking up 10 objects from floor during session with good form and without onset of pain. LTG Duration 12 weeks 1. Impairment ROM Impairment Decreased B quad/HS length Short Term Goal (STG) Pt will improve prone heel to buttock length by 2 for improved quad length and functional mobility STG Duration 6 weeks Snf Goal (LTG) Pt will improve prone heel to buttock length by 4 for improved quad length and functional mobility LTG Duration 12 weeks Assessment Summary Assessment Pt presents with pain in low back that occasionally radiates down LLE and limits her ability to bend and lift when performing functional activities. Pt demonstrates decreased BLE strength with RLE less than R, decreased standing balance, decreased posture with leaning to R side , and decreased B hip ROM. Pt will benefit from skilled PT to improve impairments and reach functional goals of visiting and helping to care for her daughter in [place] on December 08 and tolerating plane ride. Physical Therapy Plan Frequency and Duration Frequency of Treatment 2-3x/wk Duration of treatment (weeks) 12 Plan of Care Start Date 10/27/24 Plan of Care End Date 01/19/25 Therapeutic Interventions Therapeutic Interventions Balance Training,Gait Training ,Home Exercise Program,Manual Therapy,Neuromuscular Re- education,Soft Tissue Mobilization,Taping, Therapeutic Activities, Therapeutic Exercises Modalities Cold Pack/Ice Massage,Electric Stimulation,Hot Packs, Infrared Therapy,Traction- Mechanical,Ultrasound Next Visit Focus/Plan Next Note Type Treatment Note Next Visit Plan Manual B quad stretches, B hip strengthening, core strengthening with PPT
--- NOTE | 2024-10-29 11:29 | PT.OTN ---
Current Diagnoses Other intervertebral disc degeneration, lumbosacral region with discogenic back pain and lower extremity pain (10/29/24) Radiculopathy, lumbar region (10/29/24) Physical Therapy Treatment Note PT-OP-A Visit Information Start: 10/27/24 10:21 Freq: Status: Active Protocol: Document 10/29/24 10:45 DCW (Rec: 10/29/24 11:28 DCW [id number]) Out-Patient Physical Therapy Visit Information Visit Information Visit Type Treatment Note Visit Start Time 10:45 Visit Stop Time 11:30 Visit Number 2 Number of CENTRAL SUPPLY TECHNICIAN SUPERVISOR Visits 0 Evaluation Information Evaluation Date 10/27/24 Precautions Precautions Mild Fall risk PT-OP-B Current Condition Start: 10/27/24 10:21 Freq: Status: Active Protocol: Document 10/27/24 10:23 RESIDENT DOCTOR (Rec: 10/27/24 12:55 RESIDENT DOCTOR Laptop) Current Condition History of Current Condition Onset Date 3 years ago Current Complaints low back pain, difficulty bending and lifting History of Current Condition 3 years ago had B leg weakness and falls, had MRI and found a herniated disc at L3-L4 and had emergency surgery. Prior Treatments and Tests R PATTI 2016 ant approach Treatment Goals Patient/Caregiver Goals Pt reports he daughter has been sick and she needs to go to [place] (36 hour trip) to take care of daughter December 08 for unknown amount of time. Pt reports she wakes up with back pain and uses ice or heat for pain management. She feels stiff in the morning and but better once she gets up and starts walking around. Pt reports she feels like she's leaning to her R and feels off balance when standing on her R leg. Pt has 3 stairs into her garage with 1 rail, has had a fall down front steps without a rail. Pt reports she normally walks about 2-3 miles a day, now walks about 3 ,000 steps a day. Pt reports bending and lifting cause back pain to be worse. 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 PT-OP-C Subjective Start: 10/27/24 10:21 Freq: Status: Active Protocol: Document 10/29/24 10:45 DCW (Rec: 10/29/24 11:29 DCW [id number]) OP-PT Subjective Patient Comments Patient Comments Pt admits she has been on the phone with her daughter in [place] and is pretty stressed. PT-OP-D Balance Start: 10/27/24 10:21 Freq: Status: Active Protocol: Document 10/27/24 10:23 RESIDENT DOCTOR (Rec: 10/27/24 12:55 RESIDENT DOCTOR Laptop) Balance Tests Single Limb Standing Single Limb- Right 9s with support on other leg Single Limb- Left 2s PT-OP-F Manual Assessment Start: 10/27/24 10:21 Freq: Status: Active Protocol: Document 10/27/24 10:23 RESIDENT DOCTOR (Rec: 10/27/24 12:55 RESIDENT DOCTOR Laptop) Manual Assessments Soft Tissue Assessment Soft Tissue Mobility Assessment Decreased soft tissue mobility to R lumbar paraspinals and R and L glute/piriformis with TTP to R lumbar paraspinals PT-OP-G Mobility & Gait Start: 10/27/24 10:21 Freq: Status: Active Protocol: Document 10/27/24 10:23 RESIDENT DOCTOR (Rec: 10/27/24 12:55 RESIDENT DOCTOR Laptop) OP Gait Assessment Comments Gait Comments Weight shift and lean to R side including lean to L hip and shoulder elevated, slight unsteadiness of gait but without LOB Stair Climbing Evaluation Comments Stair Climbing Comments 6 stairs with 1 HR Ascend and descend normal reciprocal pattern with B hip drop d/t weakness R>L PT-OP-H Neuro Start: 10/27/24 10:21 Freq: Status: Active Protocol: Document 10/27/24 10:23 RESIDENT DOCTOR (Rec: 10/27/24 12:55 RESIDENT DOCTOR Laptop) Sensation Evaluation Comments Summary Comments Reports tingling at times in her mid back but at this time no N/T anywhere PT-OP-L Special Tests Start: 10/27/24 10:21 Freq: Status: Active Protocol: Document 10/27/24 10:23 RESIDENT DOCTOR (Rec: 10/27/24 12:55 RESIDENT DOCTOR Laptop) Special Tests Lumbar Spine Special Tests Slump Test Results Positive on L Comments mildly positive PT-OP-M Strength Start: 10/27/24 10:21 Freq: Status: Active Protocol: Document 10/27/24 10:23 RESIDENT DOCTOR (Rec: 10/27/24 12:55 RESIDENT DOCTOR Laptop) Hip Strength Hip Manual Muscle Testing L Flexion (L2) 4 Good Extension (S1) 4- Good- Abduction 4 Good Comments Prone RLE heel to buttock: 14 Prone LLE heel to buttock: 11. 5 R Flexion (L2) 4 Good Extension (S1) 3- Fair- Abduction 4- Good- Knee Strength Knee Manual Muscle Testing L Flexion (S2) 3+ Fair+ Extension (L3) 4 Good R Flexion (S2) 4 Good Extension (L3) 4- Good- Ankle/Foot Strength Ankle and Foot Manual Muscle Testing L Dorsiflexion (L4) 4- Good- R Dorsiflexion (L4) 4 Good PT-OP-Q Treatments Start: 10/27/24 10:21 Freq: Status: Active Protocol: Document 10/29/24 10:45 DCW (Rec: 10/29/24 11:28 DCW [id number]) Gym Equipment Therapeutic Ball Pelvic Circles Exercise Details Pelvic Tilt/Circles Ball Size/Color Green - 65 cm Body Position Sitting Therapeutic Exercises Supine Exercises SLR Supine Exercise Name PPT /c TrA bracing - SLR Side bilateral Comments VCs for breathing Marching Supine Exercise Name PPT /c TrA bracing - Marching Side bilateral PPT Supine Exercise Name PPT /c TrA bracing Bridges Supine Exercise Name Attempted /c unilateral leg extension, caused cramping Side bilateral Reps/Minutes 10x3 Comments VCs for glute contraction Standing Exercises Hip Extension Standing Exercise Name Hip Extension Side bilateral Resistance Green Loop Hip Hiking Standing Exercise Name Hip Hiking Side bilateral Equipment Used 6 step Other Exercises Resisted Ambulation Other Exercise Name Resisted side-stepping Resistance Green loop PT-OP-T Assessment and Plan Start: 10/27/24 10:21 Freq: Status: Active Protocol: Document 10/29/24 10:45 DCW (Rec: 10/29/24 11:28 DCW [id number]) Physical Therapy Assessment Impairments Impairments Activity Tolerance,Balance, Functional Activities, Functional Mobility,Gait,Pain, ROM,Soft Tissue Mobility, Strength Goals 4. Impairment Function Impairment oswestry low back pain Short Term Goal (STG) Pt will improve oswestry score from 22% to 50% to improve functional mobility STG Duration 6 weeks Jail Goal (LTG) Pt will improve oswestry score from 22% to 75% to improve functional mobility LTG Duration 12 weeks 3. Impairment Balance Impairment SLS Short Term Goal (STG) Pt will demonstrate improved balance with B SLS 30s on stable surface without UE suppport STG Duration 6 weeks Jail Goal (LTG) Pt will demonstrate improved balance with B SLS 60s on stable surface without UE support LTG Duration 12 weeks 2. Impairment Strength Impairment BLE strength Short Term Goal (STG) Pt will improve BLE strength by 2 MMT scores to improve functional mobility STG Duration 6 weeks Jail Goal (LTG) Pt will demonstrate picking up 10 objects from floor during session with good form and without onset of pain. LTG Duration 12 weeks 1. Impairment ROM Impairment Decreased B quad/HS length Short Term Goal (STG) Pt will improve prone heel to buttock length by 2 for improved quad length and functional mobility STG Duration 6 weeks Jail Goal (LTG) Pt will improve prone heel to buttock length by 4 for improved quad length and functional mobility LTG Duration 12 weeks Assessment Summary Assessment Very good response to treatment today, pt felt significantly better following exercise. Pt noted it felt like it was getting exactly where I needed it. Provided handouts for HEP, pt committed to continuing them. Continue to focus on low back mobility, core strengthening, hip strengthening. Physical Therapy Plan Frequency and Duration Frequency of Treatment 2-3x/wk Duration of treatment (weeks) 12 Plan of Care Start Date 10/27/24 Plan of Care End Date 01/19/25 Therapeutic Interventions Therapeutic Interventions Balance Training,Gait Training ,Home Exercise Program,Manual Therapy,Neuromuscular Re- education,Soft Tissue Mobilization,Taping, Therapeutic Activities, Therapeutic Exercises Modalities Cold Pack/Ice Massage,Electric Stimulation,Hot Packs, Infrared Therapy,Traction- Mechanical,Ultrasound Next Visit Focus/Plan Next Note Type Treatment Note Next Visit Plan Manual B quad stretches, B hip strengthening, core strengthening with PPT
--- NOTE | 2024-11-03 17:34 | PT.OTN ---
Current Diagnoses Other intervertebral disc degeneration, lumbosacral region with discogenic back pain and lower extremity pain (11/03/24) Radiculopathy, lumbar region (11/03/24) Physical Therapy Treatment Note PT-OP-A Visit Information Start: 10/27/24 10:21 Freq: Status: Active Protocol: Document 11/03/24 16:50 DCW (Rec: 11/03/24 17:34 DCW [id number]) Out-Patient Physical Therapy Visit Information Visit Information Visit Type Treatment Note Visit Start Time 16:50 Visit Stop Time 17:35 Visit Number 3 Number of FACILITY ATTENDANT Visits 0 Evaluation Information Evaluation Date 10/27/24 Precautions Precautions Mild Fall risk PT-OP-B Current Condition Start: 10/27/24 10:21 Freq: Status: Active Protocol: Document 10/27/24 10:23 PROGRAM SERVICES ASSISTANT (Rec: 10/27/24 12:55 PROGRAM SERVICES ASSISTANT Laptop) Current Condition History of Current Condition Onset Date 3 years ago Current Complaints low back pain, difficulty bending and lifting History of Current 3 years ago had B leg weakness and falls, had MRI and Condition found a herniated disc at L3-L4 and had emergency surgery. Prior Treatments and R PATTI 2016 ant approach Tests Treatment Goals Patient/Caregiver Pt reports he daughter has been sick and she needs to Goals go to [place] (36 hour trip) to take care of daughter December 08 for unknown amount of time. Pt reports she wakes up with back pain and uses ice or heat for pain management. She feels stiff in the morning and but better once she gets up and starts walking around. Pt reports she feels like she's leaning to her R and feels off balance when standing on her R leg. Pt has 3 stairs into her garage with 1 rail, has had a fall down front steps without a rail. Pt reports she normally walks about 2-3 miles a day, now walks about 3,000 steps a day. Pt reports bending and lifting cause back pain to be worse. 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 PT-OP-C Subjective Start: 10/27/24 10:21 Freq: Status: Active Protocol: Document 11/03/24 16:50 DCW (Rec: 11/03/24 17:34 DCW [id number]) OP-PT Subjective Patient Comments Patient Comments I'm feeling better, I'm almost afraid to say it. Pt notes she has been able to go out walking further distances. PT-OP-D Balance Start: 10/27/24 10:21 Freq: Status: Active Protocol: Document 10/27/24 10:23 PROGRAM SERVICES ASSISTANT (Rec: 10/27/24 12:55 PROGRAM SERVICES ASSISTANT Laptop) Balance Tests Single Limb Standing Single Limb- Right 9s with support on other leg Single Limb- Left 2s PT-OP-F Manual Assessment Start: 10/27/24 10:21 Freq: Status: Active Protocol: Document 10/27/24 10:23 PROGRAM SERVICES ASSISTANT (Rec: 10/27/24 12:55 PROGRAM SERVICES ASSISTANT Laptop) Manual Assessments Soft Tissue Assessment Soft Tissue Mobility Decreased soft tissue mobility to R lumbar paraspinals Assessment and R and L glute/piriformis with TTP to R lumbar paraspinals PT-OP-G Mobility & Gait Start: 10/27/24 10:21 Freq: Status: Active Protocol: Document 10/27/24 10:23 PROGRAM SERVICES ASSISTANT (Rec: 10/27/24 12:55 PROGRAM SERVICES ASSISTANT Laptop) OP Gait Assessment Comments Gait Comments Weight shift and lean to R side including lean to L hip and shoulder elevated, slight unsteadiness of gait but without LOB Stair Climbing Evaluation Comments Stair Climbing 6 stairs with 1 HR Comments Ascend and descend normal reciprocal pattern with B hip drop d/t weakness R>L PT-OP-H Neuro Start: 10/27/24 10:21 Freq: Status: Active Protocol: Document 10/27/24 10:23 PROGRAM SERVICES ASSISTANT (Rec: 10/27/24 12:55 PROGRAM SERVICES ASSISTANT Laptop) Sensation Evaluation Comments Summary Comments Reports tingling at times in her mid back but at this time no N/T anywhere PT-OP-L Special Tests Start: 10/27/24 10:21 Freq: Status: Active Protocol: Document 10/27/24 10:23 PROGRAM SERVICES ASSISTANT (Rec: 10/27/24 12:55 PROGRAM SERVICES ASSISTANT Laptop) Special Tests Lumbar Spine Special Tests Slump Test Results Positive on L Comments mildly positive PT-OP-M Strength Start: 10/27/24 10:21 Freq: Status: Active Protocol: Document 10/27/24 10:23 PROGRAM SERVICES ASSISTANT (Rec: 10/27/24 12:55 PROGRAM SERVICES ASSISTANT Laptop) Hip Strength Hip Manual Muscle Testing L Flexion (L2) 4 Good Extension (S1) 4- Good- Abduction 4 Good Comments Prone RLE heel to buttock: 14 Prone LLE heel to buttock: 11.5 R Flexion (L2) 4 Good Extension (S1) 3- Fair- Abduction 4- Good- Knee Strength Knee Manual Muscle Testing L Flexion (S2) 3+ Fair+ Extension (L3) 4 Good R Flexion (S2) 4 Good Extension (L3) 4- Good- Ankle/Foot Strength Ankle and Foot Manual Muscle Testing L Dorsiflexion (L4) 4- Good- R Dorsiflexion (L4) 4 Good PT-OP-Q Treatments Start: 10/27/24 10:21 Freq: Status: Active Protocol: Document 11/03/24 16:50 DCW (Rec: 11/03/24 17:34 DCW [id number]) Gym Equipment Therapeutic Ball Resisted hip flexion Exercise Details Resisted hip/knee flexion /c feet on ball Ball Size/Color Red - 55 cm Lv 2 T-band Body Position Supine Pelvic Circles Exercise Details Pelvic Tilt/Circles Ball Size/Color Green - 65 cm Body Position Sitting Low trunk rotation Exercise Details Low trunk rotation Ball Size/Color Red - 55 cm Body Position Supine Therapeutic Exercises Supine Exercises Bridges Side bilateral Reps/Minutes 10x3 Sidelying Exercises Hip Abduction Sidelying Exercise Hip Abduction Name Side bilateral Reverse Clamshell Sidelying Exercise Reverse Clamshell Name Side bilateral Clamshell Sidelying Exercise Clamshell Name Side bilateral Open Book Sidelying Exercise Open Book Name Side bilateral Standing Exercises Hip ER/IR Standing Exercise Half-knee on stool, ER/IR vs resistance Name Side bilateral Resistance Lv 2 T-band Pallof Press Standing Exercise Pallof Press Name Side bilateral Resistance Green Other Exercises Resisted Ambulation Other Exercise Name Resisted side-stepping Resistance Green loop PT-OP-T Assessment and Plan Start: 10/27/24 10:21 Freq: Status: Active Protocol: Document 11/03/24 16:50 DCW (Rec: 11/03/24 17:34 DCW [id number]) Physical Therapy Assessment Impairments Impairments Activity Tolerance,Balance,Functional Activities, Functional Mobility,Gait,Pain,ROM,Soft Tissue Mobility, Strength Goals 4. Impairment Function Impairment oswestry low back pain Short Term Goal (STG Pt will improve oswestry score from 22% to 50% to ) improve functional mobility STG Duration 6 weeks Jail Goal (LTG) Pt will improve oswestry score from 22% to 75% to improve functional mobility LTG Duration 12 weeks 3. Impairment Balance Impairment SLS Short Term Goal (STG Pt will demonstrate improved balance with B SLS 30s on ) stable surface without UE suppport STG Duration 6 weeks Acid Wash Operator Goal (LTG) Pt will demonstrate improved balance with B SLS 60s on stable surface without UE support LTG Duration 12 weeks 2. Impairment Strength Impairment BLE strength Short Term Goal (STG Pt will improve BLE strength by 2 MMT scores to improve ) functional mobility STG Duration 6 weeks Acid Wash Operator Goal (LTG) Pt will demonstrate picking up 10 objects from floor during session with good form and without onset of pain . LTG Duration 12 weeks 1. Impairment ROM Impairment Decreased B quad/HS length Short Term Goal (STG Pt will improve prone heel to buttock length by 2 for ) improved quad length and functional mobility STG Duration 6 weeks Acid Wash Operator Goal (LTG) Pt will improve prone heel to buttock length by 4 for improved quad length and functional mobility LTG Duration 12 weeks Assessment Summary Assessment Pt once again responded very well to treatment today. Notes following last visit, almost over night, I felt like a new person. Happy with addition of Open Book to HEP. Pt will likely benefit from continued focus on core and hip strengthening, as well as lumbar mobility. Physical Therapy Plan Frequency and Duration Frequency of 2-3x/wk Treatment Duration of 12 treatment (weeks) Plan of Care Start 10/27/24 Date Plan of Care End 01/19/25 Date Therapeutic Interventions Therapeutic Balance Training,Gait Training,Home Exercise Program, Interventions Manual Therapy,Neuromuscular Re-education,Soft Tissue Mobilization,Taping,Therapeutic Activities,Therapeutic Exercises Modalities Cold Pack/Ice Massage,Electric Stimulation,Hot Packs, Infrared Therapy,Traction- Mechanical,Ultrasound Next Visit Focus/Plan Next Note Type Treatment Note Next Visit Plan Manual B quad stretches, B hip strengthening, core strengthening with PPT
--- NOTE | 2024-11-05 12:16 | PT.OTN ---
Current Diagnoses Other intervertebral disc degeneration, lumbosacral region with discogenic back pain and lower extremity pain (11/05/24) Radiculopathy, lumbar region (11/05/24) Physical Therapy Treatment Note PT-OP-A Visit Information Start: 10/27/24 10:21 Freq: Status: Active Protocol: Document 11/05/24 11:30 DCW (Rec: 11/05/24 12:15 DCW [id number]) Out-Patient Physical Therapy Visit Information Visit Information Visit Type Treatment Note Visit Start Time 11:30 Visit Stop Time 12:15 Visit Number 4 Number of SMOCKER Visits 0 Evaluation Information Evaluation Date 10/27/24 Precautions Precautions Mild Fall risk PT-OP-B Current Condition Start: 10/27/24 10:21 Freq: Status: Active Protocol: Document 10/27/24 10:23 DIRECTOR PHARMACEUTICAL (Rec: 10/27/24 12:55 DIRECTOR PHARMACEUTICAL Laptop) Current Condition History of Current Condition Onset Date 3 years ago Current Complaints low back pain, difficulty bending and lifting History of Current 3 years ago had B leg weakness and falls, had MRI and Condition found a herniated disc at L3-L4 and had emergency surgery. Prior Treatments and R PATTI 2016 ant approach Tests Treatment Goals Patient/Caregiver Pt reports he daughter has been sick and she needs to Goals go to [place] (36 hour trip) to take care of daughter December 08 for unknown amount of time. Pt reports she wakes up with back pain and uses ice or heat for pain management. She feels stiff in the morning and but better once she gets up and starts walking around. Pt reports she feels like she's leaning to her R and feels off balance when standing on her R leg. Pt has 3 stairs into her garage with 1 rail, has had a fall down front steps without a rail. Pt reports she normally walks about 2-3 miles a day, now walks about 3,000 steps a day. Pt reports bending and lifting cause back pain to be worse. 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 PT-OP-C Subjective Start: 10/27/24 10:21 Freq: Status: Active Protocol: Document 11/05/24 11:30 DCW (Rec: 11/05/24 12:15 DCW [id number]) OP-PT Subjective Patient Comments Patient Comments Pt notes she isn't feeling as good this time. Reports she brought in groceries yesterday, including a couple containers of milk up the stairs, and it seems to have flared her up. PT-OP-D Balance Start: 10/27/24 10:21 Freq: Status: Active Protocol: Document 10/27/24 10:23 DIRECTOR PHARMACEUTICAL (Rec: 10/27/24 12:55 DIRECTOR PHARMACEUTICAL Laptop) Balance Tests Single Limb Standing Single Limb- Right 9s with support on other leg Single Limb- Left 2s PT-OP-F Manual Assessment Start: 10/27/24 10:21 Freq: Status: Active Protocol: Document 10/27/24 10:23 DIRECTOR PHARMACEUTICAL (Rec: 10/27/24 12:55 DIRECTOR PHARMACEUTICAL Laptop) Manual Assessments Soft Tissue Assessment Soft Tissue Mobility Decreased soft tissue mobility to R lumbar paraspinals Assessment and R and L glute/piriformis with TTP to R lumbar paraspinals PT-OP-G Mobility & Gait Start: 10/27/24 10:21 Freq: Status: Active Protocol: Document 10/27/24 10:23 DIRECTOR PHARMACEUTICAL (Rec: 10/27/24 12:55 DIRECTOR PHARMACEUTICAL Laptop) OP Gait Assessment Comments Gait Comments Weight shift and lean to R side including lean to L hip and shoulder elevated, slight unsteadiness of gait but without LOB Stair Climbing Evaluation Comments Stair Climbing 6 stairs with 1 HR Comments Ascend and descend normal reciprocal pattern with B hip drop d/t weakness R>L PT-OP-H Neuro Start: 10/27/24 10:21 Freq: Status: Active Protocol: Document 10/27/24 10:23 DIRECTOR PHARMACEUTICAL (Rec: 10/27/24 12:55 DIRECTOR PHARMACEUTICAL Laptop) Sensation Evaluation Comments Summary Comments Reports tingling at times in her mid back but at this time no N/T anywhere PT-OP-L Special Tests Start: 10/27/24 10:21 Freq: Status: Active Protocol: Document 10/27/24 10:23 DIRECTOR PHARMACEUTICAL (Rec: 10/27/24 12:55 DIRECTOR PHARMACEUTICAL Laptop) Special Tests Lumbar Spine Special Tests Slump Test Results Positive on L Comments mildly positive PT-OP-M Strength Start: 10/27/24 10:21 Freq: Status: Active Protocol: Document 10/27/24 10:23 DIRECTOR PHARMACEUTICAL (Rec: 10/27/24 12:55 DIRECTOR PHARMACEUTICAL Laptop) Hip Strength Hip Manual Muscle Testing L Flexion (L2) 4 Good Extension (S1) 4- Good- Abduction 4 Good Comments Prone RLE heel to buttock: 14 Prone LLE heel to buttock: 11.5 R Flexion (L2) 4 Good Extension (S1) 3- Fair- Abduction 4- Good- Knee Strength Knee Manual Muscle Testing L Flexion (S2) 3+ Fair+ Extension (L3) 4 Good R Flexion (S2) 4 Good Extension (L3) 4- Good- Ankle/Foot Strength Ankle and Foot Manual Muscle Testing L Dorsiflexion (L4) 4- Good- R Dorsiflexion (L4) 4 Good PT-OP-Q Treatments Start: 10/27/24 10:21 Freq: Status: Active Protocol: Document 11/05/24 11:30 DCW (Rec: 11/05/24 12:15 DCW [id number]) Gym Equipment Shuttle Recovery Unilateral Squats Resistance 37# Shuttle Recovery Stable Platform Bilateral Squats Details VCs to maintain abdominal bracing Resistance 75# Shuttle Recovery Stable Platform Therapeutic Ball Resisted hip flexion Exercise Details Resisted hip/knee flexion /c feet on ball Ball Size/Color Red - 55 cm Lv 2 T-band Body Position Supine Low trunk rotation Exercise Details Low trunk rotation Ball Size/Color Red - 55 cm Body Position Supine Sport Cord Blue Exercise Details 4-way resisted ambulation Cord/Resistance White/Blue Therapeutic Exercises Sidelying Exercises Reverse Clamshell Sidelying Exercise Reverse Clamshell Name Side bilateral Clamshell Sidelying Exercise Clamshell Name Side bilateral Open Book Sidelying Exercise Open Book Name Side bilateral Standing Exercises Hip Abduction Standing Exercise Hip Abduction Name Side bilateral Resistance Green loop Pallof Press Standing Exercise Pallof Press Name Side bilateral Resistance Blue Hip Extension Standing Exercise Hip Extension Name Side bilateral Resistance Green Loop Other Exercises Resisted Ambulation Other Exercise Name Resisted Forward/Retro Monster walks Resistance Lv 2 loop Manual Therapy Treatment Consent Patient gave verbal Yes consent for manual treatment Soft Tissue Mobilization Lumbar Body Location Bilateral Lumbar paraspinals Mobilization Type Strumming,Sustained Pressure Intensity/Depth Moderate Body Position Sidelying PT-OP-T Assessment and Plan Start: 10/27/24 10:21 Freq: Status: Active Protocol: Document 11/05/24 11:30 DCW (Rec: 11/05/24 12:15 DCW [id number]) Physical Therapy Assessment Impairments Impairments Activity Tolerance,Balance,Functional Activities, Functional Mobility,Gait,Pain,ROM,Soft Tissue Mobility, Strength Goals 4. Impairment Function Impairment oswestry low back pain Short Term Goal (STG Pt will improve oswestry score from 22% to 50% to ) improve functional mobility STG Duration 6 weeks Halfway Goal (LTG) Pt will improve oswestry score from 22% to 75% to improve functional mobility LTG Duration 12 weeks 3. Impairment Balance Impairment SLS Short Term Goal (STG Pt will demonstrate improved balance with B SLS 30s on ) stable surface without UE suppport STG Duration 6 weeks Bus And Rail Operator Goal (LTG) Pt will demonstrate improved balance with B SLS 60s on stable surface without UE support LTG Duration 12 weeks 2. Impairment Strength Impairment BLE strength Short Term Goal (STG Pt will improve BLE strength by 2 MMT scores to improve ) functional mobility STG Duration 6 weeks Bus And Rail Operator Goal (LTG) Pt will demonstrate picking up 10 objects from floor during session with good form and without onset of pain . LTG Duration 12 weeks 1. Impairment ROM Impairment Decreased B quad/HS length Short Term Goal (STG Pt will improve prone heel to buttock length by 2 for ) improved quad length and functional mobility STG Duration 6 weeks Bus And Rail Operator Goal (LTG) Pt will improve prone heel to buttock length by 4 for improved quad length and functional mobility LTG Duration 12 weeks Assessment Summary Assessment Pt ambulating much better, very happy with her recent progress. Provided handout for clamshell, reverse clamshell, and open book. Continue to focus on functional mobility, hip/core strengthening, and lumbar mobility. Physical Therapy Plan Frequency and Duration Frequency of 2-3x/wk Treatment Duration of 12 treatment (weeks) Plan of Care Start 10/27/24 Date Plan of Care End 01/19/25 Date Therapeutic Interventions Therapeutic Balance Training,Gait Training,Home Exercise Program, Interventions Manual Therapy,Neuromuscular Re-education,Soft Tissue Mobilization,Taping,Therapeutic Activities,Therapeutic Exercises Modalities Cold Pack/Ice Massage,Electric Stimulation,Hot Packs, Infrared Therapy,Traction- Mechanical,Ultrasound Next Visit Focus/Plan Next Note Type Treatment Note Next Visit Plan Manual B quad stretches, B hip strengthening, core strengthening with PPT
--- NOTE | 2024-11-10 12:37 | PT.OTN ---
Current Diagnoses Other intervertebral disc degeneration, lumbosacral region with discogenic back pain and lower extremity pain (11/10/24) Radiculopathy, lumbar region (11/10/24) Physical Therapy Treatment Note PT-OP-A Visit Information Start: 10/27/24 10:21 Freq: Status: Active Protocol: Document 11/10/24 11:33 MICROELECTRONICS ENGINEER (Rec: 11/10/24 12:37 MICROELECTRONICS ENGINEER Laptop) Out-Patient Physical Therapy Visit Information Visit Information Visit Type Treatment Note Visit Start Time 11:33 Visit Stop Time 12:18 Visit Number 5 Number of TNT LINE SUPERVISOR Visits 0 Evaluation Information Evaluation Date 10/27/24 Precautions Precautions Mild Fall risk PT-OP-B Current Condition Start: 10/27/24 10:21 Freq: Status: Active Protocol: Document 10/27/24 10:23 MICROELECTRONICS ENGINEER (Rec: 10/27/24 12:55 MICROELECTRONICS ENGINEER Laptop) Current Condition History of Current Condition Onset Date 3 years ago Current Complaints low back pain, difficulty bending and lifting History of Current 3 years ago had B leg weakness and falls, had MRI and Condition found a herniated disc at L3-L4 and had emergency surgery. Prior Treatments and R PATTI 2016 ant approach Tests Treatment Goals Patient/Caregiver Pt reports he daughter has been sick and she needs to Goals go to [place] (36 hour trip) to take care of daughter December 08 for unknown amount of time. Pt reports she wakes up with back pain and uses ice or heat for pain management. She feels stiff in the morning and but better once she gets up and starts walking around. Pt reports she feels like she's leaning to her R and feels off balance when standing on her R leg. Pt has 3 stairs into her garage with 1 rail, has had a fall down front steps without a rail. Pt reports she normally walks about 2-3 miles a day, now walks about 3,000 steps a day. Pt reports bending and lifting cause back pain to be worse. 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 PT-OP-C Subjective Start: 10/27/24 10:21 Freq: Status: Active Protocol: Document 11/10/24 11:33 MICROELECTRONICS ENGINEER (Rec: 11/10/24 12:37 MICROELECTRONICS ENGINEER Laptop) OP-PT Subjective Patient Comments Patient Comments Pt reports she was doing exercises and feeling really good but then got a massage and it flared up her pain and was in 8/10 pain in L hand down to middle finger and was unable to sleep well but able to reduce pain this morning. PT-OP-D Balance Start: 10/27/24 10:21 Freq: Status: Active Protocol: Document 10/27/24 10:23 MICROELECTRONICS ENGINEER (Rec: 10/27/24 12:55 MICROELECTRONICS ENGINEER Laptop) Balance Tests Single Limb Standing Single Limb- Right 9s with support on other leg Single Limb- Left 2s PT-OP-F Manual Assessment Start: 10/27/24 10:21 Freq: Status: Active Protocol: Document 10/27/24 10:23 MICROELECTRONICS ENGINEER (Rec: 10/27/24 12:55 MICROELECTRONICS ENGINEER Laptop) Manual Assessments Soft Tissue Assessment Soft Tissue Mobility Decreased soft tissue mobility to R lumbar paraspinals Assessment and R and L glute/piriformis with TTP to R lumbar paraspinals PT-OP-G Mobility & Gait Start: 10/27/24 10:21 Freq: Status: Active Protocol: Document 10/27/24 10:23 MICROELECTRONICS ENGINEER (Rec: 10/27/24 12:55 MICROELECTRONICS ENGINEER Laptop) OP Gait Assessment Comments Gait Comments Weight shift and lean to R side including lean to L hip and shoulder elevated, slight unsteadiness of gait but without LOB Stair Climbing Evaluation Comments Stair Climbing 6 stairs with 1 HR Comments Ascend and descend normal reciprocal pattern with B hip drop d/t weakness R>L PT-OP-H Neuro Start: 10/27/24 10:21 Freq: Status: Active Protocol: Document 10/27/24 10:23 MICROELECTRONICS ENGINEER (Rec: 10/27/24 12:55 MICROELECTRONICS ENGINEER Laptop) Sensation Evaluation Comments Summary Comments Reports tingling at times in her mid back but at this time no N/T anywhere PT-OP-L Special Tests Start: 10/27/24 10:21 Freq: Status: Active Protocol: Document 10/27/24 10:23 MICROELECTRONICS ENGINEER (Rec: 10/27/24 12:55 MICROELECTRONICS ENGINEER Laptop) Special Tests Lumbar Spine Special Tests Slump Test Results Positive on L Comments mildly positive PT-OP-M Strength Start: 10/27/24 10:21 Freq: Status: Active Protocol: Document 10/27/24 10:23 MICROELECTRONICS ENGINEER (Rec: 10/27/24 12:55 MICROELECTRONICS ENGINEER Laptop) Hip Strength Hip Manual Muscle Testing L Flexion (L2) 4 Good Extension (S1) 4- Good- Abduction 4 Good Comments Prone RLE heel to buttock: 14 Prone LLE heel to buttock: 11.5 R Flexion (L2) 4 Good Extension (S1) 3- Fair- Abduction 4- Good- Knee Strength Knee Manual Muscle Testing L Flexion (S2) 3+ Fair+ Extension (L3) 4 Good R Flexion (S2) 4 Good Extension (L3) 4- Good- Ankle/Foot Strength Ankle and Foot Manual Muscle Testing L Dorsiflexion (L4) 4- Good- R Dorsiflexion (L4) 4 Good PT-OP-Q Treatments Start: 10/27/24 10:21 Freq: Status: Active Protocol: Document 11/10/24 11:33 MICROELECTRONICS ENGINEER (Rec: 11/10/24 12:37 MICROELECTRONICS ENGINEER Laptop) Cardio Equipment Recumbent Stepper (Sci-Fit) Duration (Minutes) 6 Resistance L1 d/t increased pain in morning Other Warm up on NuStep Therapeutic Exercises Supine Exercises Stretching Supine Exercise Name Adductor stretch 1LE at a time Side bilateral Reps/Minutes 60s x2 each side Sitting Exercises Clamshells Side bilateral Resistance L3 TB Reps/Minutes x10 with 5s hold Comments After increased pain at TFL during stretch with improved pain Standing Exercises Stretch Standing Exercise TFL Name Side right Reps/Minutes 30sx2 Comments Increased pain to R lumbar on second set Manual Therapy Treatment Consent Patient gave verbal Yes consent for manual treatment Soft Tissue Mobilization Hip Body Location TFL Mobilization Type Cross-Friction,Rolling,Strain/Counterstrain Intensity/Depth Moderate Body Position Sidelying Comments SCS 90s x1 without change in pain PT-OP-T Assessment and Plan Start: 10/27/24 10:21 Freq: Status: Active Protocol: Document 11/10/24 11:33 MICROELECTRONICS ENGINEER (Rec: 11/10/24 12:37 MICROELECTRONICS ENGINEER Laptop) Physical Therapy Assessment Impairments Impairments Activity Tolerance,Balance,Functional Activities, Functional Mobility,Gait,Pain,ROM,Soft Tissue Mobility, Strength Goals 4. Impairment Function Impairment oswestry low back pain Short Term Goal (STG Pt will improve oswestry score from 22% to 50% to ) improve functional mobility STG Duration 6 weeks Fire Alarm Mechanic Goal (LTG) Pt will improve oswestry score from 22% to 75% to improve functional mobility LTG Duration 12 weeks 3. Impairment Balance Impairment SLS Short Term Goal (STG Pt will demonstrate improved balance with B SLS 30s on ) stable surface without UE suppport STG Duration 6 weeks Fire Alarm Mechanic Goal (LTG) Pt will demonstrate improved balance with B SLS 60s on stable surface without UE support LTG Duration 12 weeks 2. Impairment Strength Impairment BLE strength Short Term Goal (STG Pt will improve BLE strength by 2 MMT scores to improve ) functional mobility STG Duration 6 weeks Longterm Goal (LTG) Pt will demonstrate picking up 10 objects from floor during session with good form and without onset of pain . LTG Duration 12 weeks 1. Impairment ROM Impairment Decreased B quad/HS length Short Term Goal (STG Pt will improve prone heel to buttock length by 2 for ) improved quad length and functional mobility STG Duration 6 weeks Longterm Goal (LTG) Pt will improve prone heel to buttock length by 4 for improved quad length and functional mobility LTG Duration 12 weeks Assessment Summary Assessment Pt with increased pain this session after flare up following massage appointment. Pt tolerated hip stretches and STM to R TFL, attempted x1 set of strain counterstrain technique to R TFL with minimal improvement but would benefit from another trial. Pt did not tolerate standing TFL stretch well d/t increased pain in lumbar muscles but tolerated clamshells for rotation of femurs and less tension of femoral head on TFL. Continue working on hip strengthening, flexibility, and core strength. Physical Therapy Plan Frequency and Duration Frequency of 2-3x/wk Treatment Duration of 12 treatment (weeks) Plan of Care Start 10/27/24 Date Plan of Care End 01/19/25 Date Therapeutic Interventions Therapeutic Balance Training,Gait Training,Home Exercise Program, Interventions Manual Therapy,Neuromuscular Re-education,Soft Tissue Mobilization,Taping,Therapeutic Activities,Therapeutic Exercises Modalities Cold Pack/Ice Massage,Electric Stimulation,Hot Packs, Infrared Therapy,Traction- Mechanical,Ultrasound Next Visit Focus/Plan Next Note Type Treatment Note Next Visit Plan STM to R TFL, R lumbar paraspinals, B quad stretch, reattempt SCS to R TFL
--- NOTE | 2024-11-12 20:16 | PT.OTN ---
Current Diagnoses Other intervertebral disc degeneration, lumbosacral region with discogenic back pain and lower extremity pain (11/12/24) Radiculopathy, lumbar region (11/12/24) Physical Therapy Treatment Note PT-OP-A Visit Information Start: 10/27/24 10:21 Freq: Status: Active Protocol: Document 11/12/24 14:28 MUCKER OPERATOR (Rec: 11/12/24 15:20 MUCKER OPERATOR Laptop) Out-Patient Physical Therapy Visit Information Visit Information Visit Type Treatment Note Visit Start Time 14:31 Visit Stop Time 15:19 Visit Number 6 Number of [employer] COMMUNICATIONS ADMINISTRATOR Visits 0 Evaluation Information Evaluation Date 10/27/24 Precautions Precautions Mild Fall risk PT-OP-B Current Condition Start: 10/27/24 10:21 Freq: Status: Active Protocol: Document 10/27/24 10:23 MUCKER OPERATOR (Rec: 10/27/24 12:55 MUCKER OPERATOR Laptop) Current Condition History of Current Condition Onset Date 3 years ago Current Complaints low back pain, difficulty bending and lifting History of Current 3 years ago had B leg weakness and falls, had MRI and Condition found a herniated disc at L3-L4 and had emergency surgery. Prior Treatments and R PATTI 2016 ant approach Tests Treatment Goals Patient/Caregiver Pt reports he daughter has been sick and she needs to Goals go to [place] (36 hour trip) to take care of daughter December 08 for unknown amount of time. Pt reports she wakes up with back pain and uses ice or heat for pain management. She feels stiff in the morning and but better once she gets up and starts walking around. Pt reports she feels like she's leaning to her R and feels off balance when standing on her R leg. Pt has 3 stairs into her garage with 1 rail, has had a fall down front steps without a rail. Pt reports she normally walks about 2-3 miles a day, now walks about 3,000 steps a day. Pt reports bending and lifting cause back pain to be worse. 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 PT-OP-C Subjective Start: 10/27/24 10:21 Freq: Status: Active Protocol: Document 11/12/24 14:28 MUCKER OPERATOR (Rec: 11/12/24 15:20 MUCKER OPERATOR Laptop) OP-PT Subjective Patient Comments Patient Comments Pt reports the MT performed on R hip last session helped and would like to do it again this session. HEP has been helping to reduce pain PT-OP-D Balance Start: 10/27/24 10:21 Freq: Status: Active Protocol: Document 10/27/24 10:23 MUCKER OPERATOR (Rec: 10/27/24 12:55 MUCKER OPERATOR Laptop) Balance Tests Single Limb Standing Single Limb- Right 9s with support on other leg Single Limb- Left 2s PT-OP-F Manual Assessment Start: 10/27/24 10:21 Freq: Status: Active Protocol: Document 10/27/24 10:23 MUCKER OPERATOR (Rec: 10/27/24 12:55 MUCKER OPERATOR Laptop) Manual Assessments Soft Tissue Assessment Soft Tissue Mobility Decreased soft tissue mobility to R lumbar paraspinals Assessment and R and L glute/piriformis with TTP to R lumbar paraspinals PT-OP-G Mobility & Gait Start: 10/27/24 10:21 Freq: Status: Active Protocol: Document 10/27/24 10:23 MUCKER OPERATOR (Rec: 10/27/24 12:55 MUCKER OPERATOR Laptop) OP Gait Assessment Comments Gait Comments Weight shift and lean to R side including lean to L hip and shoulder elevated, slight unsteadiness of gait but without LOB Stair Climbing Evaluation Comments Stair Climbing 6 stairs with 1 HR Comments Ascend and descend normal reciprocal pattern with B hip drop d/t weakness R>L PT-OP-H Neuro Start: 10/27/24 10:21 Freq: Status: Active Protocol: Document 10/27/24 10:23 MUCKER OPERATOR (Rec: 10/27/24 12:55 MUCKER OPERATOR Laptop) Sensation Evaluation Comments Summary Comments Reports tingling at times in her mid back but at this time no N/T anywhere PT-OP-L Special Tests Start: 10/27/24 10:21 Freq: Status: Active Protocol: Document 10/27/24 10:23 MUCKER OPERATOR (Rec: 10/27/24 12:55 MUCKER OPERATOR Laptop) Special Tests Lumbar Spine Special Tests Slump Test Results Positive on L Comments mildly positive PT-OP-M Strength Start: 10/27/24 10:21 Freq: Status: Active Protocol: Document 10/27/24 10:23 MUCKER OPERATOR (Rec: 10/27/24 12:55 MUCKER OPERATOR Laptop) Hip Strength Hip Manual Muscle Testing L Flexion (L2) 4 Good Extension (S1) 4- Good- Abduction 4 Good Comments Prone RLE heel to buttock: 14 Prone LLE heel to buttock: 11.5 R Flexion (L2) 4 Good Extension (S1) 3- Fair- Abduction 4- Good- Knee Strength Knee Manual Muscle Testing L Flexion (S2) 3+ Fair+ Extension (L3) 4 Good R Flexion (S2) 4 Good Extension (L3) 4- Good- Ankle/Foot Strength Ankle and Foot Manual Muscle Testing L Dorsiflexion (L4) 4- Good- R Dorsiflexion (L4) 4 Good PT-OP-Q Treatments Start: 10/27/24 10:21 Freq: Status: Active Protocol: Document 11/12/24 14:28 MUCKER OPERATOR (Rec: 11/12/24 15:20 MUCKER OPERATOR Laptop) Cardio Equipment Recumbent Stepper (Sci-Fit) Duration (Minutes) 5 Resistance L3 Other Warm up on NuStep Therapeutic Exercises Sitting Exercises Sit<>stands Side bilateral Resistance L2 TB around knees for glute med engagement Reps/Minutes 10x2 Comments VC for chest upright and post WS through heels Clamshells Side bilateral Resistance L2 TB Reps/Minutes x20 with 5s hold Comments After increased pain at TFL during stretch with improved pain Standing Exercises Hip Abd Side bilateral Reps/Minutes x20 Comments Added to HEP, VC to maintain level pelvis and engage core Marching Side bilateral Reps/Minutes x20 Comments Added to HEP, VC to maintain level pelvis and engage core Hip Extension Side bilateral Reps/Minutes x20 Comments Added to HEP, VC to not lean forward and engage core Manual Therapy Treatment Consent Patient gave verbal Yes consent for manual treatment Soft Tissue Mobilization Hip Body Location R Greater trochanter, TFL, ITB Intensity/Depth Deep Body Position Sidelying Comments ice massage PT-OP-T Assessment and Plan Start: 10/27/24 10:21 Freq: Status: Active Protocol: Document 11/12/24 14:28 MUCKER OPERATOR (Rec: 11/12/24 15:20 MUCKER OPERATOR Laptop) Physical Therapy Assessment Impairments Impairments Activity Tolerance,Balance,Functional Activities, Functional Mobility,Gait,Pain,ROM,Soft Tissue Mobility, Strength Goals 4. Impairment Function Impairment oswestry low back pain Short Term Goal (STG Pt will improve oswestry score from 22% to 50% to ) improve functional mobility STG Duration 6 weeks Lvn Goal (LTG) Pt will improve oswestry score from 22% to 75% to improve functional mobility LTG Duration 12 weeks 3. Impairment Balance Impairment SLS Short Term Goal (STG Pt will demonstrate improved balance with B SLS 30s on ) stable surface without UE suppport STG Duration 6 weeks Lvn Goal (LTG) Pt will demonstrate improved balance with B SLS 60s on stable surface without UE support LTG Duration 12 weeks 2. Impairment Strength Impairment BLE strength Short Term Goal (STG Pt will improve BLE strength by 2 MMT scores to improve ) functional mobility STG Duration 6 weeks Fdc Goal (LTG) Pt will demonstrate picking up 10 objects from floor during session with good form and without onset of pain . LTG Duration 12 weeks 1. Impairment ROM Impairment Decreased B quad/HS length Short Term Goal (STG Pt will improve prone heel to buttock length by 2 for ) improved quad length and functional mobility STG Duration 6 weeks Fdc Goal (LTG) Pt will improve prone heel to buttock length by 4 for improved quad length and functional mobility LTG Duration 12 weeks Progress Towards Goals Progress Towards Progressing Toward Goals Goals Assessment Summary Assessment Pt tolerated ice massage to R greater trochanter well and was able to tolerate greater pressure with ice than without ice during STM. Pt continues to have increased pain at R greater trochanter, TFL, and ITB d/t position of femur in part caused by weak ERs and will benefit from emphasis on glute med strengthening. Pt feels less pain when performing seated clamshells for activation of glute med and performed standing hip exercises well directly following with mod cues for core and hip stability during. Pt reports decreased pain after session. Pt is progressing fairly, continue skilled PT to progress towards goals. Physical Therapy Plan Frequency and Duration Frequency of 2-3x/wk Treatment Duration of 12 treatment (weeks) Plan of Care Start 10/27/24 Date Plan of Care End 01/19/25 Date Therapeutic Interventions Therapeutic Balance Training,Gait Training,Home Exercise Program, Interventions Manual Therapy,Neuromuscular Re-education,Soft Tissue Mobilization,Taping,Therapeutic Activities,Therapeutic Exercises Modalities Cold Pack/Ice Massage,Electric Stimulation,Hot Packs, Infrared Therapy,Traction- Mechanical,Ultrasound Next Visit Focus/Plan Next Note Type Treatment Note Next Visit Plan ice massage to R greater trochanter and TFL, STM to R ITB, prone core stabilizing exercises
--- NOTE | 2024-11-17 16:17 | PT.OTN ---
Current Diagnoses Other intervertebral disc degeneration, lumbosacral region with discogenic back pain and lower extremity pain (11/17/24) Radiculopathy, lumbar region (11/17/24) Physical Therapy Treatment Note PT-OP-A Visit Information Start: 10/27/24 10:21 Freq: Status: Active Protocol: Document 11/17/24 14:51 NBM (Rec: 11/17/24 16:17 NBM Laptop) Out-Patient Physical Therapy Visit Information Visit Information Visit Type Treatment Note Visit Start Time 14:40 Visit Stop Time 15:30 Visit Number 7 Number of INSURANCE ADJUSTER Visits 1 Evaluation Information Evaluation Date 10/27/24 Precautions Precautions Mild Fall risk PT-OP-B Current Condition Start: 10/27/24 10:21 Freq: Status: Active Protocol: Document 10/27/24 10:23 ELECTRIC MOTOR FITTER (Rec: 10/27/24 12:55 ELECTRIC MOTOR FITTER Laptop) Current Condition History of Current Condition Onset Date 3 years ago Current Complaints low back pain, difficulty bending and lifting History of Current 3 years ago had B leg weakness and falls, had MRI and Condition found a herniated disc at L3-L4 and had emergency surgery. Prior Treatments and R PATTI 2016 ant approach Tests Treatment Goals Patient/Caregiver Pt reports he daughter has been sick and she needs to Goals go to [place] (36 hour trip) to take care of daughter December 08 for unknown amount of time. Pt reports she wakes up with back pain and uses ice or heat for pain management. She feels stiff in the morning and but better once she gets up and starts walking around. Pt reports she feels like she's leaning to her R and feels off balance when standing on her R leg. Pt has 3 stairs into her garage with 1 rail, has had a fall down front steps without a rail. Pt reports she normally walks about 2-3 miles a day, now walks about 3,000 steps a day. Pt reports bending and lifting cause back pain to be worse. 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 PT-OP-C Subjective Start: 10/27/24 10:21 Freq: Status: Active Protocol: Document 11/17/24 14:51 NBM (Rec: 11/17/24 16:17 NBM Laptop) OP-PT Subjective Patient Comments Patient Comments MJ reports the ice cup massage felt very good and she liked using the band above her hips. She gets spasms on the inside of her thigh when she does too much. Today her shoulders and arms are hurting the most, but otherwise it's her hips and back. She wants to be strong enough to support her daughter in [place] when she flies out to care for her next month. PT-OP-D Balance Start: 10/27/24 10:21 Freq: Status: Active Protocol: Document 10/27/24 10:23 ELECTRIC MOTOR FITTER (Rec: 10/27/24 12:55 ELECTRIC MOTOR FITTER Laptop) Balance Tests Single Limb Standing Single Limb- Right 9s with support on other leg Single Limb- Left 2s PT-OP-F Manual Assessment Start: 10/27/24 10:21 Freq: Status: Active Protocol: Document 10/27/24 10:23 ELECTRIC MOTOR FITTER (Rec: 10/27/24 12:55 ELECTRIC MOTOR FITTER Laptop) Manual Assessments Soft Tissue Assessment Soft Tissue Mobility Decreased soft tissue mobility to R lumbar paraspinals Assessment and R and L glute/piriformis with TTP to R lumbar paraspinals PT-OP-G Mobility & Gait Start: 10/27/24 10:21 Freq: Status: Active Protocol: Document 10/27/24 10:23 ELECTRIC MOTOR FITTER (Rec: 10/27/24 12:55 ELECTRIC MOTOR FITTER Laptop) OP Gait Assessment Comments Gait Comments Weight shift and lean to R side including lean to L hip and shoulder elevated, slight unsteadiness of gait but without LOB Stair Climbing Evaluation Comments Stair Climbing 6 stairs with 1 HR Comments Ascend and descend normal reciprocal pattern with B hip drop d/t weakness R>L PT-OP-H Neuro Start: 10/27/24 10:21 Freq: Status: Active Protocol: Document 10/27/24 10:23 ELECTRIC MOTOR FITTER (Rec: 10/27/24 12:55 ELECTRIC MOTOR FITTER Laptop) Sensation Evaluation Comments Summary Comments Reports tingling at times in her mid back but at this time no N/T anywhere PT-OP-L Special Tests Start: 10/27/24 10:21 Freq: Status: Active Protocol: Document 10/27/24 10:23 ELECTRIC MOTOR FITTER (Rec: 10/27/24 12:55 ELECTRIC MOTOR FITTER Laptop) Special Tests Lumbar Spine Special Tests Slump Test Results Positive on L Comments mildly positive PT-OP-M Strength Start: 10/27/24 10:21 Freq: Status: Active Protocol: Document 10/27/24 10:23 ELECTRIC MOTOR FITTER (Rec: 10/27/24 12:55 ELECTRIC MOTOR FITTER Laptop) Hip Strength Hip Manual Muscle Testing L Flexion (L2) 4 Good Extension (S1) 4- Good- Abduction 4 Good Comments Prone RLE heel to buttock: 14 Prone LLE heel to buttock: 11.5 R Flexion (L2) 4 Good Extension (S1) 3- Fair- Abduction 4- Good- Knee Strength Knee Manual Muscle Testing L Flexion (S2) 3+ Fair+ Extension (L3) 4 Good R Flexion (S2) 4 Good Extension (L3) 4- Good- Ankle/Foot Strength Ankle and Foot Manual Muscle Testing L Dorsiflexion (L4) 4- Good- R Dorsiflexion (L4) 4 Good PT-OP-Q Treatments Start: 10/27/24 10:21 Freq: Status: Active Protocol: Document 11/17/24 14:51 NBM (Rec: 11/17/24 16:17 NBM Laptop) Therapeutic Exercises Supine Exercises hip adduction Supine Exercise Name ball squeeze Side bilateral Equipment Used small green ball Reps/Minutes 10 x 1 breathcycle hold Comments R adduction pain resolves w/ cues for painfree range and breathwork. Stretching Supine Exercise Name 1. Hamstring 2. TFL/IT band 3.Verbal i/s gentle hip flexor stretch in lunge Side right Equipment Used /c strap Reps/Minutes 20s ea Comments small pain-free range, cues to stay within painfree ROM Manual Therapy Treatment Consent Patient gave verbal Yes consent for manual treatment Soft Tissue Mobilization Hip Body Location R Greater trochanter, TFL, ITB, adductors Mobilization Type Cross-Friction,Instrument Assisted,Rolling Intensity/Depth Deep Body Position Sidelying Comments ice massage 7' STM to R TFL, ITB and adductors w/ positive feedback response. rolling pin to R TFL and ITB. I/s pt in self-STM w/ rolling pin to R TFL, ITB, adductors, quads, hamstrings. Self-Care/Home Management Treatment Education Patient Education Body Mechanics,Home Exercise Program,Pain Management, Safety Other Education Verbally i/s pt in ice cup massage for home use. Verbal review of sidelying sleep positioning and pillow supports - pt encouraged to add a pillow between ankles or a longer pillow that supports both knees and ankles. Edu to pt for performing ex's and stretches in painfree range only. Edu to pt re: interrelationship between diaphragm, TrA, pelvic floor and hip adductors, and importance of not holding breath with hip adduction. PT-OP-T Assessment and Plan Start: 10/27/24 10:21 Freq: Status: Active Protocol: Document 11/17/24 14:51 NBM (Rec: 11/17/24 16:17 NBM Laptop) Physical Therapy Assessment Goals 4. Impairment Function Impairment oswestry low back pain Short Term Goal (STG Pt will improve oswestry score from 22% to 50% to ) improve functional mobility STG Duration 6 weeks Forensic Pathologist Goal (LTG) Pt will improve oswestry score from 22% to 75% to improve functional mobility LTG Duration 12 weeks 3. Impairment Balance Impairment SLS Short Term Goal (STG Pt will demonstrate improved balance with B SLS 30s on ) stable surface without UE suppport STG Duration 6 weeks Group Home Goal (LTG) Pt will demonstrate improved balance with B SLS 60s on stable surface without UE support LTG Duration 12 weeks 2. Impairment Strength Impairment BLE strength Short Term Goal (STG Pt will improve BLE strength by 2 MMT scores to improve ) functional mobility STG Duration 6 weeks Group Home Goal (LTG) Pt will demonstrate picking up 10 objects from floor during session with good form and without onset of pain . LTG Duration 12 weeks 1. Impairment ROM Impairment Decreased B quad/HS length Short Term Goal (STG Pt will improve prone heel to buttock length by 2 for ) improved quad length and functional mobility STG Duration 6 weeks Forensic Pathologist Goal (LTG) Pt will improve prone heel to buttock length by 4 for improved quad length and functional mobility LTG Duration 12 weeks Assessment Summary Assessment Treatment focus on manual therapy and self-care. Palpable tension to R TFL and proximal IT band improves with soft tissue mobilization after ice cup massage, and further decreases with self-STM using rolling pin, and pt has positive feedback response. R adduction pain with ball squeeze resolves w/ cues for painfree range and breathwork. Education to pt on performing HEP in pain-free range only and with breathwork.
--- NOTE | 2024-11-19 20:51 | PT.OTN ---
Current Diagnoses Other intervertebral disc degeneration, lumbosacral region with discogenic back pain and lower extremity pain (11/19/24) Radiculopathy, lumbar region (11/19/24) Physical Therapy Treatment Note PT-OP-A Visit Information Start: 10/27/24 10:21 Freq: Status: Active Protocol: Document 11/19/24 14:41 SEA CAPTAIN (Rec: 11/19/24 15:27 SEA CAPTAIN Laptop) Out-Patient Physical Therapy Visit Information Visit Information Visit Type Treatment Note Visit Start Time 14:36 Visit Stop Time 15:18 Visit Number 8 Number of RECEIVING LEAD Visits 0 Evaluation Information Evaluation Date 10/27/24 Precautions Precautions Mild Fall risk PT-OP-B Current Condition Start: 10/27/24 10:21 Freq: Status: Active Protocol: Document 10/27/24 10:23 SEA CAPTAIN (Rec: 10/27/24 12:55 SEA CAPTAIN Laptop) Current Condition History of Current Condition Onset Date 3 years ago Current Complaints low back pain, difficulty bending and lifting History of Current 3 years ago had B leg weakness and falls, had MRI and Condition found a herniated disc at L3-L4 and had emergency surgery. Prior Treatments and R PATTI 2016 ant approach Tests Treatment Goals Patient/Caregiver Pt reports he daughter has been sick and she needs to Goals go to [place] (36 hour trip) to take care of daughter December 08 for unknown amount of time. Pt reports she wakes up with back pain and uses ice or heat for pain management. She feels stiff in the morning and but better once she gets up and starts walking around. Pt reports she feels like she's leaning to her R and feels off balance when standing on her R leg. Pt has 3 stairs into her garage with 1 rail, has had a fall down front steps without a rail. Pt reports she normally walks about 2-3 miles a day, now walks about 3,000 steps a day. Pt reports bending and lifting cause back pain to be worse. 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 PT-OP-C Subjective Start: 10/27/24 10:21 Freq: Status: Active Protocol: Document 11/19/24 14:41 SEA CAPTAIN (Rec: 11/19/24 20:40 SEA CAPTAIN Laptop) OP-PT Subjective Patient Comments Patient Comments Pt reports ice massage has been really helping her pain and feels like she has HEP and knowledge to be able to perform and maintain while on trip out of country leaving December 07. Reports she has been feeling a lot better with pain and strength except carrying groceries in from car yesterday caused a big flare up of pain in BUEs this morning. Pain is currently 3/10 in L hand. Patient Reported Improving Progress PT-OP-D Balance Start: 10/27/24 10:21 Freq: Status: Active Protocol: Document 10/27/24 10:23 SEA CAPTAIN (Rec: 10/27/24 12:55 SEA CAPTAIN Laptop) Balance Tests Single Limb Standing Single Limb- Right 9s with support on other leg Single Limb- Left 2s PT-OP-F Manual Assessment Start: 10/27/24 10:21 Freq: Status: Active Protocol: Document 10/27/24 10:23 SEA CAPTAIN (Rec: 10/27/24 12:55 SEA CAPTAIN Laptop) Manual Assessments Soft Tissue Assessment Soft Tissue Mobility Decreased soft tissue mobility to R lumbar paraspinals Assessment and R and L glute/piriformis with TTP to R lumbar paraspinals PT-OP-G Mobility & Gait Start: 10/27/24 10:21 Freq: Status: Active Protocol: Document 10/27/24 10:23 SEA CAPTAIN (Rec: 10/27/24 12:55 SEA CAPTAIN Laptop) OP Gait Assessment Comments Gait Comments Weight shift and lean to R side including lean to L hip and shoulder elevated, slight unsteadiness of gait but without LOB Stair Climbing Evaluation Comments Stair Climbing 6 stairs with 1 HR Comments Ascend and descend normal reciprocal pattern with B hip drop d/t weakness R>L PT-OP-H Neuro Start: 10/27/24 10:21 Freq: Status: Active Protocol: Document 10/27/24 10:23 SEA CAPTAIN (Rec: 10/27/24 12:55 SEA CAPTAIN Laptop) Sensation Evaluation Comments Summary Comments Reports tingling at times in her mid back but at this time no N/T anywhere PT-OP-L Special Tests Start: 10/27/24 10:21 Freq: Status: Active Protocol: Document 10/27/24 10:23 SEA CAPTAIN (Rec: 10/27/24 12:55 SEA CAPTAIN Laptop) Special Tests Lumbar Spine Special Tests Slump Test Results Positive on L Comments mildly positive PT-OP-M Strength Start: 10/27/24 10:21 Freq: Status: Active Protocol: Document 10/27/24 10:23 SEA CAPTAIN (Rec: 10/27/24 12:55 SEA CAPTAIN Laptop) Hip Strength Hip Manual Muscle Testing L Flexion (L2) 4 Good Extension (S1) 4- Good- Abduction 4 Good Comments Prone RLE heel to buttock: 14 Prone LLE heel to buttock: 11.5 R Flexion (L2) 4 Good Extension (S1) 3- Fair- Abduction 4- Good- Knee Strength Knee Manual Muscle Testing L Flexion (S2) 3+ Fair+ Extension (L3) 4 Good R Flexion (S2) 4 Good Extension (L3) 4- Good- Ankle/Foot Strength Ankle and Foot Manual Muscle Testing L Dorsiflexion (L4) 4- Good- R Dorsiflexion (L4) 4 Good PT-OP-Q Treatments Start: 10/27/24 10:21 Freq: Status: Active Protocol: Document 11/19/24 14:41 SEA CAPTAIN (Rec: 11/19/24 15:27 SEA CAPTAIN Laptop) Cardio Equipment Recumbent Stepper (Sci-Fit) Duration (Minutes) 5 Resistance L5 Other Warm up on NuStep BUEs and BLEs Therapeutic Exercises Supine Exercises Bridges Supine Exercise Name Attempted /c unilateral leg extension, caused cramping Side bilateral Reps/Minutes x10 Comments VCs for glute contraction, TA contraction, and breathing Sitting Exercises Sit<>stands Side bilateral Resistance L2 TB around knees for glute med engagement Reps/Minutes 10x2 Comments VC for chest upright and post WS through heels Clamshells Side bilateral Resistance L2 TB Reps/Minutes x20 with 5s hold Comments After increased pain at TFL during stretch with improved pain Manual Therapy Treatment Consent Patient gave verbal Yes consent for manual treatment Soft Tissue Mobilization Hip Body Location R Greater trochanter, TFL, ITB Mobilization Type Cross-Friction,Instrument Assisted,Rolling Intensity/Depth Deep Body Position Sidelying Comments ice massage STM to R TFL, and origin and insertion of ITB PT-OP-T Assessment and Plan Start: 10/27/24 10:21 Freq: Status: Active Protocol: Document 11/19/24 14:41 SEA CAPTAIN (Rec: 11/19/24 15:27 SEA CAPTAIN Laptop) Physical Therapy Assessment Impairments Impairments Activity Tolerance,Balance,Functional Activities, Functional Mobility,Gait,Pain,ROM,Soft Tissue Mobility, Strength Goals 4. Impairment Function Impairment oswestry low back pain Short Term Goal (STG Pt will improve oswestry score from 22% to 50% to ) improve functional mobility STG Duration 6 weeks Usp Goal (LTG) Pt will improve oswestry score from 22% to 75% to improve functional mobility LTG Duration 12 weeks 3. Impairment Balance Impairment SLS Short Term Goal (STG Pt will demonstrate improved balance with B SLS 30s on ) stable surface without UE suppport STG Duration 6 weeks Meatman Goal (LTG) Pt will demonstrate improved balance with B SLS 60s on stable surface without UE support LTG Duration 12 weeks 2. Impairment Strength Impairment BLE strength Short Term Goal (STG Pt will improve BLE strength by 2 MMT scores to improve ) functional mobility STG Duration 6 weeks Usp Goal (LTG) Pt will demonstrate picking up 10 objects from floor during session with good form and without onset of pain . LTG Duration 12 weeks 1. Impairment ROM Impairment Decreased B quad/HS length Short Term Goal (STG Pt will improve prone heel to buttock length by 2 for ) improved quad length and functional mobility STG Duration 6 weeks Usp Goal (LTG) Pt will improve prone heel to buttock length by 4 for improved quad length and functional mobility LTG Duration 12 weeks Progress Towards Goals Progress Towards Progressing Toward Goals Goals Assessment Summary Assessment Pt continues to improve pain to R TFL and ITB after ice cup massage and STM, tolerating increased pressure after ice massage. Pt with improved B glute med strength and form during sit<>stands. Physical Therapy Plan Frequency and Duration Frequency of 2-3x/wk Treatment Duration of 12 treatment (weeks) Plan of Care Start 10/27/24 Date Plan of Care End 01/19/25 Date Therapeutic Interventions Therapeutic Balance Training,Gait Training,Home Exercise Program, Interventions Manual Therapy,Neuromuscular Re-education,Soft Tissue Mobilization,Taping,Therapeutic Activities,Therapeutic Exercises Modalities Cold Pack/Ice Massage,Electric Stimulation,Hot Packs, Infrared Therapy,Traction- Mechanical,Ultrasound Next Visit Focus/Plan Next Note Type Treatment Note Next Visit Plan prone core stabilizing exercises, PPT against wall, standing balance
--- NOTE | 2024-11-24 16:03 | PT.OTN ---
Current Diagnoses Other intervertebral disc degeneration, lumbosacral region with discogenic back pain and lower extremity pain (11/24/24) Radiculopathy, lumbar region (11/24/24) Physical Therapy Treatment Note PT-OP-A Visit Information Start: 10/27/24 10:21 Freq: Status: Active Protocol: Document 11/24/24 14:44 NBM (Rec: 11/24/24 16:03 NBM Laptop) Out-Patient Physical Therapy Visit Information Visit Information Visit Type Treatment Note Visit Start Time 14:35 Visit Stop Time 15:25 Visit Number 9 Number of EDI DEVELOPER Visits 1 Evaluation Information Evaluation Date 10/27/24 Precautions Precautions Mild Fall risk PT-OP-B Current Condition Start: 10/27/24 10:21 Freq: Status: Active Protocol: Document 10/27/24 10:23 CVICU NURSE (Rec: 10/27/24 12:55 CVICU NURSE Laptop) Current Condition History of Current Condition Onset Date 3 years ago Current Complaints low back pain, difficulty bending and lifting History of Current 3 years ago had B leg weakness and falls, had MRI and Condition found a herniated disc at L3-L4 and had emergency surgery. Prior Treatments and R PATTI 2016 ant approach Tests Treatment Goals Patient/Caregiver Pt reports he daughter has been sick and she needs to Goals go to [place] (36 hour trip) to take care of daughter December 08 for unknown amount of time. Pt reports she wakes up with back pain and uses ice or heat for pain management. She feels stiff in the morning and but better once she gets up and starts walking around. Pt reports she feels like she's leaning to her R and feels off balance when standing on her R leg. Pt has 3 stairs into her garage with 1 rail, has had a fall down front steps without a rail. Pt reports she normally walks about 2-3 miles a day, now walks about 3,000 steps a day. Pt reports bending and lifting cause back pain to be worse. 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 PT-OP-C Subjective Start: 10/27/24 10:21 Freq: Status: Active Protocol: Document 11/24/24 14:44 NBM (Rec: 11/24/24 16:03 NBM Laptop) OP-PT Subjective Patient Comments Patient Comments MJ reports she has been having painful muscle spasms in the R adductors and L hip and has been afraid to try some exercises in case it triggers the spasms that won' t stop. L hip has been more sore than R lately and today. She has not tried the ice cup massage at home yet, but the rolling pin has been very helpful. PT-OP-D Balance Start: 10/27/24 10:21 Freq: Status: Active Protocol: Document 10/27/24 10:23 CVICU NURSE (Rec: 10/27/24 12:55 CVICU NURSE Laptop) Balance Tests Single Limb Standing Single Limb- Right 9s with support on other leg Single Limb- Left 2s PT-OP-F Manual Assessment Start: 10/27/24 10:21 Freq: Status: Active Protocol: Document 10/27/24 10:23 CVICU NURSE (Rec: 10/27/24 12:55 CVICU NURSE Laptop) Manual Assessments Soft Tissue Assessment Soft Tissue Mobility Decreased soft tissue mobility to R lumbar paraspinals Assessment and R and L glute/piriformis with TTP to R lumbar paraspinals PT-OP-G Mobility & Gait Start: 10/27/24 10:21 Freq: Status: Active Protocol: Document 10/27/24 10:23 CVICU NURSE (Rec: 10/27/24 12:55 CVICU NURSE Laptop) OP Gait Assessment Comments Gait Comments Weight shift and lean to R side including lean to L hip and shoulder elevated, slight unsteadiness of gait but without LOB Stair Climbing Evaluation Comments Stair Climbing 6 stairs with 1 HR Comments Ascend and descend normal reciprocal pattern with B hip drop d/t weakness R>L PT-OP-H Neuro Start: 10/27/24 10:21 Freq: Status: Active Protocol: Document 10/27/24 10:23 CVICU NURSE (Rec: 10/27/24 12:55 CVICU NURSE Laptop) Sensation Evaluation Comments Summary Comments Reports tingling at times in her mid back but at this time no N/T anywhere PT-OP-L Special Tests Start: 10/27/24 10:21 Freq: Status: Active Protocol: Document 10/27/24 10:23 CVICU NURSE (Rec: 10/27/24 12:55 CVICU NURSE Laptop) Special Tests Lumbar Spine Special Tests Slump Test Results Positive on L Comments mildly positive PT-OP-M Strength Start: 10/27/24 10:21 Freq: Status: Active Protocol: Document 10/27/24 10:23 CVICU NURSE (Rec: 10/27/24 12:55 CVICU NURSE Laptop) Hip Strength Hip Manual Muscle Testing L Flexion (L2) 4 Good Extension (S1) 4- Good- Abduction 4 Good Comments Prone RLE heel to buttock: 14 Prone LLE heel to buttock: 11.5 R Flexion (L2) 4 Good Extension (S1) 3- Fair- Abduction 4- Good- Knee Strength Knee Manual Muscle Testing L Flexion (S2) 3+ Fair+ Extension (L3) 4 Good R Flexion (S2) 4 Good Extension (L3) 4- Good- Ankle/Foot Strength Ankle and Foot Manual Muscle Testing L Dorsiflexion (L4) 4- Good- R Dorsiflexion (L4) 4 Good PT-OP-Q Treatments Start: 10/27/24 10:21 Freq: Status: Active Protocol: Document 11/24/24 14:44 NBM (Rec: 11/24/24 16:03 NBM Laptop) Therapeutic Exercises Supine Exercises Bridges Supine Exercise Name DL bridging w/ TrA and breathwork Side bilateral Equipment Used following manual therapy Reps/Minutes x8 w/ breathwork and progressively decreasing cues Comments VCs for foot placement, TA contraction, and breathwork; no cramping Manual Therapy Treatment Consent Patient gave verbal Yes consent for manual treatment Soft Tissue Mobilization Hip Body Location B TFL, ITB, Gluteal medius m.; R Greater trochanter, adductors Mobilization Type Cross-Friction,Rolling,Sustained Pressure,Other Intensity/Depth Moderate Body Position Sidelying Comments ice massage to L hip (TFL, ITB, Gluteal med). STM w/ breathwork - R adductors palpable tension improves; positive feedback response. Self-Care/Home Management Treatment Education Patient Education Body Mechanics,Home Exercise Program,Pain Management, Safety Other Education Verbal review: ice cup massage for home use. Verbal review of sidelying sleep positioning and pillow supports between ankles for full LE alignment. Verbal review to pt re: interrelationship between diaphragm, TrA, pelvic floor and hip adductors, and importance of not holding breath HEP and activity. Significant time spent on incorporating breathwork into bridging HEP - HO given and emailed per pt request. Edu for breathwork for Parasympathetic NS activation to address muscle tension due to pain apprehension and breathholding compensation - R adductor m. palpable tension improves. PT-OP-T Assessment and Plan Start: 10/27/24 10:21 Freq: Status: Active Protocol: Document 11/24/24 14:44 NBM (Rec: 11/24/24 16:03 NBM Laptop) Physical Therapy Assessment Goals 4. Impairment Function Impairment oswestry low back pain Short Term Goal (STG Pt will improve oswestry score from 22% to 50% to ) improve functional mobility STG Duration 6 weeks Assisted Goal (LTG) Pt will improve oswestry score from 22% to 75% to improve functional mobility LTG Duration 12 weeks 3. Impairment Balance Impairment SLS Short Term Goal (STG Pt will demonstrate improved balance with B SLS 30s on ) stable surface without UE suppport STG Duration 6 weeks Die Assembler Goal (LTG) Pt will demonstrate improved balance with B SLS 60s on stable surface without UE support LTG Duration 12 weeks 2. Impairment Strength Impairment BLE strength Short Term Goal (STG Pt will improve BLE strength by 2 MMT scores to improve ) functional mobility STG Duration 6 weeks Assisted Goal (LTG) Pt will demonstrate picking up 10 objects from floor during session with good form and without onset of pain . LTG Duration 12 weeks 1. Impairment ROM Impairment Decreased B quad/HS length Short Term Goal (STG Pt will improve prone heel to buttock length by 2 for ) improved quad length and functional mobility STG Duration 6 weeks Die Assembler Goal (LTG) Pt will improve prone heel to buttock length by 4 for improved quad length and functional mobility LTG Duration 12 weeks Assessment Summary Assessment MJ presents w/ report of L>R hip stiffness and soreness . Pt anticipating discharge next visit. Treatment focus on self-care and manual therapy. Verbal review to pt re: interrelationship between diaphragm, TrA, pelvic floor and hip adductors, and importance of not holding breath HEP and activity. Significant time spent incorporating breathwork into manual therapy and into bridging HEP w/ improved palpable muscle tension to R adductor m. and positive feedback response from pt - HO given and emailed per pt request.
--- NOTE | 2024-11-26 18:00 | PT.OTN ---
Current Diagnoses Other intervertebral disc degeneration, lumbosacral region with discogenic back pain and lower extremity pain (11/26/24) Radiculopathy, lumbar region (11/26/24) Physical Therapy Treatment Note PT-OP-A Visit Information Start: 10/27/24 10:21 Freq: Status: Active Protocol: Document 11/26/24 14:36 BEAM CARRIER HAULER PUSHER (Rec: 11/26/24 15:18 BEAM CARRIER HAULER PUSHER Laptop) Out-Patient Physical Therapy Visit Information Visit Information Visit Type Progress Note Visit Start Time 14:35 Visit Stop Time 15:18 Visit Number 10 Number of SEISMIC ENGINEER Visits 0 Evaluation Information Evaluation Date 10/27/24 Precautions Precautions Mild Fall risk PT-OP-B Current Condition Start: 10/27/24 10:21 Freq: Status: Active Protocol: Document 10/27/24 10:23 BEAM CARRIER HAULER PUSHER (Rec: 10/27/24 12:55 BEAM CARRIER HAULER PUSHER Laptop) Current Condition History of Current Condition Onset Date 3 years ago Current Complaints low back pain, difficulty bending and lifting History of Current 3 years ago had B leg weakness and falls, had MRI and Condition found a herniated disc at L3-L4 and had emergency surgery. Prior Treatments and R PATTI 2016 ant approach Tests Treatment Goals Patient/Caregiver Pt reports he daughter has been sick and she needs to Goals go to [place] (36 hour trip) to take care of daughter December 08 for unknown amount of time. Pt reports she wakes up with back pain and uses ice or heat for pain management. She feels stiff in the morning and but better once she gets up and starts walking around. Pt reports she feels like she's leaning to her R and feels off balance when standing on her R leg. Pt has 3 stairs into her garage with 1 rail, has had a fall down front steps without a rail. Pt reports she normally walks about 2-3 miles a day, now walks about 3,000 steps a day. Pt reports bending and lifting cause back pain to be worse. 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 PT-OP-C Subjective Start: 10/27/24 10:21 Freq: Status: Active Protocol: Document 11/26/24 14:36 BEAM CARRIER HAULER PUSHER (Rec: 11/26/24 15:18 BEAM CARRIER HAULER PUSHER Laptop) OP-PT Subjective Patient Comments Patient Comments MJ reports current 2/10 pain level behind L knee. Pt states she has felt okay since last session but did not do too much after session. She reports practicing the breathing exercises and they help her a lot and ice massage helps tremendously, is planning to do them while on trip to [place]. Pt leaves on 12/07 and plans to come back first of January, is wanting to keep POC until after she returns from trip and not D/C today, would be do for progress note at return after trip. PT-OP-D Balance Start: 10/27/24 10:21 Freq: Status: Active Protocol: Document 11/26/24 14:36 BEAM CARRIER HAULER PUSHER (Rec: 11/26/24 15:18 BEAM CARRIER HAULER PUSHER Laptop) Balance Tests Single Limb Standing Single Limb- Right 7s without support Single Limb- Left 5s without support PT-OP-F Manual Assessment Start: 10/27/24 10:21 Freq: Status: Active Protocol: Document 10/27/24 10:23 BEAM CARRIER HAULER PUSHER (Rec: 10/27/24 12:55 BEAM CARRIER HAULER PUSHER Laptop) Manual Assessments Soft Tissue Assessment Soft Tissue Mobility Decreased soft tissue mobility to R lumbar paraspinals Assessment and R and L glute/piriformis with TTP to R lumbar paraspinals PT-OP-G Mobility & Gait Start: 10/27/24 10:21 Freq: Status: Active Protocol: Document 10/27/24 10:23 BEAM CARRIER HAULER PUSHER (Rec: 10/27/24 12:55 BEAM CARRIER HAULER PUSHER Laptop) OP Gait Assessment Comments Gait Comments Weight shift and lean to R side including lean to L hip and shoulder elevated, slight unsteadiness of gait but without LOB Stair Climbing Evaluation Comments Stair Climbing 6 stairs with 1 HR Comments Ascend and descend normal reciprocal pattern with B hip drop d/t weakness R>L PT-OP-H Neuro Start: 10/27/24 10:21 Freq: Status: Active Protocol: Document 10/27/24 10:23 BEAM CARRIER HAULER PUSHER (Rec: 10/27/24 12:55 BEAM CARRIER HAULER PUSHER Laptop) Sensation Evaluation Comments Summary Comments Reports tingling at times in her mid back but at this time no N/T anywhere PT-OP-L Special Tests Start: 10/27/24 10:21 Freq: Status: Active Protocol: Document 10/27/24 10:23 BEAM CARRIER HAULER PUSHER (Rec: 10/27/24 12:55 BEAM CARRIER HAULER PUSHER Laptop) Special Tests Lumbar Spine Special Tests Slump Test Results Positive on L Comments mildly positive PT-OP-M Strength Start: 10/27/24 10:21 Freq: Status: Active Protocol: Document 11/26/24 14:36 BEAM CARRIER HAULER PUSHER (Rec: 11/26/24 15:18 BEAM CARRIER HAULER PUSHER Laptop) Hip Strength Hip Manual Muscle Testing L Flexion (L2) 4+ Good+ Extension (S1) 4 Good Abduction 4+ Good+ Comments Prone RLE heel to buttock: 12.5 Sidelying LLE heel to buttock: 14 R Flexion (L2) 4+ Good+ Extension (S1) 4 Good Abduction 4- Good- Knee Strength Knee Manual Muscle Testing L Flexion (S2) 4 Good Extension (L3) 4+ Good+ R Flexion (S2) 4+ Good+ Extension (L3) 5 Normal Ankle/Foot Strength Ankle and Foot Manual Muscle Testing L Dorsiflexion (L4) 4+ Good+ R Dorsiflexion (L4) 4+ Good+ PT-OP-Q Treatments Start: 10/27/24 10:21 Freq: Status: Active Protocol: Document 11/24/24 14:44 NBM (Rec: 11/24/24 16:03 NBM Laptop) Therapeutic Exercises Supine Exercises Bridges Supine Exercise Name DL bridging w/ TrA and breathwork Side bilateral Equipment Used following manual therapy Reps/Minutes x8 w/ breathwork and progressively decreasing cues Comments VCs for foot placement, TA contraction, and breathwork; no cramping Manual Therapy Treatment Consent Patient gave verbal Yes consent for manual treatment Soft Tissue Mobilization Hip Body Location B TFL, ITB, Gluteal medius m.; R Greater trochanter, adductors Mobilization Type Cross-Friction,Rolling,Sustained Pressure,Other Intensity/Depth Moderate Body Position Sidelying Comments ice massage to L hip (TFL, ITB, Gluteal med). STM w/ breathwork - R adductors palpable tension improves; positive feedback response. Self-Care/Home Management Treatment Education Patient Education Body Mechanics,Home Exercise Program,Pain Management, Safety Other Education Verbal review: ice cup massage for home use. Verbal review of sidelying sleep positioning and pillow supports between ankles for full LE alignment. Verbal review to pt re: interrelationship between diaphragm, TrA, pelvic floor and hip adductors, and importance of not holding breath HEP and activity. Significant time spent on incorporating breathwork into bridging HEP - HO given and emailed per pt request. Edu for breathwork for Parasympathetic NS activation to address muscle tension due to pain apprehension and breathholding compensation - R adductor m. palpable tension improves. PT-OP-T Assessment and Plan Start: 10/27/24 10:21 Freq: Status: Active Protocol: Document 11/26/24 14:36 BEAM CARRIER HAULER PUSHER (Rec: 11/26/24 15:18 BEAM CARRIER HAULER PUSHER Laptop) Physical Therapy Assessment Goals 4. Impairment Function Impairment oswestry low back pain Short Term Goal (STG Pt will improve oswestry score from 22% to 50% to ) improve functional mobility STG Duration 6 weeks Mcc Goal (LTG) Pt will improve oswestry score from 22% to 75% to improve functional mobility LTG Duration 12 weeks 3. Impairment Balance Impairment SLS on eval: R 9s, L 2s Short Term Goal (STG Pt will demonstrate improved balance with B SLS 30s on ) stable surface without UE support 11/26: Progressing on L, decreasing on R: R 7s, L 5s STG Duration 6 weeks Mcc Goal (LTG) Pt will demonstrate improved balance with B SLS 60s on stable surface without UE support LTG Duration 12 weeks 2. Impairment Strength Impairment BLE strength L hip flex 4, hip ext 4-, hip abd 4; knee flex 3+, knee ext 4; DF 4- R hip flex 4, hip ext 3-, hip abd 4-; knee flex 4, knee ext 5; DF 4 Short Term Goal (STG Pt will improve BLE strength by 2 MMT scores to improve ) functional mobility 11/26: Progressing: L hip/knee ext improved by 1; knee flex/DF improved by 2; R hip/knee flex/DF improved by 1, hip ext improved by 4 , hip abd same; knee ext decreased by 3; STG Duration 6 weeks Product Handler Goal (LTG) Pt will demonstrate picking up 10 objects from floor during session with good form and without onset of pain . LTG Duration 12 weeks 1. Impairment ROM Impairment Decreased B quad/HS length Eval: Prone heel to butt: R 14, L 11.4 Short Term Goal (STG Pt will improve prone heel to buttock length by 2 for ) improved quad length and functional mobility 11/26: Progressing with R, declining with L quad length: R 12.5 , L 14 STG Duration 6 weeks Product Handler Goal (LTG) Pt will improve prone heel to buttock length by 4 for improved quad length and functional mobility LTG Duration 12 weeks Assessment Summary Assessment Pt demonstrates mixed progress towards all goals on R vs L strength, flexibility, and balance but reports overall feeling of improvement with pain, function, and management of pain through HEP. She will continue to benefit from skilled PT to progress towards goals. Physical Therapy Plan Frequency and Duration Frequency of 2-3x/wk Treatment Duration of 12 treatment (weeks) Plan of Care Start 10/27/24 Date Plan of Care End 01/19/25 Date Therapeutic Interventions Therapeutic Balance Training,Gait Training,Home Exercise Program, Interventions Manual Therapy,Neuromuscular Re-education,Soft Tissue Mobilization,Taping,Therapeutic Activities,Therapeutic Exercises Modalities Cold Pack/Ice Massage,Electric Stimulation,Hot Packs, Infrared Therapy,Traction- Mechanical,Ultrasound Next Visit Focus/Plan Next Note Type Progress Note
--- NOTE | 2025-02-11 16:06 | PT.OPDS ---
Per last PT session on 11/26, pt planned to return from her lengthy trip abroad at the beginning of January and planned to return to PT to continue her POC. Pt has not called to schedule more appointments and her POC 01/19. Called pt and left a voicemail explaining she will be discharged from PT and advised to obtain new doctor's referral to return to PT. D/C PT. Current Diagnoses Other intervertebral disc degeneration, lumbosacral region with discogenic back pain and lower extremity pain (11/26/24) Radiculopathy, lumbar region (11/26/24) Visit Care Team Role Provider Type Chitra Lr MD Attending Provider Physician Family Provider Primary Care Provider Referring Provider Specialty: [facility] Practice Address: [address] [place] [address], [facility] [place] [place], [facility] Email: [email or web address] Visit Number Visit Number 10 Discharge Summary PT-OP-A Visit Information Start: 10/27/24 10:21 Freq: Status: Active Protocol: Document 11/26/24 14:36 YARN WEIGHER (Rec: 11/26/24 15:18 YARN WEIGHER Laptop) Out-Patient Physical Therapy Visit Information Visit Information Visit Type Progress Note Visit Start Time 14:35 Visit Stop Time 15:18 Visit Number 10 Number of DATA MODELER Visits 0 Evaluation Information Evaluation Date 10/27/24 Precautions Precautions Mild Fall risk PT-OP-B Current Condition Start: 10/27/24 10:21 Freq: Status: Active Protocol: Document 10/27/24 10:23 YARN WEIGHER (Rec: 10/27/24 12:55 YARN WEIGHER Laptop) Current Condition History of Current Condition Onset Date 3 years ago Current Complaints low back pain, difficulty bending and lifting History of Current 3 years ago had B leg weakness and falls, had MRI and Condition found a herniated disc at L3-L4 and had emergency surgery. Prior Treatments and R PATTI 2015 ant approach Tests Treatment Goals Patient/Caregiver Pt reports he daughter has been sick and she needs to Goals go to [place] (36 hour trip) to take care of daughter December 08 for unknown amount of time. Pt reports she wakes up with back pain and uses ice or heat for pain management. She feels stiff in the morning and but better once she gets up and starts walking around. Pt reports she feels like she's leaning to her R and feels off balance when standing on her R leg. Pt has 3 stairs into her garage with 1 rail, has had a fall down front steps without a rail. Pt reports she normally walks about 2-3 miles a day, now walks about 3,000 steps a day. Pt reports bending and lifting cause back pain to be worse. 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 PT-OP-C Subjective Start: 10/27/24 10:21 Freq: Status: Active Protocol: Document 11/26/24 14:36 YARN WEIGHER (Rec: 11/26/24 15:18 YARN WEIGHER Laptop) OP-PT Subjective Patient Comments Patient Comments MJ reports current 2/10 pain level behind L knee. Pt states she has felt okay since last session but did not do too much after session. She reports practicing the breathing exercises and they help her a lot and ice massage helps tremendously, is planning to do them while on trip to [place]. Pt leaves on 12/07 and plans to come back first of January, is wanting to keep POC until after she returns from trip and not D/C today, would be do for progress note at return after trip. PT-OP-D Balance Start: 10/27/24 10:21 Freq: Status: Active Protocol: Document 11/26/24 14:36 YARN WEIGHER (Rec: 11/26/24 15:18 YARN WEIGHER Laptop) Balance Tests Single Limb Standing Single Limb- Right 7s without support Single Limb- Left 5s without support PT-OP-F Manual Assessment Start: 10/27/24 10:21 Freq: Status: Active Protocol: Document 10/27/24 10:23 YARN WEIGHER (Rec: 10/27/24 12:55 YARN WEIGHER Laptop) Manual Assessments Soft Tissue Assessment Soft Tissue Mobility Decreased soft tissue mobility to R lumbar paraspinals Assessment and R and L glute/piriformis with TTP to R lumbar paraspinals PT-OP-G Mobility & Gait Start: 10/27/24 10:21 Freq: Status: Active Protocol: Document 10/27/24 10:23 YARN WEIGHER (Rec: 10/27/24 12:55 YARN WEIGHER Laptop) OP Gait Assessment Comments Gait Comments Weight shift and lean to R side including lean to L hip and shoulder elevated, slight unsteadiness of gait but without LOB Stair Climbing Evaluation Comments Stair Climbing 6 stairs with 1 HR Comments Ascend and descend normal reciprocal pattern with B hip drop d/t weakness R>L PT-OP-H Neuro Start: 10/27/24 10:21 Freq: Status: Active Protocol: Document 10/27/24 10:23 YARN WEIGHER (Rec: 10/27/24 12:55 YARN WEIGHER Laptop) Sensation Evaluation Comments Summary Comments Reports tingling at times in her mid back but at this time no N/T anywhere PT-OP-L Special Tests Start: 10/27/24 10:21 Freq: Status: Active Protocol: Document 10/27/24 10:23 YARN WEIGHER (Rec: 10/27/24 12:55 YARN WEIGHER Laptop) Special Tests Lumbar Spine Special Tests Slump Test Results Positive on L Comments mildly positive PT-OP-M Strength Start: 10/27/24 10:21 Freq: Status: Active Protocol: Document 11/26/24 14:36 YARN WEIGHER (Rec: 11/26/24 15:18 YARN WEIGHER Laptop) Hip Strength Hip Manual Muscle Testing L Flexion (L2) 4+ Good+ Extension (S1) 4 Good Abduction 4+ Good+ Comments Prone RLE heel to buttock: 12.5 Sidelying LLE heel to buttock: 14 R Flexion (L2) 4+ Good+ Extension (S1) 4 Good Abduction 4- Good- Knee Strength Knee Manual Muscle Testing L Flexion (S2) 4 Good Extension (L3) 4+ Good+ R Flexion (S2) 4+ Good+ Extension (L3) 5 Normal Ankle/Foot Strength Ankle and Foot Manual Muscle Testing L Dorsiflexion (L4) 4+ Good+ R Dorsiflexion (L4) 4+ Good+ PT-OP-T Assessment and Plan Start: 10/27/24 10:21 Freq: Status: Active Protocol: Document 11/26/24 14:36 YARN WEIGHER (Rec: 11/26/24 15:18 YARN WEIGHER Laptop) Physical Therapy Assessment Goals 4. Impairment Function Impairment oswestry low back pain Short Term Goal (STG Pt will improve oswestry score from 22% to 50% to ) improve functional mobility STG Duration 6 weeks Correction Goal (LTG) Pt will improve oswestry score from 22% to 75% to improve functional mobility LTG Duration 12 weeks 3. Impairment Balance Impairment SLS on eval: R 9s, L 2s Short Term Goal (STG Pt will demonstrate improved balance with B SLS 30s on ) stable surface without UE support 11/26: Progressing on L, decreasing on R: R 7s, L 5s STG Duration 6 weeks Certified Medication Technician Goal (LTG) Pt will demonstrate improved balance with B SLS 60s on stable surface without UE support LTG Duration 12 weeks 2. Impairment Strength Impairment BLE strength L hip flex 4, hip ext 4-, hip abd 4; knee flex 3+, knee ext 4; DF 4- R hip flex 4, hip ext 3-, hip abd 4-; knee flex 4, knee ext 5; DF 4 Short Term Goal (STG Pt will improve BLE strength by 2 MMT scores to improve ) functional mobility 11/26: Progressing: L hip/knee ext improved by 1; knee flex/DF improved by 2; R hip/knee flex/DF improved by 1, hip ext improved by 4 , hip abd same; knee ext decreased by 3; STG Duration 6 weeks Correction Goal (LTG) Pt will demonstrate picking up 10 objects from floor during session with good form and without onset of pain . LTG Duration 12 weeks 1. Impairment ROM Impairment Decreased B quad/HS length Eval: Prone heel to butt: R 14, L 11.4 Short Term Goal (STG Pt will improve prone heel to buttock length by 2 for ) improved quad length and functional mobility 11/26: Progressing with R, declining with L quad length: R 12.5 , L 14 STG Duration 6 weeks Certified Medication Technician Goal (LTG) Pt will improve prone heel to buttock length by 4 for improved quad length and functional mobility LTG Duration 12 weeks Assessment Summary Assessment Pt demonstrates mixed progress towards all goals on R vs L strength, flexibility, and balance but reports overall feeling of improvement with pain, function, and management of pain through HEP. She will continue to benefit from skilled PT to progress towards goals. Physical Therapy Plan Frequency and Duration Frequency of 2-3x/wk Treatment Duration of 12 treatment (weeks) Plan of Care Start 10/27/24 Date Plan of Care End 01/19/25 Date Therapeutic Interventions Therapeutic Balance Training,Gait Training,Home Exercise Program, Interventions Manual Therapy,Neuromuscular Re-education,Soft Tissue Mobilization,Taping,Therapeutic Activities,Therapeutic Exercises Modalities Cold Pack/Ice Massage,Electric Stimulation,Hot Packs, Infrared Therapy,Traction- Mechanical,Ultrasound Next Visit Focus/Plan Next Note Type Progress Note
== END 2025-02-16 08:56 | disposition home or self-care (01) ==
LOC: PHYS 14:30
PROVIDERS: Family Provider Family Medicine; PCP Family Medicine; Referring Provider Family Medicine; Visit Provider Family Medicine
DX: M51.372 Other intervertebral disc degeneration, lumbosacral region with discogenic back pain and lower extremity pain (principal); M54.16 Radiculopathy, lumbar region
CPT/HCPCS: 97110; 97112; 97140; 97162; 97535